=== PATIENT | male | born 1990 | race African-American/Black ===

== ENCOUNTER 2016-12-02 06:28 | Emergency (ER) | payer SELFPAY ==
[~2016-12-02] VITALS: Ht 182.9 cm; Wt 81.6 kg
[~2016-12-02 06:28] MED LIST: ALBU0.632 IH; AMOX500C2 PO; AZIT250T PO; CYCL10TA9 PO; DOXY100C42 PO; HYDR-1231 PO; HYDR-3812 PO; HYDR-700 PO; LORA10CA PO; MINO100C2 PO; NAPR-243 PO; NAPR500T PO; ONDA8TAB9 PO; PENI500T PO; PRD20T PO; PROM5SYR PO; RT-ALBUINH IH; TRAM-42 PO; TRAM50TA2 PO
[2016-12-02] MEDS ORDERED: NS IV 1000 ML 1,000 ML IV ONE (06:44)
[2016-12-02] MEDS ORDERED: predniSONE 20 MG TAB PO ONE (06:45)
[2016-12-02 06:57] LABS: BASOPHILS % (AUTO) 0 % (0-10); EOSINOPHILS # (AUTO) 0.3 10^3/uL (0.0-0.3); EOSINOPHILS % (AUTO) 3 % (0-10); LYMPHOCYTES % (AUTO) 46 % (12-44); MEAN CORPUSCULAR HEMOGLOBIN 28 PG (25-34); MEAN CORPUSCULAR HGB CONC 32 G/DL (32-36); MEAN CORPUSCULAR VOLUME 86 FL (80-99); MEAN PLATELET VOLUME 10.1 FL (7.4-10.4); MONOCYTES # (AUTO) 0.8 X 10^3 (0.0-1.0); MONOCYTES % (AUTO) 9 % (0-12); NEUTROPHILS # (AUTO) 3.6 X 10^3 (1.8-7.8); NEUTROPHILS % (AUTO) 42 % (42-75); PLATELET COUNT 245 10^3/uL (130-400); RED BLOOD COUNT 5.33 10^6/uL (4.35-5.85); WHITE BLOOD COUNT 8.6 10^3/uL (4.3-11.0)
--- NOTE | 2016-12-02 07:06 | ED General ---
General Chief Complaint: General Problems/Pain Stated Complaint: NOT FEELING WELL Nursing Triage Note: C/O WEAKNESS/WEIGHT LOSS Nursing Sepsis Screen: No Definite Risk Source of Information: Patient Exam Limitations: No Limitations History of Present Illness Time Seen by Provider: 06:38 Initial Comments Here with report of continued weakness or weight loss as well as all over and was not feeling well. States that he is eating and drinking okay and no problems with bowel movements or urination. Does report continued weight loss. 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 He has been evaluated for this for over 2 years now. He is currently on prednisone 20 mg daily. Reports taking that as directed. Denies fevers recently. Complaints of persistent muscle aches and weight loss. Timing/Duration: 1-2 Days, Getting Worse Severity: Moderate Associated Systoms: No Chest Pain, No Cough, No Fever/Chills, No Nausea/ Vomiting, No Shortness of Air, Weakness Allergies and Home Medications Allergies Coded Allergies: No Known Drug Allergies (Unverified , 06/14/14) Home Medications Naproxen 500 Mg Tablet #30 500 MG PO BID PRN PRN PAIN Prescribed by: NARESH MATHIS on 11/18/16 1320 Ondansetron 8 Mg Tab.rapdis #10 8 MG PO Q4H PRN PRN NAUSEA/VOMITING Prescribed by: NARESH MATHIS on 10/31/16 1523 Penicillin V Potassium 500 Mg Tablet #28 500 MG PO Q6H Prescribed by: NARESH MATHIS on 11/18/16 1320 Prednisone 20 Mg Tab 20 MG PO DAILY (Reported) Tramadol HCl 50 Mg Tablet #14 50 MG PO Q6H PRN PRN PAIN Prescribed by: NARESH MATHIS on 11/18/16 1320 Constitutional: see HPINo chills, No fever EENTM: no symptoms reported Respiratory: no symptoms reportedNo cough, No short of breath Cardiovascular: no symptoms reportedNo chest pain, No palpitations Gastrointestinal: no symptoms reported see HPINo nausea, No vomiting Genitourinary: no symptoms reported Musculoskeletal: see HPI muscle weakness other (all over muscle pain) Skin: no symptoms reported Psychiatric/Neurological: See HPI All Other Systems Reviewed Negative Unless Noted: Yes Past Ayhadtx-Tkpmik-Riewjf Hx Patient Social History Alcohol Use: Denies Use Recreational Drug Use: No Smoking Status: Current Everyday Smoker Type Used: Cigarettes Former Smoker/When Quit: Feb 04, 2014 Recent Foreign Travel: No Contact w/Someone Who Travel: No Recent Infectious Disease Expo: No Recent Hopitalizations: No Physical Abuse Screen: No Sexual Abuse: No Immunizations Up To Date Tetanus Booster (TDap): Less than 5yrs Date of Pneumonia Vaccine: Apr 25, 2014 Date of Influenza Vaccine: Jul 25, 2013 Seasonal Allergies Seasonal Allergies: Yes Surgeries HX Surgeries: No Respiratory Hx Respiratory Disorders: Yes Respiratory Disorders: Asthma Cardiovascular Hx Cardiac Disorders: No Neurological Hx Neurological Disorders: No Reproductive System Hx Reproductive Disorders: No Sexually Transmitted Disease: No HIV/AIDS: No Genitourinary Hx Genitourinary Disorders: No Gastrointestinal Hx Gastrointestinal Disorders: No Musculoskeletal Hx Musculoskeletal Disorders: Yes (RARE MUSCLE DISEASE-REPORTS NOT SURE WHAT IT IS, TAKES ORAL STEROIDS DAILY) Endocrine Hx Endocrine Disorders: No HEENT HX ENT Disorders: No Cancer Hx Cancer: No Psychosocial Hx Psychiatric Problems: No Integumentary HX Skin/Integumentary Disorder: No Blood Transfusions Hx Blood Disorders: No Reviewed Nursing Assessment Reviewed/Agree w Nursing PMH: Yes Family Medical History Significant Family History: No Pertinent Family Hx Family Medial History: Patient reports no known family medical history. Physical Exam Vital Signs Vital Sign - Last 12Hours 12/02/16 06:43 Temp 97.8 Pulse 87 Resp 20 B/P 147/101 Pulse Ox 98 O2 Delivery Room Air Capillary Refill : Less Than 3 Seconds General Appearance: No Apparent Distress WD/WN HEENT: PERRL/EOMI Pharynx Normal Neck: Non Tender Supple Respiratory: Lungs Clear Normal Breath Sounds Cardiovascular: Regular Rate, Rhythm No Murmur Gastrointestinal: Non Tender Soft Back: Normal Inspection No CVA Tenderness No Vertebral Tenderness Extremity: Non Tender No Calf Tenderness Neurologic/Psychiatric: Alert Oriented x3 Skin: Normal Color Warm/Dry Progress/Results/Core Measures Results/Orders Lab Results Laboratory Tests Test 12/02/16 06:50 12/02/16 07:30 Range/Units Alanine Aminotransferase (ALT/SGPT) 22 0-55 U/L Albumin 4.1 3.2-4.5 G/DL Alkaline Phosphatase 75 40-136 U/L Anion Gap 11 5-14 MMOL/L Aspartate Amino Transf (AST/SGOT) 14 5-34 U/L BUN/Creatinine Ratio 10 Basophils # (Auto) 0.0 0.0-0.1 10^3/uL Basophils (%) (Auto) 0 0-10 % Blood Urea Nitrogen 11 7-18 MG/DL Calcium Level 9.5 8.5-10.1 MG/DL Carbon Dioxide Level 29 21-32 MMOL/L Chloride Level 101 98-107 MMOL/L Creatinine 1.07 0.60-1.30 MG/DL Eosinophils # (Auto) 0.3 0.0-0.3 10^3/uL Eosinophils (%) (Auto) 3 0-10 % Estimat Glomerular Filtration Rate > 60 Glucose Level 101 70-105 MG/DL Hematocrit 46 40-54 % Hemoglobin 14.9 13.3-17.7 G/DL Lymphocytes # (Auto) 4.0 1.0-4.0 X 10^3 Lymphocytes (%) (Auto) 46 H 12-44 % Mean Corpuscular Hemoglobin 28 25-34 PG Mean Corpuscular Hemoglobin Concent 32 32-36 G/DL Mean Corpuscular Volume 86 80-99 FL Mean Platelet Volume 10.1 7.4-10.4 FL Monocytes # (Auto) 0.8 0.0-1.0 X 10^3 Monocytes (%) (Auto) 9 0-12 % Neutrophils # (Auto) 3.6 1.8-7.8 X 10^3 Neutrophils (%) (Auto) 42 42-75 % Platelet Count 245 130-400 10^3/uL Potassium Level 3.5 L 3.6-5.0 MMOL/L Red Blood Count 5.33 4.35-5.85 10^6/uL Red Cell Distribution Width 13.0 10.0-14.5 % Sodium Level 141 135-145 MMOL/L Total Bilirubin 1.1 H 0.1-1.0 MG/DL Total Creatine Kinase 117 30-200 U/L Total Protein 6.7 6.4-8.2 G/DL White Blood Count 8.6 4.3-11.0 10^3/uL Urine Bacteria NEGATIVE /HPF Urine Bilirubin NEGATIVE NEGATIVE Urine Casts NONE /LPF Urine Clarity CLEAR Urine Color YELLOW Urine Crystals NONE /LPF Urine Culture Indicated NO Urine Glucose (UA) NEGATIVE NEGATIVE Urine Ketones NEGATIVE NEGATIVE Urine Leukocyte Esterase 1+ H NEGATIVE Urine Mucus SMALL H /LPF Urine Nitrite NEGATIVE NEGATIVE Urine Protein NEGATIVE NEGATIVE Urine RBC 0-2 /HPF Urine RBC (Auto) 2+ H NEGATIVE Urine Specific [place] 1.015 L 1.016-1.022 Urine Squamous Epithelial Cells RARE /HPF Urine Urobilinogen 4 H NORMAL MG/DL Urine WBC 0-2 /HPF Urine pH 6.5 5-9 Micro Results Microbiology 12/02/16 Influenza Types A,B Antigen (RA) - Final, Complete My Orders Orders-MAURY ROJO MD Cbc With Automated Diff (12/02/16 06:44) Comprehensive Metabolic Panel (12/02/16 06:44) Ua Culture If Indicated (12/02/16 06:44) Influenza A And B Antigens (12/02/16 06:44) Saline Lock/Iv-Start (12/02/16 06:44) Ns Iv 1000 Ml (Sodium Chloride 0.9%) (12/02/16 06:44) Prednisone Tablet (Deltasone Tablet) (12/02/16 06:45) Creatine Kinase (12/02/16 06:48) Medications Given in ED Current Medications Medications Dose Ordered Sig/Wilfred Route Start Time Stop Time Status Last Admin Dose Admin Prednisone 40 mg ONCE ONCE PO 12/02/16 06:45 12/02/16 06:46 DC 12/02/16 06:50 40 MG Sodium Chloride 1,000 ml @ 0 mls/hr Q0M ONCE IV 12/02/16 06:44 12/02/16 06:46 DC 12/02/16 06:50 0 MLS/HR Vital Signs/I&O Vital Sign - Last 12Hours 12/02/16 06:43 Temp 97.8 Pulse 87 Resp 20 B/P 147/101 Pulse Ox 98 O2 Delivery Room Air Blood Pressure Mean: 116 Progress Note : Progress Note Seen and evaluated. 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 Monitor patient. 0750: No significant findings. Patient instructed to follow- up with primary care provider today. Patient states he will do that. Discharged home with return precautions. Patient verbalize understanding instructions and agreement with plan. Departure Impression Impression: Primary Impression: Myalgia Disposition: 01 HOME, SELF-CARE Condition: Improved Departure-Patient Inst. Decision time for Depature: 07:51 Referrals: [facility] [place], [place] (PCP/Family) Primary Care Physician Patient Instructions: Fatigue Add. Discharge Instructions: All discharge instructions reviewed with patient and/or family. Voiced understanding. Drink plenty of fluids. Follow-up with your Dr. today for recheck and further evaluation. Return for worse pain, fever, vomiting, weakness, breathing problems or other concerns as needed. MAURY ROJO MD Dec 02, 2016 07:05
[2016-12-02 07:22] LABS: ALANINE AMINOTRANSFERASE 22 U/L (0-55); ALBUMIN 4.1 G/DL (3.2-4.5); ANION GAP 11 MMOL/L (5-14); ASPARTATE AMINO TRANSFERASE 14 U/L (5-34); BILIRUBIN,TOTAL 1.1 MG/DL (0.1-1.0); BLOOD UREA NITROGEN 11 MG/DL (7-18); BUN/CREATININE RATIO 10; CALCIUM 9.5 MG/DL (8.5-10.1); CARBON DIOXIDE 29 MMOL/L (21-32); CHLORIDE 101 MMOL/L (98-107); CREATINE KINASE 117 U/L (30-200); CREATININE SERUM 1.07 MG/DL (0.60-1.30); GFR ESTIMATED > 60; GLUCOSE 101 MG/DL (70-105); POTASSIUM 3.5 MMOL/L (3.6-5.0); SODIUM 141 MMOL/L (135-145); TOTAL PROTEIN 6.7 G/DL (6.4-8.2)
[2016-12-02 07:40] LABS: BILIRUBIN,URINE NEGATIVE (NEGATIVE); KETONES,URINE NEGATIVE (NEGATIVE); LEUKOCYTE ESTERASE ,URINE 1+ (NEGATIVE); NITRITE,URINE NEGATIVE (NEGATIVE); PH,URINE 6.5 (5-9); PROTEIN,URINE NEGATIVE (NEGATIVE); UROBILINOGEN,URINE 4 MG/DL (NORMAL)
[2016-12-02 07:58] LABS: SQUAMOUS EPITHELIAL CELL,UR RARE /HPF; WBC,URINE 0-2 /HPF
[2016-12-02 08:10] VITALS: BP 138/96
== END 2016-12-02 08:10 | disposition home or self-care (01) ==
LOC: EDUNIT# 06:28 → ER 06:34
DX: M79.1 Myalgia (principal); Z79.52 Long term (current) use of systemic steroids
CPT/HCPCS: 36415; 80053; 81000; 82550; 85025; 87804

== ENCOUNTER 2017-02-17 16:09 | Emergency (ER) | payer SELFPAY ==
[~2017-02-17] VITALS: Ht 180.3 cm; Wt 86.2 kg
--- NOTE | 2017-02-17 16:59 | ED EENT ---
History of Present Illness General Chief Complaint: Dental Problems/Pain Stated Complaint: DENTAL PAIN Nursing Triage Note: PT REPORTS HAD TOOTH PULLED AT [facility] ET C/O PAIN. REPORTS NO PAIN MEDS WERE PRESCRIBED FOR HIM Source: patient Exam Limitations: no limitations History of Present Illness Time seen by provider: 16:59 Initial Comments 26 her old male patient presents to the emergency department with complaints of dental pain after having a tooth extracted today. Patient states he was not given anything for pain at the dental clinic. Has taken motrin w/o improvement. Timing/Duration: abrupt, this afternoon Location: dental Prearrival Treatment: over the counter meds Presenting Symptoms/Injuries: left lower dental pain Modifying Factors: Worse With Other (worse with palpation) Allergies and Home Medications Allergies Coded Allergies: No Known Drug Allergies (Unverified , 06/14/14) Home Medications Hydrocodone/Acetaminophen 1 Each Tablet, 1 EACH PO Q4H PRN for PAIN, #14 Ref 0 Prescribed by: TED STREET on 02/17/17 1713 Naproxen 500 Mg Tablet, 500 MG PO BID PRN for PAIN, #30 Prescribed by: NARESH MATHIS on 11/18/16 1320 Ondansetron 8 Mg Tab.rapdis, 8 MG PO Q4H PRN for NAUSEA/VOMITING, #10 Prescribed by: NARESH MATHIS on 10/31/16 1523 Penicillin V Potassium 500 Mg Tablet, 500 MG PO Q6H, #28 Prescribed by: NARESH MATHIS on 11/18/16 1320 Prednisone 20 Mg Tab, 20 MG PO DAILY, (Reported) Tramadol HCl 50 Mg Tablet, 50 MG PO Q6H PRN for PAIN, #14 Prescribed by: NARESH MATHIS on 11/18/16 1320 Review of Systems Constitutional: No chills, No dizziness, No fever, No malaise Eyes: No Symptoms Reported Ears: No Symptoms Reported Nose: no symptoms reported Mouth: see HPI, pain, denies swelling Throat: denies pain, denies swelling, denies neck stiffness, denies hoarse, denies aphonia, denies muffled, denies painful swallowing, denies difficulty with fluids Respiratory: no symptoms reported Cardiovascular: no symptoms reported Gastrointestinal: No abdominal pain, No nausea, No vomiting Skin: no symptoms reported Neurological: No Symptoms Reported All Other Systems Reviewed Negative Unless Noted: Yes (Negative excepted noted.) Past Emhycuo-Hqyowp-Ptphnv Hx Patient Social History Alcohol Use: Denies Use Recreational Drug Use: No Smoking Status: Current Everyday Smoker Type Used: Cigarettes Former Smoker/When Quit: Feb 04, 2014 Recent Foreign Travel: No Contact w/Someone Who Travel: No Recent Infectious Disease Expo: No Recent Hopitalizations: No Immunizations Up To Date Tetanus Booster (TDap): Less than 5yrs Date of Pneumonia Vaccine: Apr 25, 2014 Date of Influenza Vaccine: Jul 25, 2013 Seasonal Allergies Seasonal Allergies: Yes Surgeries HX Surgeries: No (DENTAL SURG) Respiratory Hx Respiratory Disorders: Yes Respiratory Disorders: Asthma Cardiovascular Hx Cardiac Disorders: No Neurological Hx Neurological Disorders: No Reproductive System Hx Reproductive Disorders: No Sexually Transmitted Disease: No HIV/AIDS: No Genitourinary Hx Genitourinary Disorders: No Gastrointestinal Hx Gastrointestinal Disorders: No Musculoskeletal Hx Musculoskeletal Disorders: Yes (RARE MUSCLE DISEASE-REPORTS NOT SURE WHAT IT IS, TAKES ORAL STEROIDS DAILY) Endocrine Hx Endocrine Disorders: No HEENT HX ENT Disorders: No Cancer Hx Cancer: No Psychosocial Hx Psychiatric Problems: No Integumentary HX Skin/Integumentary Disorder: No Blood Transfusions Hx Blood Disorders: No Reviewed Nursing Assessment Reviewed/Agree w Nursing PMH: Yes Family Medical History Significant Family History: No Pertinent Family Hx Family Medial History: Patient reports no known family medical history. Physical Exam Vital Signs Vital Sign - Last 12Hours 02/17/17 16:49 Temp 97.2 Pulse 70 Resp 18 B/P (MAP) 123/78 Pulse Ox 97 O2 Delivery Room Air General Appearance: WD/WN, no apparent distress Eyes: bilateral eye EOMI, bilateral eye PERRL, bilateral eye normal inspection Nose: normal inspection Mouth/Throat: pharynx normal, dental tenderness (left lower tenderness with post extraction changes. No active bleeding or drainage noted.), No excessive drooling, No mandibular swelling, No maxillary swelling Neck: non-tender, full range of motion, supple, normal inspection Cardiovascular: regular rate, rhythm, no murmur Respiratory: lungs clear, normal breath sounds, no respiratory distress Neurologic/Psychiatric: alert, normal mood/affect, oriented x 3 Skin: normal color, warm/dry Progress/Results/Core Measures Results/Orders My Orders Orders - TED STREET Hydrocodone/Apap 5/325 Tablet (Lortab 5 (02/17/17 17:11) Vital Signs/I&O Vital Sign - Last 12Hours 02/17/17 02/17/17 16:49 17:20 Temp 97.2 97.2 Pulse 70 70 Resp 18 18 B/P (MAP) 123/78 Pulse Ox 97 97 O2 Delivery Room Air Blood Pressure Mean: 93 Departure Communication Progress Notes Patient seen and evaluated. Plan for discharge to home. Impression Impression: Primary Impression: Pain, dental Additional Impression: Status post tooth extraction Qualified Codes: K08.409 - Partial loss of teeth, unspecified cause, unspecified class Disposition: HOME, SELF-CARE Condition: Improved Departure-Patient Inst. Decision time for Depature: 17:13 Referrals: [facility] (PCP/Family) Primary Care Physician Patient Instructions: Dental Pain (DC) Add. Discharge Instructions: All discharge instructions reviewed with patient and/or family. Voiced understanding. Medications as instructed. Ibuprofen 800 mg by mouth every 8 hours as needed for pain. Ice pack or a heating pack as needed for pain. Soft diet. Push fluids. Follow-up with your dentist as an outpatient for recheck if needed. Follow-up with your family practitioner for recheck if needed. Return to the emergency department for worsened symptoms or any other concerns. Scripts Hydrocodone/Acetaminophen (Hydrocodon -Acetaminophen 5-325) 1 Each Tablet 1 EACH PO Q4H Y for PAIN, #14 TAB 0 Refills Prov: TED STREET 02/17/[address] Feb 17, 2017 16:59
[2017-02-17] MEDS ORDERED: HYDROcodone/APAP 5 MG/325 MG (LORTAB) TAB PO STA (17:11)
[2017-02-17] MEDS ORDERED: HYDR-3812 PO (17:13)
[2017-02-17 17:20] VITALS: BP 123/78
--- OUTSIDE RECORDS SUMMARY | 2017-03-04 18:55 | XMS REPORT ---
Author Author JUNE TAMAYO Organization [employer] Address Unknown Phone Unavailable Care Team Providers Care Cost Engineer Name Role Phone JUNE TAMAYO CP Unavailable Allergies No Known Allergies Problems Problem Type Condition Code Onset Dates Condition Status Problem Adjustment disorder with depressed mood 309.0 Active Problem Asthma, unspecified, unspecified status 493.90 Active Problem Other malaise and fatigue 780.79 Active Problem Polyuria 788.42 Active Problem Polydipsia 783.5 Active Problem Spasm of muscle 728.85 Active Problem Other chronic pain 338.29 Active Problem Depressive disorder, 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
--- OUTSIDE RECORDS SUMMARY | 2017-03-04 18:56 | XMS REPORT ---
Author Author JUNE TAMAYO Organization [employer] Address Unknown Phone Unavailable Care Team Providers Care Typer Name Role Phone JUNE TAMAYO CP Unavailable [...]
--- OUTSIDE RECORDS SUMMARY | 2017-03-04 18:56 | XMS REPORT ---
Author Author JUNE TAMAYO Organization [employer] Address Unknown Phone Unavailable Care Team Providers Care Acquisitions Editor Name Role Phone JUNE TAMAYO CP Unavailable Allergies No Known Allergies Problems Problem Type Condition ICD-9 Code Onset Dates Condition Status Problem Adjustment [...]
--- OUTSIDE RECORDS SUMMARY | 2017-03-04 18:57 | XMS REPORT ---
Author Author JUNE TAMAYO Organization [employer] Address Unknown Phone Unavailable Care Team Providers Care Mergers And Acquisitions Banker Name Role Phone JUNE TAMAYO CP Unavailable [...]
--- OUTSIDE RECORDS SUMMARY | 2017-03-04 18:57 | XMS REPORT ---
Author Author JUNE TAMAYO Organization [employer] Address Unknown Phone Unavailable Care Team Providers Care Assistant Warehouse Manager Name Role Phone JUNE TAMAYO CP Unavailable [...] vaccination and inoculation, Influenza V04.81 Active Medications Medication Code System Code Instructions Start Date End Date Status Dosage HydrOXYzine HCl [facility] [address]-24 25 MG Orally every 8 hrs as needed Jul 26, 2015 1 tablet as needed Results No Known Results Summary Purpose [employer] Submission
--- OUTSIDE RECORDS SUMMARY | 2017-03-04 18:57 | XMS REPORT ---
Author Author JUNE TAMAYO Organization [employer] Address Unknown Phone Unavailable Care Team Providers Care Cage Manager Name Role Phone JUNE TAMAYO CP [...] Instructions Start Date End Date Status Dosage PredniSONE [facility] [address]-65 20 MG Orally Once a day May 22, 2015 1 tablet with food or milk Results No Known Results Summary Purpose [employer] Submission
--- OUTSIDE RECORDS SUMMARY | 2017-03-04 18:57 | XMS REPORT | Continuity of Care Document ---
Author Author [facility] Organization [facility] Address Unknown Phone Unavailable Allergies Active Description Code Type Severity Reaction Onset Reported/Identified Relationship to Patient Clinical Status Yes No Known Drug Allergies [id number] Drug Allergy Unknown N/ A 06/14/2014 Medications Problems Date Dx Coded Attending Type Code Diagnosis Diagnosed By 06/14/2014 NARESH MATHIS APRN Ot 782.3 EDEMA 06/14/2014 NARESH MATHIS APRN Ot E932.0 ADV EFF CORTICOSTEROIDS 06/16/2014 RANCHO AMAYA, TAMI Russell Ot 786.02 ORTHOPNEA 06/16/2014 RANCHO AMAYA, TAMI Russell Ot E932.0 ADV EFF CORTICOSTEROIDS 06/17/2014 JUNE TAMAYO APRN 493.90 ASTHMA UNSPECIFIED 06/17/2014 JUNE TAMAYO APRN 493.90 ASTHMA UNSPECIFIED 06/17/2014 ANA MARIA JARAMILLO PHD 493.90 ASTHMA UNSPECIFIED 06/17/2014 JUNE TAMAYO APRN 493.90 ASTHMA UNSPECIFIED 06/17/2014 CLINT MADDEN, ANA MARIA Dumont 493.90 ASTHMA UNSPECIFIED 06/17/2014 CLINT MADDEN, ANA MARIA Dumont 493.90 ASTHMA UNSPECIFIED 06/17/2014 SHANNA DE LA VEGA DO 493.90 ASTHMA UNSPECIFIED 06/25/2014 PARTH AMAYA, MEGA Light Ot 729.1 MYALGIA AND MYOSITIS NOS 06/27/2014 JUNE TAMAYO APRN 780.79 FATIGUE 06/27/2014 JUNE TAMAYO APRN 783.5 POLYDIPSIA 06/27/2014 JUNE TAMAYO APRN 788.42 POLYURIA 06/27/2014 CLINT MADDEN, ANA MARIA Dumont 780.79 FATIGUE 06/27/2014 ANA MARIA JARAMILLO PHD 783.5 POLYDIPSIA 06/27/2014 ANA MARIA JARAMILLO PHD 788.42 POLYURIA 06/27/2014 JUNE TAMAYO APRN 780.79 FATIGUE 06/27/2014 JUNE TAMAYO APRN 783.5 POLYDIPSIA 06/27/2014 JUNE TAMAYO APRN 788.42 POLYURIA 06/27/2014 ANA MARIA JARAMILLO PHD 780.79 FATIGUE 06/27/2014 ANA MARIA JARAMILLO PHD 783.5 POLYDIPSIA 06/27/2014 ANA MARIA JARAMILLO PHD 788.42 POLYURIA 06/27/2014 ANA MARIA JARAMILLO PHD 780.79 FATIGUE 06/27/2014 ANA MARIA JARAMILLO PHD 783.5 POLYDIPSIA 06/27/2014 ANA MARIA JARAMILLO PHD 788.42 POLYURIA 06/27/2014 SHANNA DE LA VEGA DO 780.79 FATIGUE 06/27/2014 SHANNA DE LA VEGA DO 783.5 POLYDIPSIA 06/27/2014 SHANNA DE LA VEGA DO 788.42 POLYURIA 08/07/2014 NARESH MATHIS DIESEL TRACTOR OPERATOR Ot 288.60 LEUKOCYTOSIS, UNSPECIFIED 08/07/2014 NARESH MATHIS DIESEL TRACTOR OPERATOR Ot 719.46 JOINT PAIN-L/LEG 08/11/2014 ANA MARIA JARAMILLO PHD 309.0 AD ADJ D/O W DEPRESSED 08/11/2014 JUNE TAMAYO APRN 309.0 AD ADJ D/O W DEPRESSED 08/11/2014 ANA MARIA JARAMILLO PHD 309.0 AD ADJ D/O W DEPRESSED 08/11/2014 ANA MARIA JARAMILLO PHD 309.0 AD ADJ D/O W DEPRESSED 08/11/2014 SHANNA DE LA VEGA DO 309.0 AD ADJ D/O W DEPRESSED 08/29/2014 JUNE TAMAYO APRN 338.29 CHRONIC PAIN 08/29/2014 JUNE TAMAYO APRN 728.85 MUSCLE SPASM 08/29/2014 ANA MARIA JARAMILLO PHD 338.29 CHRONIC PAIN 08/29/2014 ANA MARIA JARAMILLO PHD 728.85 MUSCLE SPASM 08/29/2014 ANA MARIA JARAMILOL PHD 338.29 CHRONIC PAIN 08/29/2014 ANA MARIA JARAMILLO PHD 728.85 MUSCLE SPASM 08/29/2014 SHANNA DE LA VEGA DO 338.29 CHRONIC PAIN 08/29/2014 SHANNA DE LA VEGA DO 728.85 MUSCLE SPASM 09/28/2014 ANA MARIA JARAMILLO PHD 311 MO DEPRESS NOS 09/28/2014 ANA MARIA JARAMILLO PHD 311 MO DEPRESS NOS 09/28/2014 SHANNA DE LA VEGA DO 311 MO DEPRESS NOS 11/29/2014 SHANNA DE LA VEGA DO V04.81 FLU SHOT 10/09/2015 TED VELA Ot J02.9 ACUTE PHARYNGITIS, UNSPECIFIED 10/09/2015 TED VELA Ot J18.9 PNEUMONIA, UNSPECIFIED ORGANISM 10/09/2015 TED VELA Ot R94.6 ABNORMAL RESULTS OF THYROID FUNCTION GABRIEL 04/16/2016 JOSH EDMONDSON MD Ot E86.0 DEHYDRATION 04/16/2016 JOSH EDMONDSON MD Ot M25.50 PAIN IN UNSPECIFIED JOINT 04/16/2016 JOSH EDMONDSON MD Ot M62.82 RHABDOMYOLYSIS 04/16/2016 JOSH EDMONDSON MD Ot N17.9 ACUTE KIDNEY FAILURE, UNSPECIFIED 04/16/2016 JOSH EDMONDSON MD Ot Z87.891 PERSONAL HISTORY OF NICOTINE DEPENDENCE 06/17/2016 TED VELA Ot K02.9 DENTAL CARIES, UNSPECIFIED 06/17/2016 TED VELA Ot K04.7 PERIAPICAL ABSCESS WITHOUT SINUS 06/17/2016 TED VELA Ot K08.8 OTHER SPECIFIED DISORDERS OF TEETH AND S 06/18/2016 TED VELA Ot K02.9 DENTAL CARIES, UNSPECIFIED 06/18/2016 TED VELA Ot K04.7 PERIAPICAL ABSCESS WITHOUT SINUS 06/18/2016 TED VELA Ot K08.8 OTHER SPECIFIED DISORDERS OF TEETH AND S 06/23/2016 TED VELA Ot K02.9 DENTAL CARIES, UNSPECIFIED 06/23/2016 TED VELA Ot K04.7 PERIAPICAL ABSCESS WITHOUT SINUS 06/23/2016 TED VELA Ot K08.8 OTHER SPECIFIED DISORDERS OF TEETH AND S 06/26/2016 MAURY ROJO MD Ot M79.1 MYALGIA 06/26/2016 MAURY ROJO MD Ot R10.31 RIGHT LOWER QUADRANT PAIN 06/26/2016 MAURY ROJO MD Ot Z87.442 PERSONAL HISTORY OF URINARY CALCULI 06/27/2016 MAURY ROJO MD Ot M79.1 MYALGIA 06/27/2016 MAURY ROJO MD Ot R10.31 RIGHT LOWER QUADRANT PAIN 06/27/2016 MAURY ROJO MD, Ot Z87.442 PERSONAL HISTORY OF URINARY CALCULI 07/16/2016 TED VELA Ot K02.9 DENTAL CARIES, UNSPECIFIED 07/16/2016 TED VELA Ot K04.7 PERIAPICAL ABSCESS WITHOUT SINUS 07/16/2016 TED VELA Ot K08.8 OTHER SPECIFIED DISORDERS OF TEETH AND S 07/19/2016 MAURY ROJO MD Ot M79.1 MYALGIA 07/19/2016 MAURY ROJO MD Ot R10.31 RIGHT LOWER QUADRANT PAIN 07/19/2016 MAURY ROJO MD Ot Z87.442 PERSONAL HISTORY OF URINARY CALCULI 10/24/2016 NARESH MATHIS APRN Ot J06.9 ACUTE UPPER RESPIRATORY INFECTION, UNSPE 10/24/2016 NARESH MATHIS APRN Ot M62.82 RHABDOMYOLYSIS 10/24/2016 NARESH MATHIS APRN Ot R09.81 NASAL CONGESTION 10/24/2016 NARESH MATHIS APRN Ot Z79.52 YARD ENGINEER (CURRENT) USE OF SYSTEMIC STER 10/25/2016 NARESH MATHIS APRN Ot J06.9 ACUTE UPPER RESPIRATORY INFECTION, UNSPE 10/25/2016 NARESH MATHIS APRN Ot M62.82 RHABDOMYOLYSIS 10/25/2016 NARESH MATHIS APRN Ot R09.81 NASAL CONGESTION 10/25/2016 NARESH MATHIS APRN Ot Z79.52 YARD ENGINEER (CURRENT) USE OF SYSTEMIC STER 10/30/2016 NARESH MATHIS APRN Ot J06.9 ACUTE UPPER RESPIRATORY INFECTION, UNSPE 10/30/2016 NARESH MATHIS APRN Ot M62.82 RHABDOMYOLYSIS 10/30/2016 NARESH MATHIS APRN Ot R09.81 NASAL CONGESTION 10/30/2016 NARESH MATHIS APRN Ot Z79.52 YARD ENGINEER (CURRENT) USE OF SYSTEMIC STER 11/18/2016 NARESH MATHIS APRN Ot K02.9 DENTAL CARIES, UNSPECIFIED 11/18/2016 NARESH MATHIS APRN Ot K08.9 DISORDER OF TEETH AND SUPPORTING STRUCTU 11/20/2016 NARESH MATHIS APRN Ot K02.9 DENTAL CARIES, UNSPECIFIED 11/20/2016 NARESH MATHIS APRN Ot K08.9 DISORDER OF TEETH AND SUPPORTING STRUCTU 12/02/2016 MAURY ROJO MD Ot M79.1 MYALGIA 12/02/2016 MAURY ROJO MD Ot R53.1 WEAKNESS 12/02/2016 MAURY ROJO MD Ot Z79.52 CUSTODIAL (CURRENT) USE OF SYSTEMIC STER 12/03/2016 MAURY ROJO MD Ot M79.1 MYALGIA 12/03/2016 MAURY ROJO MD Ot R53.1 WEAKNESS 12/03/2016 MAURY ROJO MD Ot Z79.52 CUSTODIAL (CURRENT) USE OF SYSTEMIC STER 02/18/2017 TED VELA Ot F17.210 NICOTINE DEPENDENCE, CIGARETTES, UNCOMPL 02/18/2017 TED VELA Ot G89.18 OTHER ACUTE POSTPROCEDURAL PAIN 02/18/2017 TED VELA Ot K08.409 PARTIAL LOSS OF TEETH, UNSPECIFIED CAUSE 02/18/2017 TED VELA Ot K08.9 DISORDER OF TEETH AND SUPPORTING STRUCTU 02/22/2017 TED VELA Ot F17.210 NICOTINE DEPENDENCE, CIGARETTES, UNCOMPL 02/22/2017 TED VELA Ot G89.18 OTHER ACUTE POSTPROCEDURAL PAIN 02/22/2017 TED VELA Ot K08.409 PARTIAL LOSS OF TEETH, UNSPECIFIED CAUSE 02/22/2017 TED VELA Ot K08.9 DISORDER OF TEETH AND SUPPORTING STRUCTU Procedures Code Description [place] [address] ROUTINE VENIPUNCTURE 06/27/2014 51326 TSH 06/27/2014 20056 SED/ESR RATE (IN HOUSE) 06/27/2014 09719 CRP 06/27/2014 59787 OXIMETRY 2013 11552 CBC 06/27/2014 9543018 GFR CALC (RESULT ONLY) 06/27/2014 36557 CMP 06/27/2014 72011 LIPID PANEL 06/27 06093 PSYCH DIAGNOSTIC EVALUATION 08/11/2014 38549 ROUTINE VENIPUNCTURE 08/29/2014 01853 CORTISOL 2013 91335 ASO 08/29/2014 29749 RA FACTOR 2013 ANAANA LINDA ANALYZER (SCREEN) 08/29/2014 95960 MAGNESIUM 2013 86998 PSYTX PT&/FAMILY 30 MINUTES 09/28/2014 Results Test Result Range Complete blood count (CBC) with automated white blood cell (WBC) differential - 06/26/16 17:48 Blood leukocytes automated count (number/volume) 10.8 10*3/ uL 4.3-11.0 Blood erythrocytes automated count (number/volume) 5.05 10*6 /uL 4.35-5.85 Venous blood hemoglobin measurement (mass/volume) 14.4 g/dL 13.3-17.7 Blood hematocrit (volume fraction) 44 % 40-54 Automated erythrocyte mean corpuscular volume 87 [foz_us] 80-99 Automated erythrocyte mean corpuscular hemoglobin (mass per erythrocyte) 29 pg 25-34 Automated erythrocyte mean corpuscular hemoglobin concentration measurement ( mass/volume) 33 g/dL 32-36 Automated erythrocyte distribution width ratio 12.9 % 10.0-14.5 Automated blood platelet count (count/volume) 286 10*3/uL 130-400 Automated blood platelet mean volume measurement 10.2 [foz_ us] 7.4-10.4 Automated blood neutrophils/100 leukocytes 83 % 42-75 Automated blood lymphocytes/100 leukocytes 13 % 12-44 Blood monocytes/100 leukocytes 3 % 0-12 Automated blood eosinophils/100 leukocytes 0 % 0-10 Automated blood basophils/100 leukocytes 0 % 0-10 Blood neutrophils automated count (number/volume) 8.9 10*3 1.8-7.8 Blood lymphocytes automated count (number/volume) 1.4 10*3 1.0-4.0 Blood monocytes automated count (number/volume) 0.4 10*3 0.0-1.0 Automated eosinophil count 0.0 10*3/uL 0.0-0.3 Automated blood basophil count (count/volume) 0.0 10*3/uL 0.0-0.1 Comprehensive metabolic panel - 06/26/16 17:48 Serum or plasma sodium measurement (moles/volume) 141 mmol/ L 135-145 Serum or plasma potassium measurement (moles/volume) 4.0 mmol/L 3.6-5.0 Serum or plasma chloride measurement (moles/volume) 105 mmol /L 98-107 Carbon dioxide 27 mmol/L 21-32 Serum or plasma anion gap determination (moles/volume) 9 mmol/L 5-14 Serum or plasma urea nitrogen measurement (mass/volume) 11 mg/dL 7-18 Serum or plasma creatinine measurement (mass/volume) 1.11 mg /dL 0.60-1.30 Serum or plasma urea nitrogen/creatinine mass ratio 10 NRG Serum or plasma creatinine measurement with calculation of estimated glomerular filtration rate > NRG Serum or plasma glucose measurement (mass/volume) 121 mg/dL 70-105 Serum or plasma calcium measurement (mass/volume) 9.9 mg/dL 8.5-10.1 Serum or plasma total bilirubin measurement (mass/volume) 0.4 mg/dL 0.1-1.0 Serum or plasma alkaline phosphatase measurement (enzymatic activity/volume) 72 U/L 40-136 Serum or plasma aspartate aminotransferase measurement (enzymatic activity/ volume) 21 U/L 5-34 Serum or plasma alanine aminotransferase measurement (enzymatic activity/volume ) 32 U/L 0-55 Serum or plasma protein measurement (mass/volume) 7.3 g/dL 6.4-8.2 Serum or plasma albumin measurement (mass/volume) 4.3 g/dL 3.2-4.5 Serum or plasma creatine kinase measurement (enzymatic activity/volume) - 06/26 17:48 Serum or plasma creatine kinase measurement (enzymatic activity/volume) 138 U/L 30-200 Myoglobin, serum - 06/26/16 17:48 Myoglobin, serum 29.5 ng/mL 10.0-92.0 Complete urinalysis with reflex to culture - 06/26/16 18:03 Urine color determination YELLOW NRG Urine clarity determination CLEAR NRG Urine pH measurement by test strip 6 5- 9 Specific gravity of urine by test strip 1.020 1.016-1.022 Urine protein assay by test strip, semi-quantitative 1+ NEGATIVE Urine glucose detection by automated test strip NEGATIVE NEGATIVE Erythrocytes detection in urine sediment by light microscopy 4+ NEGATIVE Urine ketones detection by automated test strip NEGATIVE NEGATIVE Urine nitrite detection by test strip NEGATIVE NEGATIVE Urine total bilirubin detection by test strip NEGATIVE NEGATIVE Urine urobilinogen measurement by automated test strip (mass/volume) 1 mg/dL NORMAL Urine leukocyte esterase detection by dipstick 1+ NEGATIVE Automated urine sediment erythrocyte count by microscopy (number/high power field) [HPF] NRG Automated urine sediment leukocyte count by microscopy (number/high power field ) [HPF] NRG Bacteria detection in urine sediment by light microscopy NONE NRG Crystals detection in urine sediment by light microscopy NONE NRG Casts detection in urine sediment by light microscopy NONE NRG Mucus detection in urine sediment by light microscopy NEGATIVE NRG Complete urinalysis with reflex to culture NO NRG Complete blood count (CBC) with automated white blood cell (WBC) differential - 10/31/16 14:26 Blood leukocytes automated count (number/volume) 8.0 10*3/ uL 4.3-11.0 Blood erythrocytes automated count (number/volume) 5.25 10*6 /uL 4.35-5.85 Venous blood hemoglobin measurement (mass/volume) 14.6 g/dL 13.3-17.7 Blood hematocrit (volume fraction) 45 % 40-54 Automated erythrocyte mean corpuscular volume 85 [foz_us] 80-99 Automated erythrocyte mean corpuscular hemoglobin (mass per erythrocyte) 28 pg 25-34 Automated erythrocyte mean corpuscular hemoglobin concentration measurement ( mass/volume) 33 g/dL 32-36 Automated erythrocyte distribution width ratio 13.0 % 10.0-14.5 Automated blood platelet count (count/volume) 306 10*3/uL 130-400 Automated blood platelet mean volume measurement 10.1 [foz_ us] 7.4-10.4 Automated blood neutrophils/100 leukocytes 77 % 42-75 Automated blood lymphocytes/100 leukocytes 15 % 12-44 Blood monocytes/100 leukocytes 7 % 0-12 Automated blood eosinophils/100 leukocytes 1 % 0-10 Automated blood basophils/100 leukocytes 0 % 0-10 Blood neutrophils automated count (number/volume) 6.1 10*3 1.8-7.8 Blood lymphocytes automated count (number/volume) 1.2 10*3 1.0-4.0 Blood monocytes automated count (number/volume) 0.5 10*3 0.0-1.0 Automated eosinophil count 0.1 10*3/uL 0.0-0.3 Automated blood basophil count (count/volume) 0.0 10*3/uL 0.0-0.1 Comprehensive metabolic panel - 10/31/16 14:26 Serum or plasma sodium measurement (moles/volume) 146 mmol/ L 135-145 Serum or plasma potassium measurement (moles/volume) 3.8 mmol/L 3.6-5.0 Serum or plasma chloride measurement (moles/volume) 105 mmol /L 98-107 Carbon dioxide 28 mmol/L 21-32 Serum or plasma anion gap determination (moles/volume) 13 mmol/L 5-14 Serum or plasma urea nitrogen measurement (mass/volume) 7 mg /dL 7-18 Serum or plasma creatinine measurement (mass/volume) 0.90 mg /dL 0.60-1.30 Serum or plasma urea nitrogen/creatinine mass ratio 8 NRG Serum or plasma creatinine measurement with calculation of estimated glomerular filtration rate > NRG Serum or plasma glucose measurement (mass/volume) 103 mg/dL 70-105 Serum or plasma calcium measurement (mass/volume) 9.7 mg/dL 8.5-10.1 Serum or plasma total bilirubin measurement (mass/volume) 0.8 mg/dL 0.1-1.0 Serum or plasma alkaline phosphatase measurement (enzymatic activity/volume) 78 U/L 40-136 Serum or plasma aspartate aminotransferase measurement (enzymatic activity/ volume) 39 U/L 5-34 Serum or plasma alanine aminotransferase measurement (enzymatic activity/volume ) 56 U/L 0-55 Serum or plasma protein measurement (mass/volume) 7.2 g/dL 6.4-8.2 Serum or plasma albumin measurement (mass/volume) 4.3 g/dL 3.2-4.5 Serum heterophile antibody titer - 10/31/16 14:26 Serum heterophile antibody titer NEGATIVE NEGATIVE Influenza virus A and B antigen detection - 12/02/16 06:47 FLU RESULT NEGATIVE FOR INFLUENZA A AND B ANTIGENS BY [facility] Complete blood count (CBC) with automated white blood cell (WBC) differential - 12/02/16 06:50 Blood leukocytes automated count (number/volume) 8.6 10*3/ uL 4.3-11.0 Blood erythrocytes automated count (number/volume) 5.33 10*6 /uL 4.35-5.85 Venous blood hemoglobin measurement (mass/volume) 14.9 g/dL 13.3-17.7 Blood hematocrit (volume fraction) 46 % 40-54 Automated erythrocyte mean corpuscular volume 86 [foz_us] 80-99 Automated erythrocyte mean corpuscular hemoglobin (mass per erythrocyte) 28 pg 25-34 Automated erythrocyte mean corpuscular hemoglobin concentration measurement ( mass/volume) 32 g/dL 32-36 Automated erythrocyte distribution width ratio 13.0 % 10.0-14.5 Automated blood platelet count (count/volume) 245 10*3/uL 130-400 Automated blood platelet mean volume measurement 10.1 [foz_ us] 7.4-10.4 Automated blood neutrophils/100 leukocytes 42 % 42-75 Automated blood lymphocytes/100 leukocytes 46 % 12-44 Blood monocytes/100 leukocytes 9 % 0-12 Automated blood eosinophils/100 leukocytes 3 % 0-10 Automated blood basophils/100 leukocytes 0 % 0-10 Blood neutrophils automated count (number/volume) 3.6 10*3 1.8-7.8 Blood lymphocytes automated count (number/volume) 4.0 10*3 1.0-4.0 Blood monocytes automated count (number/volume) 0.8 10*3 0.0-1.0 Automated eosinophil count 0.3 10*3/uL 0.0-0.3 Automated blood basophil count (count/volume) 0.0 10*3/uL 0.0-0.1 Comprehensive metabolic panel - 12/02/16 06:50 Serum or plasma sodium measurement (moles/volume) 141 mmol/ L 135-145 Serum or plasma potassium measurement (moles/volume) 3.5 mmol/L 3.6-5.0 Serum or plasma chloride measurement (moles/volume) 101 mmol /L 98-107 Carbon dioxide 29 mmol/L 21-32 Serum or plasma anion gap determination (moles/volume) 11 mmol/L 5-14 Serum or plasma urea nitrogen measurement (mass/volume) 11 mg/dL 7-18 Serum or plasma creatinine measurement (mass/volume) 1.07 mg /dL 0.60-1.30 Serum or plasma urea nitrogen/creatinine mass ratio 10 NRG Serum or plasma creatinine measurement with calculation of estimated glomerular filtration rate > NRG Serum or plasma glucose measurement (mass/volume) 101 mg/dL 70-105 Serum or plasma calcium measurement (mass/volume) 9.5 mg/dL 8.5-10.1 Serum or plasma total bilirubin measurement (mass/volume) 1.1 mg/dL 0.1-1.0 Serum or plasma alkaline phosphatase measurement (enzymatic activity/volume) 75 U/L 40-136 Serum or plasma aspartate aminotransferase measurement (enzymatic activity/ volume) 14 U/L 5-34 Serum or plasma alanine aminotransferase measurement (enzymatic activity/volume ) 22 U/L 0-55 Serum or plasma protein measurement (mass/volume) 6.7 g/dL 6.4-8.2 Serum or plasma albumin measurement (mass/volume) 4.1 g/dL 3.2-4.5 Serum or plasma creatine kinase measurement (enzymatic activity/volume) - 12/02 06:50 Serum or plasma creatine kinase measurement (enzymatic activity/volume) 117 U/L 30-200 Complete urinalysis with reflex to culture - 12/02/16 07:30 Urine color determination YELLOW NRG Urine clarity determination CLEAR NRG Urine pH measurement by test strip 6.5 5 -9 Specific gravity of urine by test strip 1.015 1.016-1.022 Urine protein assay by test strip, semi-quantitative NEGATIVE NEGATIVE Urine glucose detection by automated test strip NEGATIVE NEGATIVE Erythrocytes detection in urine sediment by light microscopy 2+ NEGATIVE Urine ketones detection by automated test strip NEGATIVE NEGATIVE Urine nitrite detection by test strip NEGATIVE NEGATIVE Urine total bilirubin detection by test strip NEGATIVE NEGATIVE Urine urobilinogen measurement by automated test strip (mass/volume) 4 mg/dL NORMAL Urine leukocyte esterase detection by dipstick 1+ NEGATIVE Automated urine sediment erythrocyte count by microscopy (number/high power field) [HPF] NRG Automated urine sediment leukocyte count by microscopy (number/high power field ) [HPF] NRG Bacteria detection in urine sediment by light microscopy NEGATIVE NRG Squamous epithelial cells detection in urine sediment by light microscopy RARE NRG Crystals detection in urine sediment by light microscopy NONE NRG Casts detection in urine sediment by light microscopy NONE NRG Mucus detection in urine sediment by light microscopy SMALL NRG Complete urinalysis with reflex to culture NO NRG Encounters ACCT No. Visit Date/Time Discharge Status Pt. Type Provider Facility Loc./Unit Complaint [id number] 05/26/2014 11:50:41 05/26/2014 23:59:00 DIS Outpatient DEANN WILLOUGHBY [facility] FAVIO [id number] 05/03/2014 18:21:00 05/03/2014 19:29:00 DIS Emergency [facility] FED
--- OUTSIDE RECORDS SUMMARY | 2017-03-04 18:58 | XMS REPORT ---
Author Author JUNE TAMAYO Organization [employer] Address Unknown Phone Unavailable Care Team Providers Care Hat Trimmer Name Role Phone JUNE TAMAYO CP Unavailable Allergies, Adverse Reactions, Alerts Substance Reaction Event Type N.K.D.A. Info Not Available Non Drug Allergy Problems Problem Type Condition Code Onset Dates Condition Status Assessment Muscle cramp R25.2 Active Problem Adjustment disorder with depressed mood 309.0 [...] Date End Date Status Dosage HydrOXYzine HCl [facility] [address]-51 25 MG Orally every 8 hrs as needed Jul 26, 2015 1 tablet as needed ProAir HFA [facility] [address]-20 90 mcg/actuation 4 times a day June 17, 2014 2 puffs by Inhalation route 4 times per day PredniSONE [facility] [address]-59 20 MG Orally Once a day May 22, 2015 1 tablet with food or milk Cyclobenzaprine HCl [facility] [address]-76 10 MG Orally 2 times a day Nov 13, 2015 Dec 13, 2015 1 tablet Procedures Procedure Coding System Code Date Office Visit, Est Pt., Level 3 CPT-4 26183 Nov 13, 2015 Vital Signs Date/Time: Nov 13, 2015 Temperature 97.9 F Weight 213.9 lbs Height 72 in BMI 29.01 Index Blood Pressure Diastolic 84 mmHg Blood Pressure Systolic 118 mmHg Cardiac Monitoring Heart Rate 64 bpm Results No Known Results Summary Purpose [employer] Submission
== END 2017-02-17 17:20 | disposition home or self-care (01) ==
LOC: EDUNIT# 16:09 → ER 16:10
DX: K08.409 Partial loss of teeth, unspecified cause, unspecified class (principal); G89.18 Other acute postprocedural pain; F17.210 Nicotine dependence, cigarettes, uncomplicated
CPT/HCPCS: 99282

== ENCOUNTER 2017-10-08 08:10 | Emergency (ER) | payer SELFPAY ==
[~2017-10-08] VITALS: Ht 180.3 cm; Wt 81.6 kg
[~2017-10-08 08:10] MED LIST changes: +INHALER; +SLEEPING PILL
--- OUTSIDE RECORDS SUMMARY | 2017-10-08 08:16 | XMS REPORT ---
Author Author JUNE TAMAYO Organization [facility] Address [address] [place] [address] Care Team Providers Care Tool Engineer Name Role Phone BELKISJUNE Unavailable PROBLEMS Type Condition ICD9-CM Code [id number] Code Onset Dates Condition Status SNOMED Code Problem Spasm of muscle 728.85 Active 75713316 Problem Other chronic pain 338.29 Active 37262212 Problem Asthma, unspecified, unspecified status 493.90 Active 84701171 Problem Need for prophylactic vaccination and inoculation, Influenza V04.81 Active 420441975 Problem Polyuria 788.42 Active 26431682 Problem Polydipsia 783.5 Active 34748140 Problem Other malaise and fatigue 780.79 Active 229910441 Problem Adjustment disorder with depressed mood F43.21 Active 11606344 Problem Other chronic pain G89.29 Active 41132844 Problem Adjustment disorder with depressed mood 309.0 Active 45733295 Problem Depressive disorder, not elsewhere classified 311 Active 45437590 Problem 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 Active 686624158 Problem Weakness R53.1 Active 91399036 ALLERGIES No Information SOCIAL HISTORY Never Assessed PLAN OF CARE VITAL SIGNS MEDICATIONS Medication Instructions Dosage Frequency Start Date End Date Duration Status PredniSONE 20 MG Orally Once a day 1 tablet with food or milk 24h Apr, 30 days Active RESULTS No Results PROCEDURES No Known procedures IMMUNIZATIONS No Known Immunizations MEDICAL (GENERAL) HISTORY Type Description Date Medical History asthma Medical History chronic pain Medical History polymyalgia/polyarthralgia Hospitalization History auto immune 2013 Hospitalization History Rhabdomylysis 04/15/16
[2017-10-08] MEDS ORDERED: [UNRECOGNIZED DRUG - REMARK] (08:35)
--- NOTE | 2017-10-08 09:23 | Diagnostic Imaging Report ---
INDICATION: Left rib pain AP and oblique views of the left ribs reveal no fracture or malalignment. There is no evidence of abnormal lytic or sclerotic focus. No pneumothorax or underlying pulmonary contusion is seen. IMPRESSION: No radiographic evidence of displaced left rib fracture. Dictated by: Dictated on workstation # [id number]
[2017-10-08 09:57] VITALS: BP 0/0
--- NOTE | 2017-10-08 10:02 | ED General ---
General Chief Complaint: General Problems/Pain Stated Complaint: BURNING LEFT SIDE,AUTO IMMUNE DISEASE Nursing Triage Note: AMB TO ED C/O PAIN IN L RIB AREA. REPORTS HE HAS A AUTOIMMUNE DISEASE UNSURE WHAT IT CALLEAD THINK IT AFFECTS HIS MUSCLES HAS HAD PAIN AND BURNING IN AREA FOR 3 DAYS SAW BK SNELL AT [facility] YESTERDAY WAS GIVEN A RX UNKONW OF WHAT IS IS Nursing Sepsis Screen: No Definite Risk Source of Information: Patient, Other (clinic staff at [facility]) Exam Limitations: No Limitations Allergies and Home Medications Allergies Coded Allergies: No Known Drug Allergies (Unverified , 06/14/14) Home Medications [Unknow Med Fo Pain] , (Reported) Past Fuartez-Rzqift-Zozlka Hx Patient Social History Alcohol Use: Denies Use Recreational Drug Use: Yes Smoking Status: Current Everyday Smoker Type Used: Cigarettes Former Smoker, Quit: Dec 25, 2015 Recent Foreign Travel: No Contact w/Someone Who Travel: No Recent Infectious Disease Expo: No Recent Hopitalizations: No Immunizations Up To Date Tetanus Booster (TDap): Less than 5yrs Date of Pneumonia Vaccine: Apr 25, 2014 Date of Influenza Vaccine: Jul 25, 2013 Seasonal Allergies Seasonal Allergies: Yes Surgeries History of Surgeries: No (DENTAL SURG) Respiratory History of Respiratory Disorde: Yes Respiratory Disorders: Asthma Cardiovascular History of Cardiac Disorders: No Neurological History of Neurological Disord: Yes (reported muscular disorder but unknown name) Reproductive System Hx Reproductive Disorders: No Sexually Transmitted Disease: No HIV/AIDS: No Gastrointestinal History of Gastrointestinal Di: No Musculoskeletal History of Musculoskeletal Dis: Yes (RARE MUSCLE DISEASE-REPORTS NOT SURE WHAT IT IS, TAKES ORAL STEROIDS DAILY) Endocrine History of Endocrine Disorders: No Cancer History of Cancer: No Psychosocial History of Psychiatric Problem: No Integumentary History of Skin or Integumenta: No Blood Transfusions History of Blood Disorders: No Family Medical History Significant Family History: No Pertinent Family Hx Family Medial History: Patient reports no known family medical history. Physical Exam Vital Signs Vital Sign - Last 12Hours 10/08/17 08:21 Temp 98.8 Pulse 85 Resp 18 B/P (MAP) 129/82 Pulse Ox 98 O2 Delivery Room Air Capillary Refill : Less Than 3 Seconds Progress/Results/Core Measures Results/Orders My Orders Orders - TAMI VICKERS MD Chest Pa/Lat (2 View) (10/08/17 08:58) Ribs, Left 2-3 Views (10/08/17 08:58) Vital Signs/I&O Vital Sign - Last 12Hours 10/08/17 08:21 Temp 98.8 Pulse 85 Resp 18 B/P (MAP) 129/82 Pulse Ox 98 O2 Delivery Room Air Blood Pressure Mean: 98 Progress Note : Time: 09:59 Progress Note Patient was seen and evaluated. With patient's permission I contacted [facility] to obtain a better history. [facility] had no recorded history of any type of neurologic or autoimmune disorder. He was seen in the clinic and started on Neurontin 100 mg 3 times a day for seizure disorder yesterday. No recent labs or imaging had been performed. Patient was found to have tenderness over the left lower anterior and lateral chest wall. Chest x-ray and rib x-rays were performed. No acute abnormalities were seen. Patient walked out of the emergency room before results could be communicated. He did not checkout or talk to staff when he left. Diagnostic Imaging Diagonstic Imaging: Xray Plain Films/CT/US/NM/MRI: chest Comments Chest and rib x-rays viewed by me and report reviewed. See report below: NAME: [facility] REC#: [id number] PT STATUS: REG ER : 1990 PHYSICIAN: TAMI VICKERS MD ADMIT DATE: 10/08/17/ER Draft Date of Exam:10/08/17 RIBS, LEFT 2-3 VIEWS INDICATION: Left rib pain AP and oblique views of the left ribs reveal no fracture or malalignment. There is no evidence of abnormal lytic or sclerotic focus. No pneumothorax or underlying pulmonary contusion is seen. IMPRESSION: No radiographic evidence of displaced left rib fracture. Dictated on workstation # [id number] Dict: 10/08/17920 Trans: 10/08/17922 [facility] [id number] Interpreted by: LAURA BUCHANAN MD Departure Impression Impression: Primary Impression: Chest wall pain Disposition: ADMITTED INPATIENT Condition: Against Medical Advice Departure-Patient Inst. Referrals: [facility] (PCP/Family) Primary Care Physician TAMI VICKERS MD Oct 08, 2017 10:02
== END 2017-10-08 09:57 | disposition left against medical advice (07) ==
LOC: EDUNIT# 08:10 → ER 08:12
DX: R07.89 Other chest pain (principal); J45.909 Unspecified asthma, uncomplicated; F17.210 Nicotine dependence, cigarettes, uncomplicated
CPT/HCPCS: 71020; 71100; 99281

== ENCOUNTER 2018-10-18 08:40 | Emergency (ER) | payer SELFPAY ==
[~2018-10-18] VITALS: Ht 180.3 cm; Wt 68.0 kg
[~2018-10-18 08:40] MED LIST changes: +ACHD5005 PO; -HYDR-3812 PO; +NAPR-1071 PO; -NAPR500T PO; +[UNRECOGNIZED DRUG - REMARK]
--- OUTSIDE RECORDS SUMMARY | 2018-10-18 08:44 | XMS REPORT | Clinical Summary ---
Author Author [facility] Address Unknown Phone Unavailable Care Team Providers Care Supervisor Paste Mixing Name Role Phone Mello Yao MD Unavailable [facility] PP Mello Yao MD Unavailable Allergies No Known Allergies Current Medications Prescription Sig. Disp. Refills Start End Date Status Date hydrocodone-acetaminophen Take 1 tablet by mouth 30 tablet 0 05/11/20 Active (NORCO) 5-325 MG every 6 (six) hours as 14 needed for Pain. ferrous sulfate Take 1 tablet (325 mg 90 tablet 3 05/14/20 Active (ROCHELLE-IN-JAISON) 325 (65 FE) total) by mouth 3 (three) 14 MG tabletIndications: times daily with meals. Iron Deficiency Anemia Indications: Anemia From Inadequate Iron in the Body senna-docusate Take 1 tablet by mouth 30 tablet 6 05/14/20 Active (PERICOLACE) 8.6-50 MG nightly. 14 predniSONE (DELTASONE) 5 Take by mouth daily. Active MG tablet Tim taper currently at 35 mg Active Problems Problem Noted Date Myopathy 05/30/2014 Myalgia 05/30/2014 Iron deficiency anemia due to dietary causes 05/14/2014 Weakness of both legs 05/13/2014 Acute viral syndrome 05/13/2014 Leg weakness, bilateral 05/13/2014 Ascending paralysis (HCC) 05/13/2014 Immunizations Name Dates Previously Given Next Due Tdap 02/19/2014 Family History * Patient is adopted Medical History Relation Name Comments Asthma Father Other Father gout Other Maternal polio Grandfather Stroke Maternal Uncle Diabetes Paternal Grandmother Hypertension Paternal Grandmother Stroke Paternal Grandmother Diabetes Paternal Uncle Hypertension Paternal Uncle Stroke Paternal Uncle Relation Name Status Comments Father Alive Maternal Grandfather Maternal Uncle Mother Alive Paternal Grandmother Paternal Uncle Social History Tobacco Use Types Packs/Day Years Used Date Former Smoker 0.25 4 Quit: 03/24/2014 Smokeless Tobacco: Never Used Alcohol Use Drinks/Week oz/Week Comments No 0.0 socially Sex Assigned at Date Recorded Not on file Last Filed Vital Signs Vital Sign Reading Time Taken Blood Pressure 132/80 05/30/2014 1:44 PM CDT Pulse 96 05/20/2014 10:32 AM CDT Temperature 36.3 C (97.3 F) 05/20/2014 10:32 AM CDT Respiratory Rate 20 05/14/2014 9:11 AM CDT Oxygen Saturation 100% 05/14/2014 9:11 AM CDT Inhaled Oxygen - - Concentration Weight 68.5 kg (151 lb) 05/30/2014 1:44 PM CDT Height 180.3 cm (5' 11") 05/30/2014 1:44 PM CDT Body Mass Index 21.06 05/30/2014 1:44 PM CDT Plan of Treatment Health Maintenance Due Date Last Done Comments Varicella Vaccines (1 of 2003 2 - 2-dose adolescent series) Influenza Vaccine (#1) 2018 DTaP,Tdap,and Td Vaccines 02/20/2024 02/19/2014 (2 - Td) Results Not on filefrom Last 3 Months
[2018-10-18] MEDS ORDERED: RT-ALBUTEROL/IPRATROPIUM 3 ML (DUONEB) VIAL INH ONE (08:45)
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
--- OUTSIDE RECORDS SUMMARY | 2018-10-18 08:45 | XMS REPORT ---
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 Active 297286485 Problem Weakness R53.1 Active [id number] ALLERGIES No Information ENCOUNTERS Encounter Location Date Diagnosis [place] [id number] [place] [address]16- 5248 17 Jul, 2018 [place] [id number] [place] [address] 59817- 2603 Jul, [facility] [id number] [place] [address] 07769- 1490 11 Jul, 2018 [facility] [address] [address]- [address]45 Jul, [place] [id number] [place] [address] 69850- 4979 Jun, [facility] [address] [address]- 9160 Apr, Back pain, lumbosacral M54.5 and Weight loss R63.4 [facility] [address] 6[address]15- 3116 Jan, [facility] [id number] [place] [address] 71227- 8509 Sep, Adjustment disorder with depressed mood F43.21 [place] [address] [address] 2546 Sep, Seizures R56.9 [facility] [id number] [place] [address] 40930 2546 Sep, [facility] [id number] [place] [id number] 2546 Jul, Adjustment disorder with depressed mood F43.21 and Other chronic pain G89.29 [facility] [address] [address] 2546 Jun, Non-traumatic rhabdomyolysis M62.82 [facility] [id number] [place] [address] 56999 2546 Apr, [facility] [address] [address] 2546 Apr, Weakness R53.1 [facility] [address] [address] 2546 March, Weakness R53.1 [facility] [id number] [place] [address] 34693 2546 March, [facility] [id number] [place] [address] 92012 2546 March, Weakness R53.1 [facility] [id number] [place] [address] 80382 2546 Feb, [facility] [id number] [place] [address] 43710 2546 Feb, Weakness R53.1 [facility] [id number] [place] [address] 18169 2546 Feb, Weakness R53.1 [facility] [id number] [place] [id number] Jan, Dental caries K02.9 [facility] [id number] [place] [address] [id number] Jan, Dental examination Z01.20 [facility] [address] [facility] [id number] [place] [address]- 2076 Dec, [facility] [id number] [place] [address] 5151 Dec, [facility] [id number] [place] [address] 6108 Nov, [facility] [id number] [place] [address], [place] [address]- 5849 Nov, [facility] [address] [facility] [id number] [place] [address], [place] [address]- 2328 Nov, [facility] [id number] [place] [address], [place] [address]- 5641 Nov, [facility] [id number] [place] [address]- 1068 Nov, Weakness R53.1 and 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 [facility] [id number] [place] [address]- 1251 Nov, [facility] [id number] [place] [address], [place] [address]- 6958 Oct, [facility] [id number] [address] 1366 Jul, [facility] [id number] [address] 8701 May, [facility] [address] [address] 2540 Apr, [facility] [id number] [place] [address] 37958- 3930 March, Seizures R56.9 and Neuropathy G62.9 [facility] [address] [address] 2828 March, [facility] [id number] [place] [address] 20252- 2141 March, [facility] [id number] [place] [address] 80340- 4087 March, Polyarthralgia M25.50 [facility] [id number] [place] [address] 68919- 4326 Jan, Muscle cramp R25.2 [facility] [id number] [place] [address] 66225- 3328 Jan, [facility] [id number] [place] [address] 18279- 9429 Dec, [facility] [id number] [place] [address] 08911- 8351 Oct, Muscle cramp R25.2 [facility] [id number] [place] [address] 34982- 5527 Oct, [facility] [id number] [place] [address] 70022- 7487 Jul, [facility] [id number] [place] [address] 55096- 4902 Jun, [facility] [id number] [place] [address] 67650- 9266 Jun, [facility] [id number] [place] [address] 85605- 2248 May, Muscle cramp 729.82 [facility] [id number] [place] [address] 51734180- 0230 May, Anxiety state, unspecified 300.00 [facility] [id number] [place] [address] 289140- 6788 Apr, [facility] [id number] [place] [address] 25724- 4988 Apr, Anxiety state 300.00 ; Cognitive decline 294.9 and [place] diagnosis deferred 799.9 [facility] [id number] [place] [address] 54875- 3939 March, [facility] [id number] [place] [address] 80110- 8511 March, [facility] [id number] [place] [address] 33259- 7955 March, Neuropathy 355.9 and Cognitive disorder 294.9 [facility] [id number] [place] [address] 99843- 8183 March, Neuropathy 355.9 and Cognitive disorder 294.9 [facility] [id number] [place] [address] 97292- 1533 March, Spasm of muscle 728.85 ; Memory loss 780.93 and Tremor of both hands 781.0 [facility] [id number] [place] [address] 55980- 0683 March, [facility] [id number] [place] [address] 29097- 9729 Feb, [facility] [id number] [place] [address] 44482- 4988 Feb, [facility] [id number] [place] [address] 05913- 1694 Dec, [facility] [id number] [place] [address] 07127- 6678 Dec, [facility] [id number] [place] [address] 02315- 4367 Dec, [facility] [id number] [place] [address] 864719- 1765 Dec, [facility] [id number] [place] [address] [id number]- 2766 Nov, [facility] [id number] [place] [address] 79896- 7017 Nov, [facility] [id number] [place] [address] 52258- 7976 Nov, [facility] [place] [facility] [address] [id number] [place] [address]- 9695 Nov, [facility] [place] [facility] [address] [id number] [place] [address]- 0740 Nov, [facility] [place] [facility] [address] [id number] [place] [address]- 2188 Nov, [facility] [place] [facility] [address] [id number] [place] 8144 Oct, [facility] [place] [facility] [address] [id number] [place] [address]- 7347 Oct, [facility] [place] [facility] [address] [id number] [place] [address]- 2217 Sep, [facility] [place] [facility] [address] [id number] [place] [address]- 9109 Sep, [facility] [place] [facility] [address] [id number] [place] [address]- 6549 Sep, [facility] [place] [facility] [address] [id number] [place] [address]- 5470 Sep, [facility] [place] [facility] [address] [id number] [place] [address]- 3871 Aug, [facility] [place] [facility] [address] [id number], [place] [address]- 8649 Aug, [facility] [place] [facility] [address] [id number], [place] [address]- 1744 Aug, [facility] [place] [facility] [address] [id number] [place] [address]- 1825 Aug, [facility] [place] [facility] [address] [id number], [place] [address]- 3859 Aug, [facility] [place] [facility] [address] [id number], [place] [address]- 8175 Aug, [facility] [place] [facility] [address] [id number] [place] [address]- 4587 Aug, [facility] [place] [facility] [address] [id number] [place] [address]- 7511 Aug, [facility] [place] [facility] [address] [id number] [place] [address]- 3893 Aug, [facility] [place] [facility] [address] [id number] [place] [address]- 2502 Aug, [facility] [place] [facility] [address] [id number] [place] [address]- 3643 Aug, [facility] [place] [facility] [address] [id number] [place] [address]- 6293 Aug, [facility] [place] [facility] [address] [id number] [place] [address]- 8409 Aug, [facility] [place] [facility] [address] [id number] [place] [address]- 8687 Jul, [facility] [place] [facility] [address] [id number] [place] [address]- 7471 Jul, [facility] [place] [facility] [address] [id number] [place] [address]- 1455 Jul, [facility] [place] [facility] [address] [id number] [place] [address]- 1214 Jul, [facility] [place] [facility] [address] [id number] [place] [address]- 3126 Jul, [facility] [place] [facility] [address] [id number] [place] [address]- 3048 Jun, [facility] [place] [facility] [address] [id number] [place] [address]- 9434 Jun, [facility] [place] [facility] [address] [id number] [place] [address]- 8285 Jun, [facility] [place] [facility] [address] [id number] [place] [address]- 1202 Jun, [facility] [address] [facility] [id number], [place] [address]- 0469 Jun, [facility] [id number] [address]- 0134 Jun, [facility] [id number] [address]- 9256 May, [facility] [address] 3837 May, [facility] [id number] [address]- 4566 May, [facility] [address] [id number] [address]- 1136 May, [facility] [id number] [address]- 7200 May, IMMUNIZATIONS No Known Immunizations SOCIAL HISTORY Never Assessed REASON FOR VISIT FYI PLAN OF CARE VITAL SIGNS MEDICATIONS Unknown Medications RESULTS No Results PROCEDURES No Known procedures INSTRUCTIONS MEDICATIONS ADMINISTERED No Known Medications MEDICAL (GENERAL) HISTORY Type Description Date Medical History asthma Medical History chronic pain Medical History polymyalgia/polyarthralgia Hospitalization History auto immune 2012 Hospitalization History Rhabdomylysis 04/15/16
--- OUTSIDE RECORDS SUMMARY | 2018-10-18 08:46 | XMS REPORT ---
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 Active 251514926 Problem Weakness R53.1 Active 30794878 ALLERGIES No Information ENCOUNTERS Encounter Location Date Diagnosis [place] [id number] [place] [address] 98073- 7166 Apr, Back pain, lumbosacral M54.5 and Weight loss R63.4 [place] [id number] [place] [address] 19139- 5496 Jan, [place] [id number] [place] [address] 54112- 1099 Sep, Adjustment disorder with depressed mood F43.21 [place] [id number] [place] [address] 89686- 8247 Sep, Seizures R56.9 [place] [id number] [place] [address] 69492- 5794 Sep, [place] [id number] [place] [address] 93428- 0496 Jul, Adjustment disorder with depressed mood F43.21 and Other chronic pain G89.29 [place] [id number] [place] [address] 75527- 3757 14 Jun, 2017 Non-traumatic rhabdomyolysis M62.82 [place] [id number] [place] [address] 84385- 1596 Apr, [facility] [id number] [place] [address] 23945- 9816 Apr, Weakness R53.1 [facility] [address] [facility] [id number] [place] [address] 93071 2546 March, Weakness R53.1 [facility] [id number] [place] [address] 05629- 8676 March, [facility] [id number] [place] [address] 89909 2546 March, Weakness R53.1 [facility] [id number] [place] [address] 54372- 5496 Feb, [facility] [id number] [place] [address] 22216- 9616 Feb, Weakness R53.1 [facility] [id number] [place] [address] 72699- 6746 Feb, Weakness R53.1 [facility] [id number] [place] [address] [id number] Jan, Dental caries K02.9 [facility] [id number] [place] [address] [id number] Jan, Dental examination Z01.20 [facility] [id number] [place] [address] 43126- 8336 Dec, [facility] [id number] [place] [address] 64793- 0646 Dec, [facility] [id number] [place] [address] 06241- 4786 Nov, [facility] [id number] [place] [address] 39473- 8576 Nov, [facility] [id number] [place] [address] 41503- 4946 Nov, [facility] [address] [address]- 7599 Nov, [facility] [id number] [place] [address] 70349- 1661 Nov, Weakness R53.1 and 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 [facility] [id number] [place] [address] 57458- 0307 Nov, [facility] [id number] [place] [address] 40886- 7800 Oct, [facility] [id number] [place] [address] 36621- 0364 Jul, [facility] [id number] [place] [address] 75418- 6275 May, [facility] [id number] [place] [address] 43777- 6386 Apr, [facility] [id number] [place] [address] 76282- 5934 March, Seizures R56.9 and Neuropathy G62.9 [facility] [id number] [place] [address] 84362- 9595 March, [facility] [address] [address]- 5165 March, [facility] [id number] [place] [address] 40155- 0698 March, Polyarthralgia M25.50 [facility] [id number] [address]- 3172 Jan, Muscle cramp R25.2 [facility] [id number] [address]- 5202 Jan, [facility] [address] [address]- 2676 Dec, [facility] [address] [address]- 7317 Oct, Muscle cramp R25.2 [facility] [id number] [place] [address] 28712- 3006 Oct, [facility] [id number] [place] [address] 21558- 4681 Jul, [facility] [id number] [place] [address] 475533- 1838 Jun, [facility] [id number] [place] [address] 384366- 7459 Jun, [facility] [id number] [place] [address] 329179- 5561 May, Muscle cramp 729.82 [facility] [id number] [place] [address] 21749- 7761 May, Anxiety state, unspecified 300.00 [facility] [id number] [place] [address] 24885- 5504 Apr, [facility] [id number] [place] [address] 539481- 6556 Apr, Anxiety state 300.00 ; Cognitive decline 294.9 and [place] II diagnosis deferred 799.9 [facility] [address], [place] [address]- 1846 March, [facility] [id number] [place] [address] 801572- 0529 March, [facility] [id number] [place] [address] 36995- 0234 March, Neuropathy 355.9 and Cognitive disorder 294.9 [facility] [id number] [place] [address] 363407- 6316 March, Neuropathy 355.9 and Cognitive disorder 294.9 [facility] [id number] [place] [address] 72789- 2119 March, Spasm of muscle 728.85 ; Memory loss 780.93 and Tremor of both hands 781.0 [facility] [id number] [place] [address] 90542- 3655 March, [facility] [id number] [place] [address] 57773- 7042 Feb, [facility] [id number] [place] [address] 45327- 7147 Feb, [facility] [id number] [place] [address] 47887- 7789 Dec, [facility] [id number] [place] [address] 85777- 2916 Dec, [facility] [id number] [place] [address] 911419- 0283 Dec, [facility] [id number] [place] [address] 70785- 7967 Dec, [facility] [id number] [place] [address] 86897- 9738 Nov, [facility] [id number] [place] [address] 28236- 6240 Nov, [facility] [address] [address]- 9310 Nov, [facility] [id number] [place] [address] 70107- 2701 Nov, [facility] [address] 7301 Nov, [facility] [id number] [place] [address] 14504- 7078 Nov, [facility] [address], [place] [address]- 9224 Oct, [facility] [id number] [place] [address] 14883- 3986 Oct, [facility] [place] [facility] [address] [id number] [place] 9485 Sep, [facility] [place] [facility] [address] [id number] [place] [address]- 0860 Sep, [facility] [place] [facility] [address] [id number] [place] [address]- 7014 Sep, [facility] [place] [facility] [address] [id number] [place] [address]- 6474 Sep, [facility] [place] [facility] [address] [id number] [place] [address]- 4662 Aug, [facility] [place] [facility] [address] [id number] [place] [address]- 5103 Aug, [facility] [place] [facility] [address] [id number] [place] [address]- 2947 Aug, [facility] [place] [facility] [address] [id number], [place] [address]- 5032 Aug, [facility] [place] [facility] [address] [id number], [place] [address]- 6029 Aug, [facility] [place] [facility] [address] [id number], [place] [address]- 0665 Aug, [facility] [place] [facility] [address] [id number], [place] [address]- 0554 Aug, [facility] [place] [facility] [address] [id number], [place] [address]- 3018 Aug, [facility] [place] [facility] [address] [id number], [place] [address]- 4369 Aug, [facility] [place] [facility] [address] [id number], [place] [address]- 3506 Aug, [facility] [place] [facility] [address] [id number], [place] [address]- 8329 Aug, [facility] [place] [facility] [address] [id number] [place] [address]- 7343 Aug, [facility] [place] [facility] [address] [id number] [place] [address]- 4033 Aug, [facility] [place] [facility] [address] [id number] [place] [address]- 5731 Jul, [facility] [place] [facility] [address] [id number] [place] [address]- 0281 Jul, [facility] [place] [facility] [address] [id number] [place] [address]- 7222 Jul, [facility] [place] [facility] [address] [id number] [place] [address]- 0155 Jul, [facility] [place] [facility] [address] [id number] [place] [address]- 5193 Jul, [facility] [place] [facility] [address] [id number] [place] [address]- 4195 Jun, [facility] [place] [facility] [address] [id number] [place] [address]- 9032 Jun, [facility] [place] [facility] [address] [id number] [place] [address]- 1441 Jun, [facility] [place] [facility] [address] [id number] [place] [address]- 0928 Jun, [facility] [place] [facility] [address] [id number] [place] [address]- 1441 Jun, [facility] [place] [facility] [address] [id number] [place] [address]- 0189 Jun, [facility] [place] [facility] [address] [id number] [place] [address]- 0793 May, [facility] [place] [facility] [address] [id number] [place] [address]- 0843 May, [facility] [place] [facility] [address] [id number] [place] [address]- 9246 May, [facility] [address] [facility] [id number] [place] [address]327 May, [facility] [address] [facility] [id number] [place] 7602 May, IMMUNIZATIONS No Known Immunizations SOCIAL HISTORY Never Assessed REASON FOR VISIT Medication refill request PLAN OF CARE VITAL SIGNS MEDICATIONS Medication Instructions Dosage Frequency Start Date End Date Duration Status PredniSONE 10 mg Orally Once a day 1 1/2 tablets 24h Apr, 30 days Active RESULTS No Results PROCEDURES No Known procedures INSTRUCTIONS MEDICATIONS ADMINISTERED No Known Medications MEDICAL (GENERAL) HISTORY Type Description Date Medical History asthma Medical History chronic pain Medical History polymyalgia/polyarthralgia Hospitalization History auto immune 2012 Hospitalization History Rhabdomylysis 04/15/16
--- OUTSIDE RECORDS SUMMARY | 2018-10-18 08:46 | XMS REPORT ---
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 Active 121856441 Problem Weakness R53.1 Active 89503474 ALLERGIES No Known Allergies ENCOUNTERS Encounter Location Date Diagnosis [facility] [id number] [place] [address] 35805- 9780 Jun, [facility] [id number] [place] [address] 35444- 6392 Jun, [facility] [address] [address] Apr, Back pain, lumbosacral M54.5 and Weight loss R63.4 [facility] [id number] [place] [address] 49363- 1614 Jan, [facility] [id number] [place] [address] 30223- 0455 Sep, Adjustment disorder with depressed mood F43.21 [facility] [id number] [place] [address] 00097- 7250 Sep, Seizures R56.9 [facility] [address] [address]- 4559 Sep, [facility] [id number] [place] [address] 05211- 6157 Jul, Adjustment disorder with depressed mood F43.21 and Other chronic pain G89.29 [facility] [place] [id number] [place] [address] [id number] 2546 Jun, Non-traumatic rhabdomyolysis M62.82 [facility] [place] [id number] [place] [address] 67022 2546 Apr, [facility] [place] [id number] [place] [address] 98887 2546 Apr, Weakness R53.1 [facility] [place] [id number] [place] [address] 37568- 2546 March, Weakness R53.1 [facility] [place] [id number] [place] [address] 35838 2546 March, [facility] [place] [id number] [place] [address] 74922 2546 March, Weakness R53.1 [facility] [place] [id number] [place] [address] [id number] 2546 Feb, [facility] [place] [id number] [place] [address] 36593 2546 Feb, Weakness R53.1 [facility] [place] [id number] [place] [address] 57149 2546 Feb, [address] [facility] [id number] [place] [address] [id number] Jan, Dental caries K02.9 [facility] [id number] [place] [address] [id number] Jan, Dental examination Z01.20 [facility] [place] [id number] [place] [address] 32354- 4346 Dec, [facility] [place] [id number] [place] [address] 59938 2546 Dec, [facility] [place] [id number] [place] [address] 88232- 5926 Nov, [facility] [place] [address] [address]- 9305 Nov, [facility] [place] [id number] [place] [address], [place] [address]- 8361 Nov, [facility] [place] [id number] [place] [address] 40559- 6348 Nov, [facility] [place] [id number] [place] [address] 18694- 2118 Nov, Weakness R53.1 and 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 [facility] [place] [id number] [place] [address], [place] [address]- 2544 Nov, [facility] [place] [id number] [place] [address], [place] [address]- 7499 Oct, [facility] [place] [id number] [place] [address] 56603- 9444 Jul, [facility] [place] [id number] [place] [address] 67985- 2768 May, [facility] [place] [id number] [place] [address] 50699- 8426 Apr, [facility] [place] [id number] [place] [address] 65599- 2321 March, Seizures R56.9 and Neuropathy G62.9 [facility] [place] [id number] [place] [address] 63222- 9882 March, [facility] [place] [address] [address]- 0028 March, [facility] [place] [id number] [place] [address] 82196- 1205 March, Polyarthralgia M25.50 [facility] [place] [id number] [place] [address]- 3819 Jan, Muscle cramp R25.2 [facility] [place] [address] [address]- 0891 Jan, [facility] [place] [id number] [place] [address] 77012- 5403 Dec, [facility] [place] [address] [address]- 3262 Oct, Muscle cramp R25.2 [facility] [place] [id number] [place] [address] 93697- 7737 Oct, [facility] [place] [id number] [place] [address] 30544- 8159 Jul, [facility] [place] [id number] [place] [address] 35221- 8856 Jun, [facility] [place] [id number] [place] [address] 11848- 7087 Jun, [facility] [place] [id number] [place] [address] 11345- 5482 May, Muscle cramp 729.82 [facility] [place] [id number] [place] [address] 46273- 8778 May, Anxiety state, unspecified 300.00 [facility] [place] [address] [address]- 7704 Apr, [facility] [place] [id number] [place] [address] 78475- 2527 Apr, Anxiety state 300.00 ; Cognitive decline 294.9 and [place] II diagnosis deferred 799.9 [facility] [place] [address] [address]- 5824 March, [facility] [place] [id number] [place] [address] 07616- 7523 March, [facility] [place] [address] [address]- 0307 March, Neuropathy 355.9 and Cognitive disorder 294.9 [facility] [place] [id number] [place] [address] 62206- 0741 March, Neuropathy 355.9 and Cognitive disorder 294.9 [facility] [place] [id number] [place] [address] 76903- 7549 March, Spasm of muscle 728.85 ; Memory loss 780.93 and Tremor of both hands 781.0 [facility] [place] [id number] [place] [address] 54459- 3106 March, [facility] [place] [id number] [place] [address] 75823- 3180 Feb, [facility] [place] [id number] [place] [address] 37996- 6983 Feb, [facility] [place] [id number] [place] [address] 24379- 8133 Dec, [facility] [place] [id number] [place] [address] 54891- 1075 Dec, [facility] [place] [id number] [place] [address] 67954- 5015 Dec, [facility] [place] [id number] [place] [address] 79421- 4132 Dec, [facility] [place] [id number] [place] [address] 01412- 2838 Nov, [facility] [place] [id number] [place] [address] 15533- 5852 Nov, [facility] [place] [address] [place] [address] 46816- 4192 Nov, [facility] [place] [id number] [place] [address] 95093- 1748 Nov, [facility] [place] [id number] [place] [address] 42123- 9971 Nov, [facility] [place] [id number] [place] [address] 99226- 4675 Nov, [facility] [place] [facility] [address] [id number] [place] 6009 Oct, [facility] [place] [facility] [address] [id number] [place] [address]- 5982 Oct, [facility] [place] [facility] [address] [id number] [place] 7612 Sep, [facility] [place] [facility] [address] [id number] [place] [address]- 6559 Sep, [facility] [place] [facility] [address] [id number] [place] 2943 Sep, [facility] [place] [facility] [address] [id number] [place] [address]- 4306 Sep, [facility] [place] [facility] [address] [id number] [place] [address]- 6226 Aug, [facility] [place] [facility] [address] [id number] [place] [address]- 7189 Aug, [facility] [place] [facility] [address] [id number] [place] [address]- 6985 Aug, [facility] [place] [facility] [address] [id number] [place] [address]- 1779 Aug, [facility] [place] [facility] [address] [id number] [address]- 4598 Aug, [facility] [place] [facility] [address] [id number] [place] [address]- 6117 Aug, [facility] [place] [facility] [address] [id number] [place] 0760 Aug, [facility] [place] [facility] [address] [id number] [place] [address]- 8081 Aug, [facility] [place] [facility] [address] [id number] [place] [address]- 8236 Aug, [facility] [place] [facility] [address] [id number] [place] [address]- 8071 Aug, [facility] [place] [facility] [address] [id number] [place] [address]- 4684 Aug, [facility] [place] [facility] [address] [id number] [place] [address]- 3261 Aug, [facility] [place] [facility] [address] [id number] [place] [address]- 7280 Aug, [facility] [place] [facility] [address] [id number] [place] [address]- 5989 Jul, [facility] [place] [facility] [address] [id number] [place] [address]- 0028 Jul, [facility] [place] [facility] [address] [id number] [place] [address]- 6513 Jul, [facility] [place] [facility] [address] [id number] [place] [address]- 5746 Jul, [facility] [place] [facility] [address] [id number] [place] [address]- 0137 Jul, [facility] [place] [facility] [address] [id number] [place] [address]- 9883 Jun, [facility] [place] [facility] [address] [id number] [place] [address]- 1093 Jun, [facility] [place] [facility] [address] [id number] [place] [address]- 4722 Jun, [facility] [place] [facility] [address] [id number] [place] [address]- 9954 Jun, [facility] [place] [facility] [address] [id number] [place] [address]- 3167 Jun, [facility] [place] [facility] [address] [id number] [place] [address]- 0903 Jun, [facility] [place] [facility] [address] [id number] [place] [address]- 8939 May, [facility] [place] [address] [facility] [id number] 0933 May, [facility] [place] [address] [facility] [id number] [place] 9996 May, [facility] [place] [address] [facility] [id number] [place] [address]- 1969 May, [facility] [place] [address] [facility] [id number] [place] [id number]- 1631 May, IMMUNIZATIONS No Known Immunizations SOCIAL HISTORY Never Assessed REASON FOR VISIT body aches WB-MA, Lower back pain PLAN OF CARE VITAL SIGNS Height 72 in 2018-04-29 Weight 140 lbs 2018-04-29 Temperature 99 degrees Fahrenheit 2018-04-29 Heart Rate 68 bpm 2018-04-29 Respiratory Rate 20 2018-04-29 BMI 18.99 kg/m2 2018-04-29 Blood pressure systolic 118 mmHg 2018-04-29 Blood pressure diastolic 78 mmHg 2018-04-29 MEDICATIONS Medication Instructions Dosage Frequency Start Date End Date Duration Status Doxepin HCl 25 MG Orally Once a day 1 capsule at bedtime 24h Nov, 30 day(s) Not-Taking Tramadol HCl 50 mg Orally 2 times a day 1 tablet as needed 12h March, Not-Taking PredniSONE 10 mg Orally Once a day 1 tablet 24h Apr, Oct, 30 days Active Viagra 100 mg Orally Once a day 1 tablet as needed 24h Nov, 30 days Active ProAir HFA 90 mcg/actuation 2 puffs by Inhalation route 4 times per day 6h May, Active HydrOXYzine HCl 25 MG Orally every 8 hrs as needed 1 tablet as needed Jul, 30 day(s) Active Geraldine 5-325 MG Orally 4 times a day 1 tablet as needed 6h Apr, Active Neurontin 100 mg Orally Three times a day 1 capsule 8h 13 Sep, 2017 30 day(s) Not-Taking RESULTS No Results PROCEDURES No Known procedures INSTRUCTIONS MEDICATIONS ADMINISTERED No Known Medications MEDICAL (GENERAL) HISTORY Type Description Date Medical History asthma Medical History chronic pain Medical History polymyalgia/polyarthralgia Hospitalization History auto immune 2012 Hospitalization History Rhabdomylysis 04/15/16
--- OUTSIDE RECORDS SUMMARY | 2018-10-18 08:46 | XMS REPORT ---
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 Active 555795955 Problem Weakness R53.1 Active 61005446 ALLERGIES No Information ENCOUNTERS Encounter Location Date Diagnosis [facility] [id number] [place] [address] [id number]- 5503 17 Jul, 2018 [facility] [id number] [place] [address] 08906- 7569 Jul, [facility] [id number] [place] [address] 09171- 9385 Jul, [facility] [address] 8[address]12- 7176 Jul, [place] [id number] [place] [address] 41932- 7496 Jun, [facility] [address] 17574- 3961 Apr, Back pain, lumbosacral M54.5 and Weight loss R63.4 [facility] [address] 02557- 7152 Jan, [facility] [id number] [place] [address] 97728- 7025 Sep, Adjustment disorder with depressed mood F43.21 [facility] [address] 39843 2546 Sep, Seizures R56.9 [facility] [id number] [place] [address] 85639 2546 Sep, [facility] [id number] [place] [id number] 2546 Jul, Adjustment disorder with depressed mood F43.21 and Other chronic pain G89.29 [facility] [address] 16577 2546 Jun, Non-traumatic rhabdomyolysis M62.82 [facility] [id number] [place] [address] 78301 2546 Apr, [facility] [address] 65148 2546 Apr, Weakness R53.1 [facility] [address] 11363 2546 March, Weakness R53.1 [facility] [id number] [place] [address] 81821 2546 March, [facility] [id number] [place] [address] 27262 2546 March, Weakness R53.1 [facility] [id number] [place] [address] 05162 2546 Feb, [facility] [id number] [place] [address] 59062 2546 Feb, Weakness R53.1 [facility] [id number] [place] [address] 75792 2546 Feb, Weakness R53.1 [facility] [id number] [place] [address] [id number] Jan, Dental caries K02.9 [facility] [id number] [place] [address] [id number] Jan, Dental examination Z01.20 [facility] [address] [facility] [id number] [place] [address]- 5426 Dec, [facility] [id number] [place] [address]- 7271 Dec, [facility] [id number] [place] [address]- 6264 Nov, [facility] [id number] [place] [address], [place] [address]- 9027 Nov, [facility] [address] [facility] [id number] [place] [address], [place] [address]- 6851 Nov, [facility] [id number] [place] [address], [place] [address]- 9941 Nov, [facility] [id number] [place] [address]- 8490 Nov, Weakness R53.1 and 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 [facility] [id number] [place] [address]- 7802 Nov, [facility] [id number] [place] [address], [place] [address]- 1864 Oct, [facility] [address], [place] [address] 6114 Jul, [facility] [address], [place] [address]- 5262 May, [facility] [address], [place] [address] 2547 Apr, [facility] [id number] [place] [address] 46396- 5846 March, Seizures R56.9 and Neuropathy G62.9 [facility] [address] [address]- 4838 March, [facility] [id number] [place] [address] 70701- 9286 March, [facility] [id number] [place] [address] 11761- 2526 March, Polyarthralgia M25.50 [facility] [id number] [place] [address] 77512- 3536 Jan, Muscle cramp R25.2 [facility] [id number] [place] [address] 15078- 2247 Jan, [facility] [id number] [place] [address] 90205- 7074 Dec, [facility] [id number] [place] [address] 34086- 1842 Oct, Muscle cramp R25.2 [facility] [id number] [place] [address] 54527- 1091 Oct, [facility] [id number] [place] [address] 57057- 3377 Jul, [facility] [id number] [place] [address] 43587- 0882 Jun, [facility] [id number] [place] [address] 57065- 8055 Jun, [facility] [id number] [place] [address] 74807- 1669 May, Muscle cramp 729.82 [facility] [id number] [place] [address] [id number] 5109 May, Anxiety state, unspecified 300.00 [facility] [id number] [place] [address] [id number]- 2863 Apr, [facility] [id number] [place] [address] 60197- 1288 Apr, Anxiety state 300.00 ; Cognitive decline 294.9 and [place] diagnosis deferred 799.9 [facility] [id number] [place] [address] 31486- 1791 March, [facility] [id number] [place] [address] 75919- 1791 March, [facility] [id number] [place] [address] 11070- 3805 March, Neuropathy 355.9 and Cognitive disorder 294.9 [facility] [id number] [place] [address] 50404- 2868 March, Neuropathy 355.9 and Cognitive disorder 294.9 [facility] [id number] [place] [address] 87475- 2856 March, Spasm of muscle 728.85 ; Memory loss 780.93 and Tremor of both hands 781.0 [facility] [id number] [place] [address] 52908- 0711 March, [facility] [id number] [place] [address] 08967- 3298 Feb, [facility] [id number] [place] [address] 75130- 3222 Feb, [facility] [id number] [place] [address] 26393- 3918 Dec, [facility] [id number] [place] [address] 62006- 6440 Dec, [facility] [id number] [place] [address] 51251- 9225 Dec, [facility] [id number] [place] [address] [id number]- 5232 Dec, [facility] [id number] [place] [address] [id number] 0932 Nov, [facility] [id number] [place] [address] 92668- 3341 Nov, [facility] [id number] [place] [address] 50311- 2946 Nov, [facility] [place] [facility] [address] [id number] [place] [address]- 2149 Nov, [facility] [place] [facility] [address] [id number] [place] [address]- 8187 Nov, [facility] [place] [facility] [address] [id number] [place] [address]- 2766 Nov, [facility] [place] [facility] [address] [id number] [place] 3611 Oct, [facility] [place] [facility] [address] [id number] [place] [address]- 8007 Oct, [facility] [place] [facility] [address] [id number] [place] [address]- 8804 Sep, [facility] [place] [facility] [address] [id number] [place] [address]- 7962 Sep, [facility] [place] [facility] [address] [id number] [place] [address]- 9233 Sep, [facility] [place] [facility] [address] [id number] [place] [address]- 9154 Sep, [facility] [place] [facility] [address] [id number] [place] [address]- 1389 Aug, [facility] [place] [facility] [address] [id number], [place] [address]- 6963 Aug, [facility] [place] [facility] [address] [id number], [place] [address]- 2201 Aug, [facility] [place] [facility] [address] [id number] [place] [address]- 2084 Aug, [facility] [place] [facility] [address] [id number], [place] [address]- 6336 Aug, [facility] [place] [facility] [address] [id number], [place] [address]- 7074 Aug, [facility] [place] [facility] [address] [id number] [place] [address]- 8059 Aug, [facility] [place] [facility] [address] [id number] [place] [address]- 5742 Aug, [facility] [place] [facility] [address] [id number] [place] [address]- 5322 Aug, [facility] [place] [facility] [address] [id number] [place] [address]- 5269 Aug, [facility] [place] [facility] [address] [id number] [place] [address]- 6277 Aug, [facility] [place] [facility] [address] [id number] [place] [address]- 4374 Aug, [facility] [place] [facility] [address] [id number] [place] [address]- 3767 Aug, [facility] [place] [facility] [address] [id number] [place] [address]- 6828 Jul, [facility] [place] [facility] [address] [id number] [place] [address]- 0989 Jul, [facility] [place] [facility] [address] [id number] [place] [address]- 9403 Jul, [facility] [place] [facility] [address] [id number] [place] [address]- 5649 Jul, [facility] [place] [facility] [address] [id number] [place] [address]- 5510 Jul, [facility] [place] [facility] [address] [id number] [place] [address]- 6798 Jun, [facility] [place] [facility] [address] [id number] [place] [address]- 7760 Jun, [facility] [place] [facility] [address] [id number] [place] [address]- 8561 Jun, [facility] [place] [facility] [address] [id number] [place] [address]- 8581 Jun, [facility] [address] [facility] [id number] 8078 Jun, [facility] [id number], [place] [address]- 2944 Jun, [facility] [id number], [place] [address]- 0820 May, [facility] [address] 7622 May, [facility] [id number], [place] [address]- 1675 May, [facility] [id number], [place] [address]- 8060 May, [facility] [id number], [place] [address]- 6621 May, IMMUNIZATIONS No Known Immunizations SOCIAL HISTORY Never Assessed REASON FOR VISIT PLAN OF CARE VITAL SIGNS MEDICATIONS Unknown Medications RESULTS No Results PROCEDURES No Known procedures INSTRUCTIONS MEDICATIONS ADMINISTERED No Known Medications MEDICAL (GENERAL) HISTORY Type Description Date Medical History asthma Medical History chronic pain Medical History polymyalgia/polyarthralgia Hospitalization History auto immune 2012 Hospitalization History Rhabdomylysis 04/15/16
--- OUTSIDE RECORDS SUMMARY | 2018-10-18 08:47 | XMS REPORT ---
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 Active 887285157 Problem Weakness R53.1 Active [id number] ALLERGIES No Information ENCOUNTERS Encounter Location Date Diagnosis [facility] [id number] [place] [address] 02774- 1675 Oct, [facility] [id number] [place] [address] 15863- 9182 Sep, [facility] [id number] [place] [address] 05265- 0047 Sep, Back pain, lumbosacral M54.5 [facility] [id number] [place] [address] 36509- 4096 17 Jul, 2018 [facility] [id number] [place] [address] 58556- 9581 Jul, [facility] [id number] [place] [address] 90965- 8110 Jul, [facility] [id number] [place] [address] 78580- 7802 Jul, [facility] [id number] [place] [address] 15383- 7830 Jun, [facility] [id number] [place] [address] 81483- 2029 Apr, Back pain, lumbosacral M54.5 and Weight loss R63.4 [facility] [id number] [place] [address] 82889- 4098 Jan, [facility] [id number] [place] [address] 17998- 2457 Sep, Adjustment disorder with depressed mood F43.21 [facility] [address] 01914- 2456 Sep, Seizures R56.9 [facility] [address] 75072- 6885 Sep, [facility] [address] 06159- 3223 Jul, Adjustment disorder with depressed mood F43.21 and Other chronic pain G89.29 [facility] [address] 95631- 5080 Jun, Non-traumatic rhabdomyolysis M62.82 [facility] [id number] [place] [address] 58916- 9982 Apr, [facility] [address] 46429- 2513 Apr, Weakness R53.1 [facility] [id number] [place] [address] 06880- 6123 March, Weakness R53.1 [facility] [id number] [place] [address] 08858- 9968 March, [facility] [id number] [place] [address] 52416- 2546 March, Weakness R53.1 [facility] [address] 16146- 3595 Feb, [facility] [id number] [place] [address] 61201- 6176 Feb, Weakness R53.1 [facility] [id number] [address] 3936 Feb, Weakness R53.1 [facility] [id number] [place] [address] [id number] Jan, Dental caries K02.9 [facility] [address] [place] [address] [id number] Jan, Dental examination Z01.20 [facility] [id number] [place] [address] 74415- 5696 Dec, [facility] [id number] [place] [address] 051736- 6987 Dec, [facility] [id number] [place] [address] 872736- 3439 Nov, [facility] [id number] [place] [address] 69819- 4654 Nov, [facility] [id number] [place] [address] 84315- 9682 Nov, [facility] [id number] [place] [address] 46384- 8698 Nov, [facility] [id number] [place] [address] 04956- 7645 Nov, Weakness R53.1 and 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 [facility] [address] [place] [address] 82487- 3312 Nov, [facility] [id number] [place] [address] 84297- 4283 Oct, [facility] [id number] [place] [address] 310544- 9256 Jul, [facility] [id number] [place] [address] 206265- 3445 May, [facility] [id number] [place] [address] 67053- 1239 Apr, [facility] [id number] [place] [address] 12527- 3831 March, Seizures R56.9 and Neuropathy G62.9 [facility] [id number] [place] [address] 08969- 3693 March, [facility] [id number] [place] [address] 19816- 3687 March, [facility] [id number] [place] [address] 36479- 8566 March, Polyarthralgia M25.50 [facility] [address] 34346- 0986 Jan, Muscle cramp R25.2 [facility] [id number] [place] [address] 44254- 6224 Jan, [facility] [id number] [place] [address] 76732- 7204 Dec, [facility] [id number] [place] [address] 53103- 8153 Oct, Muscle cramp R25.2 [facility] [id number] [place] [address] 03617- 0549 Oct, [facility] [id number] [place] [address] 73690- 3358 Jul, [facility] [id number] [place] [address] 47752- 0874 Jun, [facility] [id number] [place] [address] 62845- 8389 Jun, [facility] [id number] [place] [address] 73521- 7213 May, Muscle cramp 729.82 [facility] [id number] [place] [address] 61789- 4376 May, Anxiety state, unspecified 300.00 [facility] [address] [address]- 3057 Apr, [facility] [id number] [place] [address] 36405- 9384 Apr, Anxiety state 300.00 ; Cognitive decline 294.9 and 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 [facility] [id number] [place] [address] 71476- 1109 March, [facility] [id number] [place] [address] 50109- 4484 March, [facility] [id number] [place] [address] 76045- 4202 March, Neuropathy 355.9 and Cognitive disorder 294.9 [facility] [id number] [place] [address] 69300- 9055 March, Neuropathy 355.9 and Cognitive disorder 294.9 [facility] [address] [address]- 3043 March, Spasm of muscle 728.85 ; Memory loss 780.93 and Tremor of both hands 781.0 [facility] [address] [address]- 8076 March, [facility] [address] [address]- 4479 Feb, [facility] [address] [place] [address]- 4298 Feb, [facility] [address] [place] [address]- 3213 Dec, [facility] [address] [place] [address]- 9202 Dec, [facility] [address] [place] [address]- 2356 Dec, [facility] [id number] [address]- 8430 Dec, [facility] [address] [id number] [place] [address]- 4433 Nov, [facility] [place] [facility] [address] [id number] [place] 6239 Nov, [facility] [place] [facility] [address] [id number] [place] [address]- 6999 Nov, [facility] [place] [facility] [address] [id number] [place] [address]- 9595 Nov, [facility] [place] [facility] [address] [id number] [place] [address]- 2979 Nov, [facility] [place] [facility] [address] [facility] [id number] [place] [address]- 7072 Nov, [facility] [address] [facility] [id number] [place] [address]- 2018 Oct, [facility] [place] [facility] [address] [id number] [place] [address]- 2504 Oct, [facility] [place] [facility] [address] [id number] [place] [address]- 0512 Sep[facility] [place] [facility] [address] [facility] [id number] [place] [address]- 7906 Sep, [facility] [place] [facility] [address] [id number] [place] [address]- 1772 Sep, [facility] [place] [facility] [address] [facility] [id number] [place] [address]- 4240 Sep, [facility] [place] [facility] [address] [id number] [place] [address]- 7130 Aug, [facility] [place] [facility] [address] [id number] [place] [address]- 0208 Aug, [facility] [place] [facility] [address] [id number] [place] [address]- 0001 Aug, [facility] [place] [facility] [address] [id number] [place] [address]- 4336 Aug, 2013 [facility] [place] [facility] [address] [id number] [place] [address]- 2741 Aug, 2013 [facility] [place] [facility] [address] [id number] [place] 7942 Aug, 2013 [facility] [place] [facility] [address] [id number] [place] [address]- 8435 Aug, 2013 [facility] [place] [facility] [address] [id number] [place] [address]- 4137 Aug, 2013 [facility] [place] [facility] [address] [id number] [place] [address]- 9447 Aug, 2013 [facility] [place] [facility] [address] [id number] [place] [address]- 7459 Aug, 2013 [facility] [place] [facility] [address] [id number] [place] [address]- 3729 Aug, 2013 [facility] [place] [facility] [address] [id number] [place] [address]- 2522 Aug, [facility] [place] [facility] [address] [id number] [place] [address]- 2246 Aug, [facility] [place] [facility] [address] [id number], [place] [address]- 7934 30 Jul, 2013 [facility] [place] [facility] [address] [id number], [place] [address]- 1167 18 Jul, 2013 [facility] [place] [facility] [address] [id number], [place] [address]- 5656 18 Sep, 2013 [facility] [place] [facility] [address] [id number], [place] [address]- 8530 03 Sep, 2013 [facility] [place] [facility] [address] [id number] 6480 03 Sep, 2013 [facility] [place] [facility] [address] [id number], [place] [address]- 4870 Jun, [facility] [address] [facility] [id number], [place] [address]- 8459 Jun, [facility] [address] [facility] [id number], [place] [address]- 1921 Jun, [facility] [address], [place] [address]- 2831 Jun, [facility] [address] [facility] [id number], [place] [address]- 6214 Jun, [facility] [address] [facility] [id number], [place] [address]- 3412 Jun, [facility] [address], [place] [address]- 4182 May, [facility] [address], [place] [address]- 9534 May, [facility] [address], [place] [address]- 3625 May, [facility] [id number] [address]- 4555 May, [facility] [id number] [address]- 6986 May, IMMUNIZATIONS No Known Immunizations SOCIAL HISTORY Never Assessed REASON FOR VISIT Medication refill request PLAN OF CARE VITAL SIGNS MEDICATIONS Medication Instructions Dosage Frequency Start Date End Date Duration Status PredniSONE 10 mg Orally Once a day 1 tablet 24h Apr, 30 days Active RESULTS No Results PROCEDURES No Known procedures INSTRUCTIONS MEDICATIONS ADMINISTERED No Known Medications MEDICAL (GENERAL) HISTORY Type Description Date Medical History asthma Medical History chronic pain Medical History polymyalgia/polyarthralgia Hospitalization History auto immune 2013 Hospitalization History Rhabdomylysis 04/15/16
--- OUTSIDE RECORDS SUMMARY | 2018-10-18 08:47 | XMS REPORT ---
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 Active 335725645 Problem Weakness R53.1 Active 58396784 ALLERGIES No Information ENCOUNTERS Encounter Location Date Diagnosis [place] [id number] [place] [address] 45421- 3177 17 Jul, 2018 [place] [id number] [place] [address] 76194- 0458 Jul, [facility] [id number] [place] [address] 71981- 8997 11 Jul, 2018 [facility] [address] 01024- 0863 Jul, [place] [id number] [place] [address] 73987- 2707 Jun, [facility] [address] 93984- 6892 Apr, Back pain, lumbosacral M54.5 and Weight loss R63.4 [facility] [address] 53200- 6347 Jan, [facility] [id number] [place] [address] 96288- 4018 Sep, Adjustment disorder with depressed mood F43.21 [place] [address] 38097 2546 Sep, Seizures R56.9 [facility] [id number] [place] [address] 70795 2546 Sep, [facility] [id number] [place] [address] 2546 Jul, Adjustment disorder with depressed mood F43.21 and Other chronic pain G89.29 [facility] [address] 82145 2546 Jun, Non-traumatic rhabdomyolysis M62.82 [facility] [id number] [place] [address] 39507 2546 Apr, [facility] [address] 50558 2546 Apr, Weakness R53.1 [facility] [address] 33028 2546 March, Weakness R53.1 [facility] [id number] [place] [address] 78318 2546 March, [facility] [id number] [place] [address] 31494 2546 March, Weakness R53.1 [facility] [id number] [place] [address] 08933 2546 Feb, [facility] [id number] [place] [address] 91107 2546 Feb, Weakness R53.1 [facility] [id number] [place] [address] 88021 2546 Feb, Weakness R53.1 [facility] [id number] [place] [address] [id number] Jan, Dental caries K02.9 [facility] [id number] [place] [address] [id number] Jan, Dental examination Z01.20 [facility] [address] [facility] [id number] [place] [address]- 7331 Dec, [facility] [address] [address]- 8830 Dec, [facility] [id number] [address]- 1514 Nov, [facility] [id number] [place] [address], [place] [address]- 2995 Nov, [facility] [address] [facility] [id number] [place] [address], [place] [address]- 5102 Nov, [facility] [id number] [place] [address], [place] [address]- 6240 Nov, [facility] 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 [address]- 1576 Nov, [facility] [id number] [place] [address], [place] [address]- 9574 Oct, [facility] [address] [address]- 5221 Jul, [facility] [address] [address]- 1077 May, [facility] [address], [place] [address] 2541 Apr, [facility] [address] [place] [address] 76572- 7642 March, Seizures R56.9 and Neuropathy G62.9 [facility] [address] [address]- 7168 March, [facility] [id number] [place] [address] 02636- 6019 March, [facility] [address] [place] [address] 53600- 9110 March, Polyarthralgia M25.50 [facility] [id number] [place] [address] 58478- 6636 Jan, Muscle cramp R25.2 [facility] [id number] [place] [address] 18248- 5932 Jan, [facility] [id number] [place] [address] 04137- 0261 Dec, [facility] [id number] [place] [address] 24903- 8178 Oct, Muscle cramp R25.2 [facility] [id number] [place] [address] 50801- 6010 Oct, [facility] [id number] [place] [address] 28382- 8679 Jul, [facility] [id number] [place] [address] 69598- 7528 Jun, [facility] [id number] [place] [address] 00775- 8874 Jun, [facility] [id number] [place] [address] 10351- 3273 May, Muscle cramp 729.82 [facility] [id number] [place] [address] 18818061- 0260 May, Anxiety state, unspecified 300.00 [facility] [id number] [place] [address] 628566- 5558 Apr, [facility] [id number] [place] [address] 06208- 2449 Apr, Anxiety state 300.00 ; Cognitive decline 294.9 and [place] II diagnosis deferred 799.9 [facility] [id number] [place] [address] 23083- 7963 March, [facility] [id number] [place] [address] 35405- 1197 March, [facility] [id number] [place] [address] 56275- 6663 March, Neuropathy 355.9 and Cognitive disorder 294.9 [facility] [id number] [place] [address] 13626- 6667 March, Neuropathy 355.9 and Cognitive disorder 294.9 [facility] [id number] [place] [address] 36701- 6301 March, Spasm of muscle 728.85 ; Memory loss 780.93 and Tremor of both hands 781.0 [facility] [id number] [place] [address] 81262- 9638 March, [facility] [id number] [place] [address] 96765- 4572 Feb, [facility] [id number] [place] [address] 90088- 3647 Feb, [facility] [id number] [place] [address] 55521- 7604 Dec, [facility] [id number] [place] [address] 09549- 6855 Dec, [facility] [id number] [place] [address] 14140- 6887 Dec, [facility] [id number] [place] [address] 847241- 2527 Dec, [facility] [id number] [place] [address] [id number]- 3439 Nov, [facility] [id number] [place] [address] 84920- 4210 Nov, [facility] [id number] [place] [address] 60303- 6616 Nov, [facility] [place] [facility] [address] [id number] [place] [address]- 5837 Nov, [facility] [place] [facility] [address] [id number] [place] [address]- 9778 Nov, [facility] [place] [facility] [address] [id number] [place] [address]- 4400 Nov, [facility] [place] [facility] [address] [id number] [place]- 3994 Oct, [facility] [place] [facility] [address] [id number] [place] [address]- 4418 Oct, [facility] [place] [facility] [address] [id number] [place] [address]- 9689 Sep, [facility] [place] [facility] [address] [id number] [place] [address]- 1082 Sep, [facility] [place] [facility] [address] [id number] [place] [address]- 7039 Sep, [facility] [place] [facility] [address] [id number] [place] [address]- 0236 Sep, [facility] [place] [facility] [address] [id number] [place] [address]- 0516 Aug, [facility] [place] [facility] [address] [id number], [place] [address]- 2053 Aug, [facility] [place] [facility] [address] [id number], [place] [address]- 0331 Aug, [facility] [place] [facility] [address] [id number] [place] [address]- 7704 Aug, [facility] [place] [facility] [address] [id number], [place] [address]- 3249 Aug, [facility] [place] [facility] [address] [id number], [place] [address]- 8194 Aug, [facility] [place] [facility] [address] [id number] [place] [address]- 7765 Aug, [facility] [place] [facility] [address] [id number] [place] [address]- 5336 Aug, [facility] [place] [facility] [address] [id number] [place] [address]- 1407 Aug, [facility] [place] [facility] [address] [id number] [place] [address]- 1451 Aug, [facility] [place] [facility] [address] [id number] [place] [address]- 4601 Aug, [facility] [place] [facility] [address] [id number] [place] [address]- 2495 Aug, [facility] [place] [facility] [address] [id number] [place] [address]- 8335 Aug, [facility] [place] [facility] [address] [id number] [place] [address]- 5968 Jul, [facility] [place] [facility] [address] [id number] [place] [address]- 6247 Jul, [facility] [place] [facility] [address] [id number] [place] [address]- 0410 Jul, [facility] [place] [facility] [address] [id number] [place] [address]- 4332 Jul, [facility] [place] [facility] [address] [id number] [place] [address]- 5933 Jul, [facility] [place] [facility] [address] [id number] [place] [address]- 5477 Jun, [facility] [place] [facility] [address] [id number] [place] [address]- 4233 Jun, [facility] [place] [facility] [address] [id number] [place] [address]- 9704 Jun, [facility] [place] [facility] [address] [id number] [place] [address]- 3057 Jun, [facility] [address] [facility] [id number] 3646 Jun, [facility] [id number] [address]- 2460 Jun, [facility] [id number] [address]- 5556 May, [facility] [address] 7989 May, [facility] [id number] [address]- 6997 May, [facility] [id number] [address]- 9581 May, [facility] [id number] [address]- 3393 May, IMMUNIZATIONS No Known Immunizations SOCIAL HISTORY Never Assessed REASON FOR VISIT release for work PLAN OF CARE VITAL SIGNS MEDICATIONS Unknown Medications RESULTS No Results PROCEDURES No Known procedures INSTRUCTIONS MEDICATIONS ADMINISTERED No Known Medications MEDICAL (GENERAL) HISTORY Type Description Date Medical History asthma Medical History chronic pain Medical History polymyalgia/polyarthralgia Hospitalization History auto immune 2013 Hospitalization History Rhabdomylysis 04/15/16
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
[2018-10-18] MEDS ORDERED: INHALER (08:50)
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
--- OUTSIDE RECORDS SUMMARY | 2018-10-18 08:51 | XMS REPORT ---
Author Author JUNE TAMAYO Organization [facility] Address [address] [place] [address] Care Team Providers Care Scrap Sorter Name Role Phone JUNE TAMAYO Unavailable PROBLEMS Type Condition ICD9-CM Code [id number] Code Onset Dates Condition Status SNOMED Code Problem Polydipsia 783.5 Active 95655342 Problem Spasm of muscle 728.85 Active 83184235 Problem Other malaise and fatigue 780.79 Active 281716754 Problem Need for prophylactic vaccination and inoculation, Influenza V04.81 Active 314504016 Problem Polyuria 788.42 Active 87949745 Problem Adjustment disorder with depressed mood F43.21 Active 05138996 Problem Other chronic pain G89.29 Active 49622677 Problem Other chronic pain 338.29 Active 69880595 Problem Asthma, unspecified, unspecified status 493.90 Active 26166398 Problem 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 [id number] [place] [address] 53046- 8466 11 Sep, 2017 [place] [address] [address]- 8454 22 Jul, 2017 Adjustment disorder with depressed mood F43.21 and Other chronic pain G89.29 [facility] [id number] [place] [address] 76430- 1305 14 Jun, 2017 Non-traumatic rhabdomyolysis M62.82 [place] [address] [id number] [address] Apr, [facility] [address] [facility] [id number] [place] [address] 75218- 0176 Apr, Weakness R53.1 [facility] [address] [facility] [id number] [place] [address] 25079- 9866 March, Weakness R53.1 [facility] [address] [facility] [id number] [place] [address] 77886- 4236 March, [facility] [address] [facility] [id number] [place] [address] 66081- 2721 March, Weakness R53.1 [facility] [id number] [place] [address] 76852- 0170 Feb, [facility] [id number] [place] [address] 57679- 2692 Feb, Weakness R53.1 [facility] [id number] [place] [address] 32269- 3003 Feb, Weakness R53.1 [facility] [id number] [place] [address] [id number] Jan, Dental caries K02.9 [facility] [id number] [place] [address] [id number] Jan, Dental examination Z01.20 [facility] [id number] [place] [address] 92026- 5449 Dec, [facility] [id number] [place] [address] 54788- 0443 Dec, [facility] [id number] [place] [address] 272637- 8277 Nov, [facility] [id number] [place] [address] 68120- 8355 Nov, [facility] [id number] [place] [address] 84321- 9792 Nov, [facility] [id number] [place] [address] 61356- 0594 Nov, 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 [id number] [place] [address] 13394- 2127 Nov, [facility] [id number] [place] [address] 86883- 0023 Oct, [facility] [id number] [place] [address] 70025- 1688 Jul, [facility] [id number] [place] [address] 41830- 9977 May, [facility] [id number] [place] [address] 31492- 6972 Apr, [facility] [id number] [place] [address] 00801- 4984 March, Seizures R56.9 and Neuropathy G62.9 [facility] [id number] [place] [address] 82535- 3792 March, [facility] [id number] [place] [address] 69370- 5370 March, [facility] [id number] [place] [address] 17078- 9708 March, Polyarthralgia M25.50 [facility] [id number] [place] [address] 69925- 4799 Jan, Muscle cramp R25.2 [facility] [address] [address] 2112 Jan, [facility] [id number] [place] [address] 96195- 3696 Dec, [facility] [address] 4520 Oct, Muscle cramp R25.2 [facility] [id number] [place] [address] 52087- 9256 Oct, [facility] [id number] [place] [address] 07441- 3772 Jul, [facility] [id number] [place] [address] 94284- 2788 Jun, [facility] [id number] [place] [address] 143642- 5311 Jun, [facility] [id number] [place] [address] 289409- 2133 May, Muscle cramp 729.82 [facility] [id number] [place] [address] 355742- 7348 May, Anxiety state, unspecified 300.00 [facility] [id number] [place] [address] 926960- 4470 Apr, [facility] [id number] [place] [address] 058079- 8601 Apr, Anxiety state 300.00 ; Cognitive decline 294.9 and [place] II diagnosis deferred 799.9 [facility] [id number] [place] [address] 50314- 3091 March, [facility] [id number] [place] [address] [id number]- 3644 March, [facility] [id number] [place] [address] 61696- 5695 March, Neuropathy 355.9 and Cognitive disorder 294.9 [facility] [id number] [place] [address] 916825- 9304 March, Neuropathy 355.9 and Cognitive disorder 294.9 [facility] [address] [id number] [address]- 5263 March, Spasm of muscle 728.85 ; Memory loss 780.93 and Tremor of both hands 781.0 [facility] [address], [place] [address]- 4046 March, [facility] [id number] [address]- 6560 Feb, [facility] [id number] [place] [address] 16957- 3014 Feb, [facility] [id number] [place] [address] 78381- 8754 Dec, [facility] [id number] [place] [address] 552515- 5317 Dec, [facility] [id number] [place] [address] 04584- 3477 Dec, [facility] [id number] [address]- 6943 Dec, [facility] [address] [address]- 5236 Nov, [facility] [id number], [place] [address]- 2088 Nov, [facility] [address], [place] [address]- 1176 Nov, [facility] [id number], [place] [address]- 1045 Nov, [facility] [id number], [place] [address]- 3163 Nov, [facility] [id number] 1961 Nov, [facility] [id number], [place] [address]- 8586 Oct, [facility] [place] [facility] [id number] [place] [address]- 3849 Oct, [facility] [place] [facility] [address] [id number] [place] [address]- 2181 Sep, [facility] [place] [facility] [address] [id number] [place] [address]- 6720 Sep, [facility] [place] [facility] [address] [id number] [place] [address]- 3011 Sep, [facility] [place] [facility] [address] [id number] [place] [address]- 7299 Sep, [facility] [place] [facility] [address] [id number] [place] 2718 Aug, [facility] [place] [facility] [address] [id number] [place] [address]- 9810 Aug, [facility] [place] [facility] [address] [id number] [place] [address]- 9807 Aug, [facility] [place] [facility] [address] [id number] [place] [address]- 6254 Aug, [facility] [place] [facility] [address] [id number] [place] [address]- 4297 Aug, [facility] [place] [facility] [address] [id number] [place] [address]- 0036 Aug, [facility] [place] [facility] [address] [id number] [place] [address]- 6800 Aug, [facility] [place] [facility] [address] [id number] [place] [address]- 3950 Aug, [facility] [place] [facility] [address] [id number] [place] [address]- 8979 Aug, [facility] [place] [facility] [address] [id number] [place] [address]- 6352 Aug, [facility] [place] [facility] [address] [id number] [place] [address]- 9911 Aug, [facility] [place] [facility] [address] [id number] [place] [address]- 8442 Aug, [facility] [place] [facility] [address] [id number] [place] [address]- 8758 Aug, [facility] [place] [facility] [address] [id number] [place] [address]- 4870 Jul, [facility] [place] [facility] [address] [id number] [place] [address]- 9759 Jul, [facility] [place] [facility] [address] [id number] [place] [address]- 9611 Jul, [facility] [place] [facility] [address] [id number] [place] [address]- 2894 Jul, [facility] [place] [facility] [address] [id number] [place] [address]- 6892 Jul, [facility] [place] [facility] [address] [id number] [place] [address]- 7421 Jun, [facility] [place] [facility] [address] [id number] [place] [address]- 5405 Jun, [facility] [place] [facility] [address] [id number] [place] [address]- 9224 Jun, [facility] [place] [facility] [address] [id number] [place] [address]- 4422 Jun, [facility] [place] [facility] [address] [id number] [place] [address]- 6244 Jun, [facility] [place] [facility] [address] [id number] [place] [address]- 9181 Jun, [facility] [place] [facility] [address] [id number] [place] [address]- 7480 May, [facility] [place] [facility] [address] [id number] [place] 3049 May, [facility] [place] [facility] [address] [id number] [place] [address]- 5798 May, [facility] [address] [facility] [id number] [place] [address]- 6238 May, [facility] [address] [facility] [id number] [place] [address]- 5118 May, IMMUNIZATIONS No Known Immunizations SOCIAL HISTORY [...]
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
--- OUTSIDE RECORDS SUMMARY | 2018-10-18 08:52 | XMS REPORT ---
Author Author JUNE TAMAYO Organization [facility] Address [address] [place] [address] Care Team Providers Care Software Applications Specialist Name Role Phone JUNE TAMAYO Unavailable PROBLEMS Type Condition ICD9-CM Code VFQ35-RI Code Onset Dates Condition Status SNOMED Code Problem Polydipsia 783.5 Active 63867168 Problem Spasm of muscle 728.85 Active 16282185 Problem Other malaise and fatigue 780.79 Active 566336464 Problem Need for prophylactic vaccination and inoculation, Influenza V04.81 Active 625722095 Problem Polyuria 788.42 Active 27011795 Problem Adjustment disorder with depressed mood F43.21 Active 59126874 Problem Other chronic pain G89.29 Active 19336191 Problem Other chronic pain 338.29 Active 15235538 Problem Asthma, unspecified, unspecified status 493.90 Active 36074251 Problem 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 Active 951126009 Problem Weakness R53.1 Active 75295117 ALLERGIES No Information ENCOUNTERS Encounter Location Date Diagnosis [place] [id number] [place] [address] 02138- 1494 27 Sep, 2017 Adjustment disorder with depressed mood F43.21 [place] [id number] [place] [address] 48271- 9810 13 Sep, 2017 Seizures R56.9 [facility] [id number] [place] [address] 14999- 6497 11 Sep, 2017 [place] [address] 41517- 6691 22 Jul, 2017 Adjustment disorder with depressed mood F43.21 and Other chronic pain G89.29 [facility] [id number] [place] [address] 36120- 6513 14 Jun, 2017 Non-traumatic rhabdomyolysis M62.82 [place] [address] [id number] [address] Apr, [facility] [address] [facility] [id number] [place] [address] 11644- 7176 Apr, Weakness R53.1 [facility] [address] [facility] [id number] [place] [address] 53743- 6796 March, Weakness R53.1 [facility] [address] [facility] [id number] [place] [address] 30468- 8436 March, [facility] [address] [facility] [id number] [place] [address] 93635- 0123 March, Weakness R53.1 [facility] [id number] [place] [address] 92474- 4619 Feb, [facility] [id number] [place] [address] 38265- 6053 Feb, Weakness R53.1 [facility] [id number] [place] [address] 71267- 5929 Feb, Weakness R53.1 [facility] [id number] [place] [address] [id number] Jan, Dental caries K02.9 [facility] [id number] [place] [address] [id number] Jan, Dental examination Z01.20 [facility] [id number] [place] [address] 10944- 7753 Dec, [facility] [id number] [place] [address] 42407- 9004 Dec, [facility] [id number] [place] [address] 412360- 0936 Nov, [facility] [id number] [place] [address] 34093- 3411 Nov, [facility] [id number] [place] [address] 82967- 6202 Nov, [facility] [id number] [place] [address] 29900- 0114 Nov, [facility] [id number] [place] [address] 978018- 0891 Nov, Weakness R53.1 and 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 [facility] [id number] [place] [address] 01079- 5327 Nov, [facility] [id number] [place] [address] 75950- 5388 Oct, [facility] [id number] [place] [address] 04211- 0448 Jul, [facility] [id number] [place] [address] 67098- 0249 May, [facility] [id number] [place] [address] 94206- 5513 Apr, [facility] [id number] [place] [address] 82742- 7160 March, Seizures R56.9 and Neuropathy G62.9 [facility] [id number] [place] [address] 39068- 5302 March, [facility] [id number] [place] [address] 58016- 2471 March, [facility] [id number] [place] [address] 66845- 3697 March, Polyarthralgia M25.50 [facility] [id number] [place] [address] 74043- 4324 Jan, Muscle cramp R25.2 [facility] [address] [address]- 1284 Jan, [facility] [id number] [place] [address] 11703- 8063 Dec, [facility] [address] 8900 Oct, Muscle cramp R25.2 [facility] [address] [place] [address] 51892- 3136 Oct, [facility] [id number] [place] [address] 47400- 4864 Jul, [facility] [id number] [place] [address] 39072- 5845 Jun, [facility] [id number] [place] [address] 382140- 5193 Jun, [facility] [id number] [place] [address] 161810- 4201 May, Muscle cramp 729.82 [facility] [id number] [place] [address] 786202- 5850 May, Anxiety state, unspecified 300.00 [facility] [id number] [place] [address] 618388- 8617 Apr, [facility] [id number] [place] [address] 288953- 2725 Apr, Anxiety state 300.00 ; Cognitive decline 294.9 and [place] II diagnosis deferred 799.9 [facility] [id number] [place] [address] 06994- 5170 March, [facility] [id number] [place] [address] [id number]- 5617 March, [facility] [id number] [place] [address] 63572- 7997 March, Neuropathy 355.9 and Cognitive disorder 294.9 [facility] [address] [place] [address] 109387- 2826 March, Neuropathy 355.9 and Cognitive disorder 294.9 [facility] [id number] [address]- 5345 March, Spasm of muscle 728.85 ; Memory loss 780.93 and Tremor of both hands 781.0 [facility] [address] [address]- 6646 March, [facility] [id number] [address]- 7176 Feb, [facility] [id number] [place] [address] 32179- 3490 Feb, [facility] [id number] [place] [address] 81422- 0427 Dec, [facility] [id number] [place] [address] 250557- 4870 Dec, [facility] [id number] [place] [address] 41080- 2287 Dec, [facility] [id number] [address]- 5022 Dec, [facility] [address], [place] [address]- 3295 Nov, [facility] [address], [place] [address]- 6506 Nov, [facility] [address], [place] [address]- 0326 Nov, [facility] [address], [place] [address]- 1496 Nov, [facility] [address] [place] [address]- 6125 Nov, [facility] [address] 3727 Nov, [facility] [address], [place] [address]- 8834 Oct, [facility] [place] [facility] [id number] [address]- 5091 Oct, [facility] [place] [facility] [address] [id number] [place] [address]- 4324 Sep, [facility] [place] [facility] [address] [id number] [place] [address]- 1516 Sep, [facility] [place] [facility] [address] [id number] [place] [address]- 9634 Sep, [facility] [place] [facility] [address] [id number] [place] [address]- 0032 Sep, [facility] [place] [facility] [address] [id number] [place] 1266 Aug, [facility] [place] [facility] [address] [id number] [place] [address]- 8109 Aug, [facility] [place] [facility] [address] [id number] [place] [address]- 3017 Aug, [facility] [place] [facility] [address] [id number] [place] [address]- 6277 Aug, [facility] [place] [facility] [address] [id number] [place] [address]- 6982 Aug, [facility] [place] [facility] [address] [id number] [place] [address]- 9652 Aug, [facility] [place] [facility] [address] [id number] [place] [address]- 4864 Aug, [facility] [place] [facility] [address] [id number] [place] [address]- 5506 Aug, [facility] [place] [facility] [address] [id number] [place] [address]- 0289 Aug, [facility] [place] [facility] [address] [id number] [place] [address]- 6168 Aug, [facility] [place] [facility] [address] [id number] [place] [address]- 7855 Aug, [facility] [place] [facility] [address] [id number] [place] [address]- 1558 Aug, [facility] [place] [facility] [address] [id number] [place] [address]- 0671 Aug, [facility] [place] [facility] [address] [id number] [place] [address]- 2010 Jul, [facility] [place] [facility] [address] [id number] [place] [address]- 4874 Jul, [facility] [place] [facility] [address] [id number] [place] [address]- 2443 Jul, [facility] [place] [facility] [address] [id number] [place] [address]- 8916 Jul, [facility] [place] [facility] [address] [id number] [place] [address]- 1570 Jul, [facility] [place] [facility] [address] [id number] [place] [address]- 9862 Jun, [facility] [place] [facility] [address] [id number] [place] [address]- 2345 Jun, [facility] [place] [facility] [address] [id number] [place] [address]- 6716 Jun, [facility] [place] [facility] [address] [id number] [place] [address]- 4984 Jun, [facility] [place] [facility] [address] [id number] [place] [address]- 2792 Jun, [facility] [place] [facility] [address] [id number] [place] [address]- 7646 Jun, [facility] [place] [facility] [address] [id number] [place] [address]- 4068 May, [facility] [place] [facility] [address] [id number] [place] 9252 May, [facility] [place] [facility] [address] [id number] [place] [address]- 8990 May, [facility] [address] [facility] [id number] [place] [address]- 4346 May, [facility] [address] [facility] [id number] [place] [address]- 4683 May, IMMUNIZATIONS No Known Immunizations SOCIAL HISTORY Never Assessed REASON FOR VISIT Concerns PLAN OF CARE VITAL SIGNS MEDICATIONS Medication [...]
--- OUTSIDE RECORDS SUMMARY | 2018-10-18 08:53 | XMS REPORT | Continuity of Care Document ---
Author Author [facility] Address Unknown Phone Unavailable Allergies Active Description Code Type Severity Reaction Onset Reported/Identified Relationship to Patient Clinical Status Yes NO NAME AVAILABLE 14744 DRUG N/ A N/A Yes No Known Drug Allergies [id number] Drug Allergy Unknown N/A 06/14/2014 Medications There is no data. Problems Date Dx Coded Attending Type Code [...] MARIA JARAMILLO PHD 493.90 ASTHMA UNSPECIFIED 06/17/2014 ANA MARIA JARAMILLO PHD 493.90 ASTHMA UNSPECIFIED 06/17/2014 SHANNA DE LA [...] VEGA DO 788.42 POLYURIA 08/07/2014 NARESH MATHIS PLUMBING INSTALLER Ot 288.60 LEUKOCYTOSIS, UNSPECIFIED 08/07/2014 NARESH MATHIS PLUMBING INSTALLER Ot 719.46 JOINT PAIN-L/LEG 08/11/2014 ANA MARIA [...] PHD 728.85 MUSCLE SPASM 08/29/2014 ANA MARIA JARAMILLO PHD 338.29 CHRONIC PAIN 08/29/2014 ANA MARIA JARAMILLO PHD 728.85 MUSCLE SPASM 08/29/2014 SHANNA DE LA VEGA DO 338.29 CHRONIC PAIN 08/29/2014 SHANNA DE LA VEGA DO 728.85 MUSCLE SPASM 09/28/2014 ANA MARIA JARAMILLO PHD 311 MO DEPRESS NOS 09/28/2014 ANA MARIA JARAMILLO PHD 311 MO DEPRESS NOS 09/28/2014 SHANNA DE LA VEGA DO K 311 MO DEPRESS NOS 11/29/2014 SHANNA DE [...] HISTORY OF URINARY CALCULI 06/27/2016 MAURY ROJO MD, Ot M79.1 MYALGIA 06/27/2016 MAURY ROJO MD Ot R10.31 RIGHT LOWER QUADRANT PAIN 06/27/2016 MAURY ROJO MD Ot Z87.442 PERSONAL HISTORY OF URINARY CALCULI 07/16/2016 TED VELA Ot K02.9 DENTAL CARIES, UNSPECIFIED 07/16/2016 TED VELA Ot K04.7 PERIAPICAL ABSCESS WITHOUT SINUS 07/16/2016 TED VELA Ot K08.8 OTHER SPECIFIED DISORDERS OF TEETH AND S 07/19/2016 MAURY ROJO MD Ot M79.1 MYALGIA 07/19/2016 MAURY ROJO MD, Ot R10.31 RIGHT LOWER QUADRANT PAIN 07/19/2016 MAURY ROJO MD, Ot Z87.442 PERSONAL HISTORY OF URINARY CALCULI 10/24/2016 NARESH MATHIS APRN Ot J06.9 ACUTE UPPER RESPIRATORY INFECTION, UNSPE 10/24/2016 NARESH MATHIS APRN Ot M62.82 RHABDOMYOLYSIS 10/24/2016 NARESH MATHIS APRN Ot R09.81 NASAL CONGESTION 10/24/2016 NARESH MATHIS APRN Ot 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 10/25/2016 NARESH MATHIS APRN Ot J06.9 ACUTE UPPER RESPIRATORY INFECTION, UNSPE 10/25/2016 NARESH MATHIS APRN Ot M62.82 RHABDOMYOLYSIS 10/25/2016 NARESH MATHIS APRN Ot R09.81 NASAL CONGESTION 10/25/2016 NARESH MATHIS APRN Ot Z79.52 GROUP HOME (CURRENT) USE OF SYSTEMIC STER 10/30/2016 NARESH MATHIS APRN Ot J06.9 ACUTE UPPER RESPIRATORY INFECTION, UNSPE 10/30/2016 NARESH MATHIS APRN Ot M62.82 RHABDOMYOLYSIS 10/30/2016 NARESH MATHIS APRN Ot R09.81 NASAL CONGESTION 10/30/2016 NARESH MATHIS APRN Ot Z79.52 GROUP HOME (CURRENT) USE OF SYSTEMIC STER 10/31/2016 NARESH MATHIS APRN Ot J02.9 ACUTE PHARYNGITIS, UNSPECIFIED 10/31/2016 NARESH MATHIS APRN Ot R11.2 NAUSEA WITH VOMITING, UNSPECIFIED 10/31/2016 MATHIS, PETER J PLUMBING INSTALLER Ot R74.8 ABNORMAL LEVELS OF OTHER SERUM ENZYMES 10/31/2016 NARESH MATHIS PLUMBING INSTALLER Ot 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 11/18/2016 NARESH MATHIS PLUMBING INSTALLER Ot K02.9 DENTAL CARIES, UNSPECIFIED 11/18/2016 NARESH MATHIS PLUMBING INSTALLER Ot K08.9 DISORDER OF TEETH AND SUPPORTING STRUCTU 11/20/2016 NARESH MATHIS PLUMBING INSTALLER Ot K02.9 DENTAL CARIES, UNSPECIFIED 11/20/2016 NARESH MATHIS PLUMBING INSTALLER Ot K08.9 DISORDER OF TEETH AND SUPPORTING STRUCTU 12/02/2016 MAURY ROJO MD Ot M79.1 MYALGIA 12/02/2016 MAURY RJOO MD Ot R53.1 WEAKNESS 12/02/2016 MAURY ROJO MD Ot Z79.52 GROUP HOME (CURRENT) USE OF SYSTEMIC STER 12/03/2016 MAURY ROJO MD Ot M79.1 MYALGIA 12/03/2016 MAURY ROJO MD Ot R53.1 WEAKNESS 12/03/2016 MAURY ROJO MD Ot Z79.52 GROUP HOME (CURRENT) USE OF SYSTEMIC STER 02/17/2017 TED VELA Ot F17.210 NICOTINE DEPENDENCE, CIGARETTES, UNCOMPL 02/17/2017 TED VELA Ot G89.18 OTHER ACUTE POSTPROCEDURAL PAIN 02/17/2017 TED VELA Ot K08.409 PARTIAL LOSS OF TEETH, UNSPECIFIED CAUSE 02/17/2017 TED VELA Ot K08.9 DISORDER OF TEETH AND SUPPORTING STRUCTU 02/18/2017 TED VELA Ot F17.210 NICOTINE DEPENDENCE, [...] K08.9 DISORDER OF TEETH AND SUPPORTING STRUCTU 10/02/2017 MAURY ROJO MD, Ot J45.909 UNSPECIFIED ASTHMA, UNCOMPLICATED 10/02/2017 MAURY ROJO MD Ot M79.1 MYALGIA 10/02/2017 MAURY ROJO MD Ot R53.1 WEAKNESS 10/02/2017 MAURY ROJO MD Ot Z87.891 PERSONAL HISTORY OF NICOTINE DEPENDENCE 10/04/2017 MAURY ROJO MD Ot E87.6 HYPOKALEMIA 10/04/2017 MAURY ROJO MD, Ot J45.909 UNSPECIFIED ASTHMA, UNCOMPLICATED 10/04/2017 MAURY ROJO MD Ot M35.9 SYSTEMIC INVOLVEMENT OF CONNECTIVE TISSU 10/04/2017 MAURY ROJO MD Ot M79.1 MYALGIA 10/04/2017 MAURY ROJO MD Ot Z87.891 PERSONAL HISTORY OF NICOTINE DEPENDENCE 10/06/2017 MAURY ROJO MD Ot J45.909 UNSPECIFIED ASTHMA, UNCOMPLICATED 10/06/2017 MAURY ROJO MD Ot M79.1 MYALGIA 10/06/2017 MAURY ROJO MD Ot R53.1 WEAKNESS 10/06/2017 MAURY ROJO MD Ot Z87.891 PERSONAL HISTORY OF NICOTINE DEPENDENCE 10/08/2017 TAMI VICKERS MD Ot F17.210 NICOTINE DEPENDENCE, CIGARETTES, UNCOMPL 10/08/2017 TAMI VICKERS MD Ot J45.909 UNSPECIFIED ASTHMA, UNCOMPLICATED 10/08/2017 TAMI VICKERS MD Ot R07.81 PLEURODYNIA 10/08/2017 TAMI VICKERS MD Ot R07.89 OTHER CHEST PAIN Procedures Code [place] [address] ROUTINE VENIPUNCTURE 06/27/2014 11906 TSH 06/27/2014 38505 SED/ESR RATE (IN HOUSE) 06/27/2014 07466 CRP 06/27/2014 12613 OXIMETRY 06/27/2014 50821 CBC 06/27/2014 6382702 GFR CALC (RESULT ONLY) 06/27/2014 34675 CMP 06/27/2014 28549 LIPID PANEL 06/27/2014 65463 PSYCH DIAGNOSTIC EVALUATION 08/11/2014 95920 ROUTINE VENIPUNCTURE 08/29/2014 39119 CORTISOL 08/29/2014 90437 ASO 08/29/2014 07630 RA FACTOR 08/29/2014 ANAANA LINDA ANALYZER (SCREEN) 08/29/2014 74087 MAGNESIUM 08/30/2014 92814 PSYTX PT&/FAMILY 30 MINUTES 09/28/2014 Results Test Result Range Complete blood count (CBC) with automated white blood cell (WBC) differential - 06/26/16 17:48 Blood leukocytes automated count (number/volume) 10.8 10*3/uL 4.3-11.0 Blood erythrocytes automated count (number/volume) 5.05 10*6/uL 4.35-5.85 Venous blood hemoglobin measurement (mass/volume) 14.4 [...] Automated blood platelet mean volume measurement 10.2 [foz_us] 7.4-10.4 Automated blood neutrophils/100 leukocytes 83 % [...] Serum or plasma sodium measurement (moles/volume) 141 mmol/L 135-145 Serum or plasma potassium measurement (moles/volume) 4.0 mmol/L 3.6-5.0 Serum or plasma chloride measurement (moles/volume) 105 mmol/L 98-107 Carbon dioxide 27 mmol/L 21-32 Serum or plasma anion gap determination (moles/volume) 9 mmol/L 5-14 Serum or plasma urea nitrogen measurement (mass/volume) 11 mg/dL 7-18 Serum or plasma creatinine measurement (mass/volume) 1.11 mg/dL 0.60-1.30 Serum or plasma urea nitrogen/creatinine mass [...] Urine pH measurement by test strip 6 5-9 Specific gravity of urine by test strip 1.020 1.016- 1.022 Urine protein assay by test strip, semi-quantitative [...] 14:26 Blood leukocytes automated count (number/volume) 8.0 10*3/uL 4.3-11.0 Blood erythrocytes automated count (number/volume) 5.25 10*6/uL 4.35-5.85 Venous blood hemoglobin measurement (mass/volume) 14.6 [...] Automated blood platelet mean volume measurement 10.1 [foz_us] 7.4-10.4 Automated blood neutrophils/100 leukocytes 77 % [...] Serum or plasma sodium measurement (moles/volume) 146 mmol/L 135-145 Serum or plasma potassium measurement (moles/volume) 3.8 mmol/L 3.6-5.0 Serum or plasma chloride measurement (moles/volume) 105 mmol/L 98-107 Carbon dioxide 28 mmol/L 21-32 Serum or plasma anion gap determination (moles/volume) 13 mmol/L 5-14 Serum or plasma urea nitrogen measurement (mass/volume) 7 mg/dL 7-18 Serum or plasma creatinine measurement (mass/volume) 0.90 mg/dL 0.60-1.30 Serum or plasma urea nitrogen/creatinine mass [...] FOR INFLUENZA A AND B ANTIGENS BY [facility] Complete blood count (CBC) with automated white blood cell (WBC) differential - 12/02/16 06:50 Blood leukocytes automated count (number/volume) 8.6 10*3/uL 4.3-11.0 Blood erythrocytes automated count (number/volume) 5.33 10*6/uL 4.35-5.85 Venous blood hemoglobin measurement (mass/volume) 14.9 [...] Automated blood platelet mean volume measurement 10.1 [foz_us] 7.4-10.4 Automated blood neutrophils/100 leukocytes 42 % [...] Serum or plasma sodium measurement (moles/volume) 141 mmol/L 135-145 Serum or plasma potassium measurement (moles/volume) 3.5 mmol/L 3.6-5.0 Serum or plasma chloride measurement (moles/volume) 101 mmol/L 98-107 Carbon dioxide 29 mmol/L 21-32 Serum or plasma anion gap determination (moles/volume) 11 mmol/L 5-14 Serum or plasma urea nitrogen measurement (mass/volume) 11 mg/dL 7-18 Serum or plasma creatinine measurement (mass/volume) 1.07 mg/dL 0.60-1.30 Serum or plasma urea nitrogen/creatinine mass [...] Urine pH measurement by test strip 6.5 5-9 Specific gravity of urine by test strip 1.015 1.016- 1.022 Urine protein assay by test strip, semi-quantitative [...] urinalysis with reflex to culture NO NRG CBC With Differential/Platelet - 12/10/16 09:37 WBC 11.1 x10E3/uL 3.4-10.8 RBC 5.51 x10E6/uL 4.14-5.80 Hemoglobin 15.1 g/dL 12.6-17.7 Hematocrit 48.2 % 37.5-51.0 MCV 88 fL 79-97 MCH 27.4 pg 26.6-33.0 MCHC 31.3 g/dL 31.5-35.7 RDW 13.2 % 12.3-15.4 Platelets 293 x10E3/uL 150-379 Neutrophils 51 % Lymphs 38 % Monocytes 9 % Eos 2 % Basos 0 % Neutrophils (Absolute) 5.7 x10E3/uL 1.4-7.0 Lymphs (Absolute) 4.2 x10E3/uL 0.7-3.1 Monocytes(Absolute) 1.0 x10E3/uL 0.1-0.9 Eos (Absolute) 0.2 x10E3/uL 0.0-0.4 Baso (Absolute) 0.0 x10E3/uL 0.0-0.2 Immature Granulocytes 0 % Immature Grans (Abs) 0.0 x10E3/uL 0.0-0.1 Comp. Metabolic Panel (14) - 12/10/16 09:37 Glucose, Serum 89 mg/dL 65-99 BUN 10 mg/dL 6-20 Creatinine, Serum 1.03 mg/dL 0.76-1.27 eGFR If NonAfricn Am 100 mL/min/1.73 >59 eGFR If Africn Am 115 mL/min/1.73 >59 BUN/Creatinine Ratio 10 8-19 Sodium, Serum 142 mmol/L 134-144 Potassium, Serum 3.9 mmol/L 3.5-5.2 Chloride, Serum 97 mmol/L 96-106 Carbon Dioxide, Total 27 mmol/L 18-29 Calcium, Serum 9.7 mg/dL 8.7-10.2 Protein, Total, Serum 6.9 g/dL 6.0-8.5 Albumin, Serum 4.3 g/dL 3.5-5.5 Globulin, Total 2.6 g/dL 1.5-4.5 A/G Ratio 1.7 1.1-2.5 Bilirubin, Total 0.8 mg/dL 0.0-1.2 Alkaline Phosphatase, S 77 IU/L 39-117 AST (SGOT) 17 IU/L 0-40 ALT (SGPT) 22 IU/L 0-44 TSH - 12/10/16 09:37 TSH 1.300 uIU/mL 0.450-4.500 Comp. Metabolic Panel (14) - 03/24/17 12:05 Glucose, Serum 89 mg/dL 65-99 BUN 12 mg/dL 6-20 Creatinine, Serum 1.05 mg/dL 0.76-1.27 eGFR If NonAfricn Am 97 mL/min/1.73 >59 eGFR If Africn Am 113 mL/min/1.73 >59 BUN/Creatinine Ratio 11 9-20 Sodium, Serum 145 mmol/L 134-144 Potassium, Serum 4.2 mmol/L 3.5-5.2 Chloride, Serum 101 mmol/L 96-106 Carbon Dioxide, Total 26 mmol/L 18-29 Calcium, Serum 9.6 mg/dL 8.7-10.2 Protein, Total, Serum 6.9 g/dL 6.0-8.5 Albumin, Serum 4.2 g/dL 3.5-5.5 Globulin, Total 2.7 g/dL 1.5-4.5 A/G Ratio 1.6 1.2-2.2 Bilirubin, Total 0.5 mg/dL 0.0-1.2 Alkaline Phosphatase, S 85 IU/L 39-117 AST (SGOT) 14 IU/L 0-40 ALT (SGPT) 26 IU/L 0-44 Sedimentation Rate-Westergren - 03/24/17 12:05 [facility] 0-15 Complete blood count (CBC) with automated white blood cell (WBC) differential - 10/02/17 05:50 Blood leukocytes automated count (number/volume) 10.4 10*3/uL 4.3-11.0 Blood erythrocytes automated count (number/volume) 4.92 10*6/uL 4.35-5.85 Venous blood hemoglobin measurement (mass/volume) 14.1 g/dL 13.3-17.7 Blood hematocrit (volume fraction) 43 % 40-54 Automated erythrocyte mean corpuscular volume 87 [foz_us] 80-99 Automated erythrocyte mean corpuscular hemoglobin (mass per erythrocyte) 29 pg 25-34 Automated erythrocyte mean corpuscular hemoglobin concentration measurement ( mass/volume) 33 g/dL 32-36 Automated erythrocyte distribution width ratio 12.8 % 10.0-14.5 Automated blood platelet count (count/volume) 248 10*3/uL 130-400 Automated blood platelet mean volume measurement 10.4 [foz_us] 7.4-10.4 Automated blood neutrophils/100 leukocytes 56 % 42-75 Automated blood lymphocytes/100 leukocytes 28 % 12-44 Blood monocytes/100 leukocytes 12 % 0-12 Automated blood eosinophils/100 leukocytes 4 % 0-10 Automated blood basophils/100 leukocytes 0 % 0-10 Blood neutrophils automated count (number/volume) 5.8 10*3 1.8-7.8 Blood lymphocytes automated count (number/volume) 2.9 10*3 1.0-4.0 Blood monocytes automated count (number/volume) 1.2 10*3 0.0-1.0 Automated eosinophil count 0.5 10*3/uL 0.0-0.3 Automated blood basophil count (count/volume) 0.0 10*3/uL 0.0-0.1 Comprehensive metabolic panel - 10/02/17 05:50 Serum or plasma sodium measurement (moles/volume) 142 mmol/L 135-145 Serum or plasma potassium measurement (moles/volume) 3.3 mmol/L 3.6-5.0 Serum or plasma chloride measurement (moles/volume) 102 mmol/L 98-107 Carbon dioxide 31 mmol/L 21-32 Serum or plasma anion gap determination (moles/volume) 9 mmol/L 5-14 Serum or plasma urea nitrogen measurement (mass/volume) 8 mg/dL 7-18 Serum or plasma creatinine measurement (mass/volume) 1.02 mg/dL 0.60-1.30 Serum or plasma urea nitrogen/creatinine mass ratio 8 NRG Serum or plasma creatinine measurement with calculation of estimated glomerular filtration rate > NRG Serum or plasma glucose measurement (mass/volume) 95 mg/dL 70-105 Serum or plasma calcium measurement (mass/volume) 9.2 mg/dL 8.5-10.1 Serum or plasma total bilirubin measurement (mass/volume) 1.0 mg/dL 0.1-1.0 Serum or plasma alkaline phosphatase measurement (enzymatic activity/volume) 66 U/L 40-136 Serum or plasma aspartate aminotransferase measurement (enzymatic activity/ volume) 15 U/L 5-34 Serum or plasma alanine aminotransferase measurement (enzymatic activity/volume ) 21 U/L 0-55 Serum or plasma protein measurement (mass/volume) 6.8 g/dL 6.4-8.2 Serum or plasma albumin measurement (mass/volume) 4.0 g/dL 3.2-4.5 Magnesium - 10/02/17 05:50 Magnesium 2.2 mg/dL 1.8-2.4 Serum or plasma creatine kinase measurement (enzymatic activity/volume) - 10/02 05:50 Serum or plasma creatine kinase measurement (enzymatic activity/volume) 277 U/L 30-200 Complete blood count (CBC) with automated white blood cell (WBC) differential - 10/04/17 08:20 Blood leukocytes automated count (number/volume) 9.4 10*3/uL 4.3-11.0 Blood erythrocytes automated count (number/volume) 4.80 10*6/uL 4.35-5.85 Venous blood hemoglobin measurement (mass/volume) 13.6 g/dL 13.3-17.7 Blood hematocrit (volume fraction) 42 % 40-54 Automated erythrocyte mean corpuscular volume 88 [foz_us] 80-99 Automated erythrocyte mean corpuscular hemoglobin (mass per erythrocyte) 28 pg 25-34 Automated erythrocyte mean corpuscular hemoglobin concentration measurement ( mass/volume) 32 g/dL 32-36 Automated erythrocyte distribution width ratio 13.0 % 10.0-14.5 Automated blood platelet count (count/volume) 235 10*3/uL 130-400 Automated blood platelet mean volume measurement 10.0 [foz_us] 7.4-10.4 Automated blood neutrophils/100 leukocytes 59 % 42-75 Automated blood lymphocytes/100 leukocytes 27 % 12-44 Blood monocytes/100 leukocytes 13 % 0-12 Automated blood eosinophils/100 leukocytes 2 % 0-10 Automated blood basophils/100 leukocytes 0 % 0-10 Blood neutrophils automated count (number/volume) 5.5 10*3 1.8-7.8 Blood lymphocytes automated count (number/volume) 2.5 10*3 1.0-4.0 Blood monocytes automated count (number/volume) 1.2 10*3 0.0-1.0 Automated eosinophil count 0.2 10*3/uL 0.0-0.3 Automated blood basophil count (count/volume) 0.0 10*3/uL 0.0-0.1 Fibrin D-dimer FEU measurement in platelet poor plasma (mass/volume) - 08:20 Fibrin D-dimer FEU measurement in platelet poor plasma (mass/volume) 0.30 ug/mL 0.00-0.49 Comprehensive metabolic panel - 10/04/17 08:20 Serum or plasma sodium measurement (moles/volume) 143 mmol/L 135-145 Serum or plasma potassium measurement (moles/volume) 3.0 mmol/L 3.6-5.0 Serum or plasma chloride measurement (moles/volume) 103 mmol/L 98-107 Carbon dioxide 30 mmol/L 21-32 Serum or plasma anion gap determination (moles/volume) 10 mmol/L 5-14 Serum or plasma urea nitrogen measurement (mass/volume) 7 mg/dL 7-18 Serum or plasma creatinine measurement (mass/volume) 1.01 mg/dL 0.60-1.30 Serum or plasma urea nitrogen/creatinine mass ratio 7 NRG Serum or plasma creatinine measurement with calculation of estimated glomerular filtration rate > NRG Serum or plasma glucose measurement (mass/volume) 98 mg/dL 70-105 Serum or plasma calcium measurement (mass/volume) 8.9 mg/dL 8.5-10.1 Serum or plasma total bilirubin measurement (mass/volume) 0.9 mg/dL 0.1-1.0 Serum or plasma alkaline phosphatase measurement (enzymatic activity/volume) 59 U/L 40-136 Serum or plasma aspartate aminotransferase measurement (enzymatic activity/ volume) 18 U/L 5-34 Serum or plasma alanine aminotransferase measurement (enzymatic activity/volume ) 26 U/L 0-55 Serum or plasma protein measurement (mass/volume) 6.4 g/dL 6.4-8.2 Serum or plasma albumin measurement (mass/volume) 3.7 g/dL 3.2-4.5 Serum or plasma C reactive protein measurement (mass/volume) - 10/04/17 08:20 Serum or plasma C reactive protein measurement (mass/volume) 0.24 mg /dL 0.00-0.50 Erythrocyte sedimentation rate by westergren method - 10/04/17 08:20 Erythrocyte sedimentation rate by westergren method 7 mm 0-15 Encounters ACCT No. Visit Date/Time Discharge Status Pt. Type Provider Facility Loc./Unit Complaint [id number] 11/29/2014 16:57:00 11/29/2014 23:59:59 [facility] Outpatient SHANNA DE LA VEGA DO [id number] 10/23/2014 00:00:00 10/23/2014 23:59:59 [facility] Outpatient ANA MARIA JARAMILLO PHD [id number] 09/28/2014 13:49:00 09/28/2014 23:59:59 CLS Outpatient ANA MARIA JARAMILLO PHD [id number] 08/29/2014 09:56:00 08/29/2014 23:59:59 CLS Outpatient JUNE TAMAYO APRN [id number] 08/11/2014 09:06:00 08/11/2014 23:59:59 CLS Outpatient ANA MARIA JARAMILLO PHD [id number] 06/27/2014 09:09:00 06/27/2014 23:59:59 CLS Outpatient JUNE TAMAYO APRN [id number] 06/17/2014 16:17:00 06/17/2014 23:59:59 CLS Outpatient JUNE TAMAYO APRN [id number] 03/25/2017 09:08:00 Document Registration [id number] 12/11/2016 18:05:00 Document Registration [id number] 05/26/2014 11:50:41 05/26/2014 23:59:00 DIS Outpatient DEANN WILLOUGHBY [facility] FLBO [id number] 05/03/2014 18:21:00 05/03/2014 19:29:00 DIS Emergency [facility] FED [id number] 05/31/2014 06:43:31 ACT Document Registration [id number] 04/29/2018 16:40:00 04/29/2018 23:59:59 CLS Outpatient JUNE TAMAYO APRN [facility] [place] [id number] 10/08/2017 08:12:00 10/08/2017 09:57:00 DIS Emergency TAMI VICKERS MD [facility] ER BURNING LEFT SIDE, AUTO IMMUNE DISEASE [id number] 10/04/2017 06:50:00 10/04/2017 09:53:00 DIS Emergency MAURY ROJO MD [facility] ER AUTO IMMUNE DISEASE [id number] 10/02/2017 06:40:00 10/02/2017 09:10:00 DIS Emergency MAURY ROJO MD [facility] ER LEG PARALYSIS [id number] 02/17/2017 16:10:00 02/17/2017 17:20:00 DIS Emergency TED VELA [facility] ER DENTAL PAIN [id number] 12/02/2016 06:34:00 12/02/2016 08:10:00 DIS Emergency MAURY ROJO MD [facility] ER NOT FEELING WELL [id number] 11/18/2016 11:41:00 11/18/2016 13:42:00 DIS Emergency NARESH MATHIS APRN [facility] ER DENTAL PAIN [id number] 10/31/2016 13:59:00 10/31/2016 15:27:00 DIS Emergency NARESH MATHIS APRN [facility] ER VOMITING/NAUSEA SORE THROAT [id number] 10/24/2016 18:50:00 10/24/2016 19:38:00 DIS Emergency NARESH MATHIS APRN [facility] ER CONGESTION,COLD SYMPTOMS [id number] 06/26/2016 17:14:00 06/26/2016 20:15:00 DIS Emergency MAURY ROJO MD [facility] ER KIDNEY STONE [id number] 06/17/2016 09:45:00 06/17/2016 12:31:00 DIS Emergency TED VELA [facility] ER DENTAL PAIN/FACIAL SWELLING [id number] 04/15/2016 04:15:00 04/16/2016 12:30:00 DIS Inpatient JOSH EDMONDSON MD [facility] 4TH RHABDOMYLYSIS [id number] 10/09/2015 14:31:00 10/09/2015 17:30:00 DIS Emergency TED VELA [facility] ER SORE THROAT [id number] 08/07/2014 12:58:00 08/07/2014 15:34:00 DIS Emergency NARESH MATHIS APRN [facility] ER KNEE PAIN [id number] 06/25/2014 01:05:00 06/25/2014 02:30:00 DIS Emergency MEGA ALBA MD [facility] ER SOB,PAIN ALL OVER [id number] 06/15/2014 23:59:00 06/16/2014 01:44:00 DIS Emergency RANCHO AMAYA, TAMI Russell [facility] ER THROAT SWELLING [id number] 06/14/2014 18:02:00 06/14/2014 19:49:00 DIS Emergency NARESH MATHIS APRN [facility] ER DIFFICULTY BREATHING, GENERAL SWELLING
[2018-10-18] MEDS ORDERED: PRD20T PO (09:12)
[2018-10-18] MEDS ORDERED: RT-ALBUINH IH (09:12)
--- NOTE | 2018-10-18 09:12 | ED General ---
General Chief Complaint: Cough/Cold/Flu Symptoms Stated Complaint: ASTHMA Nursing Triage Note: TO ED PER EMS FROM HOME REPORTS HAS BEEN CONGESTED FOR 2 DAYS HAS NO INHAL Nursing Sepsis Screen: No Definite Risk Source of Information: Patient, EMS, Old Records Exam Limitations: No Limitations History of Present Illness Date Seen by Provider: Oct 18, 2018 Time Seen by Provider: 08:41 Initial Comments This 28-year-old man presents to the emergency room via EMS with complaints of upper airway congestion. He also has asthma and is out of his inhaler. He has not been particularly wheezy or short of breath but just feels congested. EMS reports no wheezing on their assessment. They delivered no treatments. He also states he has some type of chronic autoimmune disorder requiring him to take prednisone daily. He states the autoimmune disorder causes him to have seizures. He is out of the prednisone as well. He has a follow-up appointment in early October but has no access to medications until then. He sees Pascual Noel at [facility]. He cannot give a name for his autoimmune diagnosis. Allergies and Home Medications Allergies Coded Allergies: No Known Drug Allergies (Unverified , 06/14/14) Home Medications Albuterol Sulfate 1 Puff Puff, 2 PUFF IH Q4H 1 PUFF = 90 MCG Prescribed by: TAMI NAVA on 10/18/18911 Prednisone 20 Mg Tab, 1 TAB PO DAILY Prescribed by: TAMI NAVA on 10/18/18 09 Patient Home Medication List Home Medication List Reviewed: Yes Review of Systems Review of Systems Constitutional: no symptoms reported EENTM: see HPI Respiratory: see HPI Cardiovascular: no symptoms reported Gastrointestinal: no symptoms reported Genitourinary: no symptoms reported Musculoskeletal: see HPI Skin: no symptoms reported Psychiatric/Neurological: No Symptoms Reported Hematologic/Lymphatic: No Symptoms Reported Immunological/Allergic: see HPI Past Dqwzckf-Oquutj-Xrkjht Hx Past Med/Social Hx: Reviewed and Corrections made Patient Social History Alcohol Use: Denies Use Recreational Drug Use: No Smoking Status: Former Smoker Type Used: Cigarettes Former Smoker, Quit: Dec 25, 2015 Recent Foreign Travel: No Contact w/Someone Who Travel: No Recent Infectious Disease Expo: No Recent Hopitalizations: No Immunizations Up To Date Tetanus Booster (TDap): Less than 5yrs Date of Pneumonia Vaccine: Apr 25, 2014 Date of Influenza Vaccine: Jul 25, 2013 Seasonal Allergies Seasonal Allergies: Yes Past Medical History Surgeries: Yes (DENTAL SURG) Respiratory: Yes Asthma Cardiac: No Neurological: Yes (reported muscular disorder but unknown name) Seizure Disorder Reproductive Disorders: No Sexually Transmitted Disease: No HIV/AIDS: No Gastrointestinal: No Musculoskeletal: Yes (autoimmune disorder, nonspecified, history of nontraumatic rhabdomyolysis and muscle weakness, no follow-up due to finances) Endocrine: No HEENT: No Cancer: No Psychosocial: Yes (adjustment disorder) Depression Integumentary: No Blood Disorders: No Family Medical History Patient reports no known family medical history. No Pertinent Family Hx Physical Exam Vital Signs Vital Signs - First Documented 10/18/18 08:40 Temp 99.0 Pulse 86 Resp 18 B/P (MAP) 128/86 (100) Pulse Ox 100 O2 Delivery Room Air Capillary Refill : Less Than 3 Seconds Height, Weight, BMI Height: 5'11.00" Weight: 150lbs. 4.0oz. 68.964648rh; 27.1 BMI Method:Stated General Appearance: No Apparent Distress, WD/WN HEENT: PERRL/EOMI, TMs Normal, Normal ENT Inspection, Other (pharynx hyperemic) Neck: Normal Inspection Respiratory: No Accessory Muscle Use, No Respiratory Distress, Wheezing ( inspiratory wheezes without stridor), Other (delayed expiratory phase with decreased airflow) Cardiovascular: Regular Rate, Rhythm, No Edema, No Murmur Extremity: Normal Inspection, No Pedal Edema Neurologic/Psychiatric: Alert, Oriented x3, No Motor/Sensory Deficits, Normal Mood/Affect, side panel hanger II-XII Norm as Tested Skin: Normal Color, Warm/Dry Progress/Results/Core Measures Suspected Sepsis Recent Fever Within 48 Hours: No Infection Criteria Present: None New/Unexplained Altered Menta: No Sepsis Screen: No Definite Risk SIRS Temperature:99.0 Pulse: 86 Respiratory Rate: 18 Blood Pressure 128 /86 Mean: 100 Results/Orders My Orders Orders - TAMI VICKERS MD Albuterol/Ipra Inhalation Soln (Duoneb I (10/18/18 08:45) Svn Small Volume Nebulizer (10/18/18 08:44) Medications Given in ED Current Medications Medications Dose Ordered Sig/Wilfred Route Start Time Stop Time Status Last Admin Dose Admin Albuterol/ Ipratropium 3 ml ONCE ONCE INH 10/18/18 08:45 11/25/18 08:46 DC 10/18/18 09:04 3 ML Vital Signs/I&O 10/18/18 10/18/18 10/18/18 08:40 09:04 09:17 Temp 99.0 Pulse 86 77 Resp 18 18 B/P (MAP) 128/86 (100) 130/81 (97) Pulse Ox 100 100 100 O2 Delivery Room Air Room Air Capillary Refill : Less Than 3 Seconds Blood Pressure Mean: 100 Progress Note : Progress Note Patient felt much improved after a DuoNeb treatment. He was prescribed a week' s worth of his prednisone and a pro-air inhaler. I discussed patient's chronic autoimmune issue with Dr. Rich. She reviewed the chart and notes he has not followed up with specialty services due to finances. He was once placed on high -dose prednisone years ago and has been tapered down since then. An official diagnosis is not available in his chart. [place] police was aware of patient' s presence in the ER prior to his arrival. PD took him in their custody after his discharge. Departure Impression Primary Impression: Asthma exacerbation Qualified Codes: J45.901 - Unspecified asthma with (acute) exacerbation Additional Impression: Congestion of upper respiratory tract Disposition: 21 DIS/X[address]/LAW ENFORCE Condition: Improved Departure-Patient Inst. Decision time for Depature: 09:10 Referrals: [facility] [place] Primary Care Physician Patient Instructions: Asthma in Adults Add. Discharge Instructions: A short-term prescription for prednisone has been provided. You'll need to contact your primary care provider for any further treatment with prednisone. Use your inhaler as prescribed. Return to care if you have any further problems or concerns. Follow-up with your primary care provider soon as possible. All discharge instructions reviewed with patient and/or family. Voiced understanding. Scripts Albuterol Sulfate (PROAIR HFA) 1 Puff Puff 2 PUFF IH Q4H, #1 PUFF 1 PUFF = 90 MCG Prov: TAMI VICKERS MD 10/18/18 Prednisone (Prednisone) 20 Mg Tab 1 TAB PO DAILY, #7 TAB Prov: TAMI VICKERS MD 10/18/18 Copy Copies To 1: GUILLERMINA RICH MD, JOSHUA T MD Oct 18, 2018 09:12
[2018-10-18 09:17] VITALS: BP 130/81
== END 2018-10-18 09:17 | disposition home or self-care (01) ==
LOC: EDUNIT# 08:40 → ER 08:41
DX: J45.901 Unspecified asthma with (acute) exacerbation (principal); J98.8 Other specified respiratory disorders; G40.909 Epilepsy, unspecified, not intractable, without status epilepticus; M62.82 Rhabdomyolysis; F32.9 Major depressive disorder, single episode, unspecified; Z79.51 Long term (current) use of inhaled steroids; Z79.52 Long term (current) use of systemic steroids; Z87.891 Personal history of nicotine dependence
CPT/HCPCS: 94640; 99283

== ENCOUNTER 2019-03-05 05:23 | Emergency (ER) | payer SELFPAY ==
[~2019-03-05] VITALS: Ht 180.3 cm; Wt 68.2 kg
--- OUTSIDE RECORDS SUMMARY | 2019-03-05 05:28 | XMS REPORT | Clinical Summary ---
Author Author [facility] Address Unknown Phone Unavailable Care Team Providers Care Landfill Grader Name Role Phone Mello Yao MD Unavailable [facility] PP Mello Yao MD Unavailable Allergies No Known Allergies Medications End Date Status Medication Sig Dispensed Refills Start Date Active hydrocodone-acetaminophen Take 1 tablet 30 tablet 0 (NORCO) 5-325 MG by mouth 4 every 6 (six) hours as needed for Pain. Active ferrous sulfate Take 1 tablet 90 tablet 3 (ROCHELLE-IN-JAISON) 325 (65 FE) (325 mg 4 MG tabletIndications: total) by Iron Deficiency Anemia mouth 3 (three) times daily with meals. Indications: Anemia From Inadequate Iron in the Body Active senna-docusate Take 1 tablet 30 tablet 6 (PERICOLACE) 8.6-50 MG by mouth 4 nightly. Active predniSONE (DELTASONE) 5 Take by mouth 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 Myalgia 05/30/2014 Iron deficiency anemia due to dietary causes 05/14/2014 Weakness of both legs 05/13/2014 Acute viral syndrome 05/13/2014 Leg weakness, bilateral 05/13/2014 Ascending paralysis 05/13/2014 Immunizations Name Dates Previously Given Next [...] Alive Paternal Grandmother Paternal Uncle Social History Date Tobacco Use Types Packs/Day Years Used Quit: 03/24/2014 Former Smoker 0.25 4 Smokeless Tobacco: Never Used Alcohol Use Drinks/Week oz/Week Comments No 0.0 socially Sex Assigned at Date Recorded Not on file Industry Job Start Date Occupation Not on file Not on file Not on file Travel End Travel History Travel Start No recent travel history available. Last Filed Vital Signs Time Taken Vital Sign Reading 05/30/2014 1:44 PM CDT Blood Pressure 132/80 05/20/2014 10:32 AM CDT Pulse 96 05/20/2014 10:32 AM CDT Temperature 36.3 C (97.3 F) 05/14/2014 9:11 AM CDT Respiratory Rate 20 05/14/2014 9:11 AM CDT Oxygen Saturation 100% - Inhaled Oxygen - Concentration 05/30/2014 1:44 PM CDT Weight 68.5 kg (151 lb) 05/30/2014 1:44 PM CDT Height 180.3 cm (5' 11") 05/30/2014 1:44 PM CDT Body Mass Index 21.06 Plan of Treatment Health Maintenance Due Date Last Done Comments Varicella Vaccines (1 of 2003 2 - 13+ 2-dose series) Influenza Vaccine (Season 07/25/2019 Ended) DTaP,Tdap,and Td Vaccines 02/20/2024 02/19/2014 (2 - Td) Results Not on filefrom Last 3 Months Advance Directives Patient has advance care planning documents, and code status on file. For more information, please contact: [address] [address] Date Inactivated Comments Code Status Date Activated 05/14/2014 8:18 PM Full Code 05/13/2014 1:58 PM
[2019-03-05] MEDS ORDERED: LIDOCAINE 1% INJ 20 ML 20 ML VIAL INJ ONE (05:30)
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
--- OUTSIDE RECORDS SUMMARY | 2019-03-05 05:30 | XMS REPORT ---
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 Active 189096389 ALLERGIES No Information ENCOUNTERS Encounter Location Date Diagnosis [facility] [address] [address] 25 Dec, 2018 Seizures R56.9 ; Vision changes H53.9 and Contusion of face , initial encounter S00.83XA [facility] [address] [address]- [address] Sep, [facility] [address] [address]- [address] Sep, Back pain, lumbosacral M54.5 [facility] [id number] [place] [address] 30929- 8785 17 Jul, 2018 [facility] [address] [address]- [address] 13 Jul, 2018 [facility] [id number] [place] [address] 25646- 5164 Jul, [facility] [address] [address]- 68[address] Jul, [facility] [address] [address]- 9878 Jun, [facility] [address] [address]11- 0398 Apr, Back pain, lumbosacral M54.5 and Weight loss R63.4 [facility] [id number] [place] [address] 17479- 1382 Jan, [facility] [id number] [place] [address] 82336- 5470 Sep, Adjustment disorder with depressed mood F43.21 [facility] [address] 36522- 0481 Sep, Seizures R56.9 [facility] [id number] [place] [address] 75795- 7640 Sep, [facility] [id number] [place] [address] 94450- 4551 Jul, Adjustment disorder with depressed mood F43.21 and Other chronic pain G89.29 [facility] [id number] [place] [address] 55893- 6356 Jun, Non-traumatic rhabdomyolysis M62.82 [facility] [id number] [place] [address] 56227- 9301 Apr, [facility] [id number] [place] [address] 35114- 8210 Apr, Weakness R53.1 [facility] [id number] [place] [address] 16607- 7521 March, Weakness R53.1 [facility] [id number] [place] [address] 01361- 4079 March, [facility] [id number] [place] [address] 70454- 5113 March, Weakness R53.1 [facility] [id number] [place] [address] 23858- 2317 Feb, [facility] [id number] [place] [address] 16976- 1947 Feb, Weakness R53.1 [facility] [id number] [place] [address] 96154- 0891 Feb, Weakness R53.1 [facility] [id number] [place] [address] [id number] Jan, Dental caries K02.9 [facility] [id number] [place] [address] [id number] Jan, Dental examination Z01.20 [facility] [id number] [place] [address] 80213- 6290 Dec, [facility] [id number] [place] [address] 32818- 7228 Dec, [facility] [id number] [place] [address] 59563- 0470 Nov, [facility] [id number] [place] [address] 96347- 7396 Nov, [facility] [id number] [place] [address] 31542- 3232 Nov, [facility] [id number] [place] [address] 50103- 2662 Nov, [facility] [id number] [place] [address] 66495- 8861 Nov, Weakness R53.1 and 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 [facility] [id number] [place] [address] 15548- 8378 Nov, [facility] [id number] [place] [address] 16641- 2055 Oct, [facility] [id number] [place] [address] 920346- 2886 Jul, [facility] [id number] [place] [address] 042405- 2116 May, [facility] [id number] [place] [address] 68568- 8218 Apr, [facility] [id number] [place] [address] 74938- 2535 March, Seizures R56.9 and Neuropathy G62.9 [facility] [id number] [place] [address] 42138- 4820 March, [facility] [id number] [place] [address] 14026- 4724 March, [facility] [id number] [place] [address] 15119- 4849 March, Polyarthralgia M25.50 [facility] [id number] [place] [address] 66756- 0966 Jan, Muscle cramp R25.2 [facility] [id number] [place] [address] 38550- 9708 Jan, [facility] [id number] [place] [address] 65691- 5604 Dec, [facility] [id number] [place] [address] 42766- 1261 Oct, Muscle cramp R25.2 [facility] [id number] [place] [address] 02591- 9040 Oct, [facility] [id number] [place] [address] 83843- 8099 Jul, [facility] [id number] [place] [address] 29348- 3786 Jun, [facility] [id number] [place] [address] 26900- 6756 Jun, [facility] [id number] [place] [address] 832921- 1447 May, Muscle cramp 729.82 [facility] [id number] [place] [address] 99033- 9507 May, Anxiety state, unspecified 300.00 [facility] [address] [address]- 9524 Apr, [facility] [id number] [place] [address] 13052- 8324 Apr, Anxiety state 300.00 ; Cognitive decline 294.9 and [place] diagnosis deferred 799.9 [facility] [id number] [place] [address] 51436- 4015 March, [facility] [id number] [place] [address] 33982- 3056 March, [facility] [id number] [place] [address] 85649- 0701 March, Neuropathy 355.9 and Cognitive disorder 294.9 [facility] [id number] [place] [address] 10134- 9648 March, Neuropathy 355.9 and Cognitive disorder 294.9 [facility] [id number] [place] [address] 51426- 5884 March, Spasm of muscle 728.85 ; Memory loss 780.93 and Tremor of both hands 781.0 [facility] [address] [address]- 4047 March, [facility] [address] [address]- 4106 Feb, [facility] [id number] [address]- 0320 Feb, [facility] [address] [address]- 0784 Dec, [facility] [id number] [place] [address] 613415- 5165 Dec, [facility] [address] 3196 Dec, [facility] [id number] [place] [address]- 0263 Dec, [facility] [place] [facility] [address] [id number] [place] [address]- 6360 Nov, [facility] [place] [facility] [address] [id number] [place] [address]- 2782 Nov, [facility] [place] [facility] [address] [id number] [place] [address]- 1348 Nov, [facility] [place] [facility] [address] [id number] [place] [address]- 9488 Nov, [facility] [place] [facility] [address] [id number] [place] [address]- 5378 Nov, [facility] [place] [facility] [address] [id number] [place] [address]- 3933 Nov, [facility] [place] [facility] [address] [id number] [place] [address]- 1996 Oct, [facility] [place] [facility] [address] [id number] [place] [address]- 8448 Oct, [facility] [place] [facility] [address] [id number] [place] [address]- 2409 Sep, [facility] [place] [facility] [address] [facility] [id number] [place] [address]- 8632 Sep, [facility] [place] [facility] [address] [id number] [place] [address]- 3397 Sep, [facility] [place] [facility] [address] [id number] [place] [address]- 6462 Sep, [facility] [place] [facility] [address] [id number] [place] [address]- 6117 Aug, [facility] [place] [facility] [address] [id number] [place] [address]- 7898 Aug, [facility] [place] [facility] [address] [id number] [place] [address]- 1922 Aug, [facility] [place] [facility] [address] [id number] [place] [address]- 8789 Aug, 2013 [facility] [place] [facility] [address] [id number] [place] [address]- 8023 Aug, 2013 [facility] [place] [facility] [address] [id number] [place] [address]- 9921 Aug, 2013 [facility] [place] [facility] [address] [id number] [place] [address]- 5445 Aug, 2013 [facility] [place] [facility] [address] [id number] [place] [address]- 3843 Aug, [facility] [place] [facility] [address] [id number] [place] [address]- 8802 Aug, [facility] [place] [facility] [address] [id number] [place] [address]- 1125 Aug, [facility] [place] [facility] [address] [id number], [place] [address]- 2582 Aug, [facility] [place] [facility] [address] [id number] [place] [address]- 4739 Aug, [facility] [place] [facility] [address] [id number], [place] [address]- 6772 Aug, [facility] [place] [facility] [address] [id number] [address]- 3756 30 Jul, 2013 [facility] [place] [facility] [address] [id number], [place] [address]- 8631 18 Sep, 2013 [facility] [place] [facility] [address] [id number] [place] [address]- 6555 18 Sep, 2013 [facility] [place] [facility] [address] [id number], [place] [address]- 9106 03 Sep, 2013 [facility] [place] [facility] [address] [id number] [address]- 1689 03 Sep, 2013 [facility] [place] [facility] [id number] [address]- 3850 Jun, [facility] [address] [facility] [id number], [place] [address]- 0034 Jun, [facility] [address] [facility] [id number], [place] [address]- 5660 Jun, [facility] [address] [facility] [id number] [address]- 9640 Jun, [facility] [address] [facility] [id number], [place] [address]- 8665 Jun, [facility] [address] [facility] [id number], [place] [address]- 8579 Jun, [facility] [address] [facility] [id number] [address]- 7257 May, [facility] [address] [address]- 7486 May, [facility] [id number] [address]- 7420 May, [facility] [address] [address]- 5509 May, [facility] [id number] [address]- 8447 May, IMMUNIZATIONS No Known Immunizations SOCIAL HISTORY Never Assessed REASON FOR VISIT [facility] PLAN OF CARE VITAL SIGNS MEDICATIONS Medication Instructions Dosage Frequency Start Date End Date Duration Status ProAir HFA 90 mcg/actuation 2 puffs by Inhalation route 4 times per day May, Active PredniSONE 20 mg 2 tablet by Oral route 1 time per day for 5 day(s) May, Active RESULTS No Results PROCEDURES No Known procedures INSTRUCTIONS MEDICATIONS ADMINISTERED No Known Medications MEDICAL (GENERAL) HISTORY Type Description Date Medical History asthma Medical History chronic pain Medical History polymyalgia/polyarthralgia Hospitalization History auto immune 2012 Hospitalization History Rhabdomylysis 04/15/16
--- OUTSIDE RECORDS SUMMARY | 2019-03-05 05:30 | XMS REPORT ---
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 [address] [address] 25 Dec, 2018 Seizures R56.9 ; Vision changes H53.9 and Contusion of face , initial encounter S00.83XA [facility] [address] [address] Sep, [facility] [address] [address]- [address]68 Sep, Back pain, lumbosacral M54.5 [facility] [id number] [place] [address] 95423- 0120 17 Jul, 2018 [facility] [address] [address]- 1204 13 Jul, 2018 [facility] [id number] [place] [address] 46878- 0079 Jul, [facility] [address] [address]- [address]17 Jul, [facility] [address] 97747- 6564 Jun, [facility] [address] 81077- 0837 Apr, Back pain, lumbosacral M54.5 [address]4 [facility] [id number] [place] [address] 35193- 9779 Jan, [facility] [id number] [place] [address] 82125- 9056 Sep, Adjustment disorder with depressed mood F43.21 [facility] [address] 90711- 0218 Sep, Seizures R56.9 [facility] [id number] [place] [address] 79952- 1247 Sep, [facility] [id number] [place] [address] 98251- 6966 Jul, Adjustment disorder with depressed mood F43.21 and Other chronic pain G89.29 [facility] [id number] [place] [address] 46432- 6675 Jun, Non-traumatic rhabdomyolysis M62.82 [facility] [id number] [place] [address] 39861- 8850 Apr, [facility] [id number] [place] [address] 39772- 3764 Apr, Weakness R53.1 [facility] [id number] [place] [address] 11885- 8386 March, Weakness R53.1 [facility] [id number] [place] [address] 97950- 9169 March, [facility] [id number] [place] [address] 76355- 1989 March, Weak[address]1 [facility] [id number] [place] [address] 50839- 4510 Feb, [facility] [id number] [place] [address] 31141- 6355 Feb, Weakness R53.1 [facility] [id number] [place] [address] 36098- 8270 Feb, Weakness R53.1 [facility] [id number] [place] [address] [id number] Jan, Dental caries K02.9 [facility] [id number] [place] [address] [id number] Jan, Dental examination Z01.20 [facility] [id number] [place] [address] 62624- 1724 Dec, [facility] [id number] [place] [address] 14773- 9133 Dec, [facility] [id number] [place] [address] 06592- 5156 Nov, [facility] [id number] [place] [address] 27282- 7731 Nov, [facility] [id number] [place] [address] 02222- 6235 Nov, [facility] [id number] [place] [address] 17213- 8387 Nov, 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 [id number] [place] [address] 35173- 0068 Nov, [facility] [id number] [place] [address] 39968- 6949 Oct, [facility] [id number] [place] [address] 250790- 3576 Jul, [facility] [id number] [place] [address] 353649- 2317 May, [facility] [id number] [place] [address] 27494- 6028 Apr, [facility] [id number] [place] [address] 86590- 1070 March, Seizures R56.[address] [facility] [id number] [place] [address] 72106- 6093 March, [facility] [id number] [place] [address] 37347- 3956 March, [facility] [id number] [place] [address] 32243- 2403 March, Polyarthralgia M25.50 [facility] [id number] [place] [address] 84092- 6044 Jan, Muscle cramp R25.2 [facility] [id number] [place] [address] 08370- 8732 Jan, [facility] [id number] [place] [address] 47647- 1852 Dec, [facility] [id number] [place] [address] 42571- 9755 Oct, Muscle cramp R25.2 [facility] [id number] [place] [address] 42914- 7202 Oct, [facility] [id number] [place] [address] 42336- 6299 Jul, [facility] [id number] [place] [address] 15467- 2431 Jun, [facility] [id number] [place] [address] 95634- 3856 Jun, [facility] [id number] [place] [address] 006386- 6270 May, Muscle cramp 729.82 [facility] [id number] [place] [address] 55836- 7648 May, Anxiety state, unspecified 300.00 [facility] [address] [address]- 64[address] Apr, [facility] [id number] [place] [address] 62316- 3908 Apr, Anxiety state 300.00 ; Cognitive decline 294.9 and [place] II diagnosis deferred 799.9 [facility] [id number] [place] [address] 49395- 5618 March, [facility] [id number] [place] [address] 99050- 2621 March, [facility] [id number] [place] [address] 94939- 3308 March, Neuropathy 355.9 and Cognitive disorder 294.9 [facility] [id number] [place] [address] 96023- 2237 March, Neuropathy 355.9 and Cognitive disorder 294.9 [facility] [id number] [place] [address] 82280- 9269 March, Spasm of muscle 728.85 ; Memory loss 780.93 and Tremor of both hands 781.0 [facility] [address] [address]- 8[address] March, [facility] [address] [place] [address]- [address] Feb, [facility] [id number] [place] [address]- 0568 Feb, [facility] [address] [place] [address]- 8105 Dec, [facility] [id number] [place] [address] 861386- 0065 Dec, [facility] [address] [address] Dec, [facility] [id number] [place] [address]- 8823 Dec, [facility] [place] [facility] [address] [id number] [place] [address]- 0569 Nov, [facility] [place] [facility] [address] [id number] [place] [address]- 6566 Nov, [facility] [place] [facility] [address] [id number] [place] [address]- 3631 Nov, [facility] [place] [facility] [address] [id number] [place] [address]- 0803 Nov, [facility] [place] [facility] [address] [id number] [place] [address]- 2470 Nov, [facility] [place] [facility] [address] [id number] [place] [address]- 1437 Nov, [facility] [place] [facility] [address] [id number] [place] [address]- 0756 Oct, [facility] [place] [facility] [address] [id number] [place] [address]- 7161 Oct, [facility] [place] [facility] [address] [id number] [place] [address]- 9191 Sep, [facility] [place] [facility] [address] [facility] [id number] [place] [address]- 4977 Sep, [facility] [place] [facility] [address] [id number] [place] [address]- 5955 Sep, [facility] [place] [facility] [address] [id number] [place] [address]- 3357 Sep, [facility] [place] [facility] [address] [id number] [place] [address]- 0969 Aug, [facility] [place] [facility] [address] [id number] [place] [address]- 2825 Aug, [facility] [place] [facility] [address] [id number] [place] [address]- 9972 Aug, [facility] [place] [facility] [address] [id number] [place] [address]- 9024 Aug, 2013 [facility] [place] [facility] [address] [id number] [place] [address]- 7329 Aug, 2013 [facility] [place] [facility] [address] [id number] [place] [address]- 1269 Aug, 2013 [facility] [place] [facility] [address] [id number] [place] [address]- 9218 Aug, 2013 [facility] [place] [facility] [address] [id number] [place] [address]- 6780 Aug, [facility] [place] [facility] [address] [id number] [place] [address]- 1020 Aug, [facility] [place] [facility] [address] [id number] [place] [address]- 5835 Aug, [facility] [place] [facility] [address] [id number], [place] [address]- 3215 Aug, [facility] [place] [facility] [address] [id number] [place] [address]- 0186 Aug, [facility] [place] [facility] [address] [id number], [place] [address]- 1509 Aug, [facility] [place] [facility] [address] [id number], [place] [address]- 8522 30 Jul, 2013 [facility] [place] [facility] [address] [id number], [place] [address]- 1249 18 Sep, 2013 [facility] [place] [facility] [address] [id number] [place] [address]- 4739 18 Sep, 2013 [facility] [place] [facility] [address] [id number], [place] [address]- 4933 03 Sep, 2013 [facility] [place] [facility] [address] [id number], [place] [address]- 1832 03 Sep, 2013 [facility] [place] [facility] [id number], [place] [address]- 4759 Jun, [facility] [id number], [place] [address]- 6516 Jun, [facility] [address] [facility] [id number], [place] [address]- 7148 Jun, [facility] [id number], [place] [address]- 8169 Jun, [facility] [id number], [place] [address]- 0677 Jun, [facility] [address], [place] [address]- 2951 Jun, [facility] [address], [place] [address]- 7346 May, [facility] [address] [address] 1016 May, [facility] [address] [id number] [address] 3705 May, [facility] [id number], [place] [address]- 1606 May, [facility] [id number], [place] [address]- 5703 May, IMMUNIZATIONS No Known Immunizations SOCIAL HISTORY Never Assessed REASON FOR VISIT [facility] PLAN OF CARE VITAL SIGNS MEDICATIONS Unknown Medications RESULTS No Results PROCEDURES No Known procedures INSTRUCTIONS MEDICATIONS ADMINISTERED No Known Medications MEDICAL (GENERAL) HISTORY Type Description Date Medical History asthma Medical History chronic pain Medical History polymyalgia/polyarthralgia Hospitalization History auto immune 2013 Hospitalization History Rhabdomylysis 04/15/16
--- OUTSIDE RECORDS SUMMARY | 2019-03-05 05:31 | XMS REPORT ---
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 Active 513081793 Problem Weakness R53.1 Active 13528907 ALLERGIES No Information ENCOUNTERS Encounter Location Date Diagnosis [facility] [id number] [place] [address] 47420- 3916 Oct, [facility] [id number] [place] [address] 85112- 0930 Oct, [facility] [id number] [place] [address] 95778- 6958 Sep, [facility] [id number] [place] [address] 57619- 7906 Sep, Back pain, lumbosacral M54.5 [facility] [id number] [place] [address] 60161- 3812 17 Jul, 2018 [facility] [id number] [place] [address] 60242- 0156 Jul, [facility] [id number] [place] [address] 12978- 0537 Jul, [facility] [id number] [place] [address] 04346- 5377 Jul, [facility] [id number] [place] [address] 58875- 1856 Jun, [facility] [address] [place] [address] 58832- 1679 Apr, Back pain, lumbosacral M54.5 and Weight loss R63.4 [facility] [id number] [place] [address] 04805- 4470 Jan, [facility] [id number] [place] [address] 73548- 6974 Sep, Adjustment disorder with depressed mood F43.21 [facility] [id number] [place] [address] 68432- 8611 Sep, Seizures R56.9 [facility] [address] 69180- 9146 Sep, [facility] [id number] [place] [address] 73895- 4190 Jul, Adjustment disorder with depressed mood F43.21 and Other chronic pain G89.29 [facility] [id number] [place] [address] 15458- 8271 Jun, Non-traumatic rhabdomyolysis M62.82 [facility] [id number] [place] [address] 78486- 5283 Apr, [facility] [id number] [place] [address] 17078- 3789 Apr, Weakness R53.1 [facility] [id number] [place] [address] 30948- 4159 March, Weakness R53.1 [facility] [id number] [place] [address] 96455- 3718 March, [facility] [id number] [place] [address] 31000- 5056 March, Weakness R53.1 [facility] [id number] [place] [address] 65143- 4494 Feb, [facility] [id number] [place] [address]- 3226 Feb, Weakness R53.1 [facility] [id number] [place] [address] 74047 2546 Feb, Weakness R53.1 [facility] [id number] [place] [address] [id number] Jan, Dental caries K02.9 [facility] [id number] [place] [address] [id number] Jan, Dental examination Z01.20 [facility] [id number] [place] [address], [place] [address]- 2506 Dec, [facility] [id number] [place] [address] 01307- 4826 Dec, [facility] [id number] [place] [address] 88336- 6557 Nov, [facility] [id number] [place] [address] 75701- 0332 Nov, [facility] [id number] [place] [address] 31622- 2347 Nov, [facility] [id number] [place] [address] 88129- 7475 Nov, [facility] [id number] [place] [address] 94543- 0962 Nov, Weakness R53.1 and 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 [facility] [id number] [place] [address] 17651- 3557 Nov, [facility] [id number] [place] [address] 84637- 2546 Oct, [facility] [id number] [place] [address] 01346 2549 06 Jul, 2016 [facility] [id number] [place] [address] 72508- 5921 May, [facility] [id number] [place] [address] 31743- 5102 Apr, [facility] [id number] [place] [address] 91830- 9912 March, Seizures R56.9 and Neuropathy G62.9 [facility] [id number] [place] [address] 11512- 1415 March, [facility] [id number] [place] [address] 54342- 2547 March, [facility] [id number] [place] [address] 50362- 1149 March, Polyarthralgia M25.50 [facility] [id number] [place] [address] 60709- 7822 Jan, Muscle cramp R25.2 [facility] [id number] [place] [address] 84038- 0312 Jan, [facility] [id number] [place] [address] 42859- 0940 Dec, [facility] [id number] [place] [address] 10489- 0892 Oct, Muscle cramp R25.2 [facility] [id number] [place] [address] 74556- 4134 Oct, [facility] [id number] [place] [address] 88452- 8103 Jul, [facility] [id number] [place] [address] 12540- 2370 Jun, [facility] [id number] [place] [address] 268716- 6270 Jun, [facility] [id number] [place] [address] 69229- 8814 May, Muscle cramp 729.82 [facility] [address] [address]- 3585 May, Anxiety state, unspecified 300.00 [facility] [id number] [place] [address] 77420- 1707 Apr, [facility] [id number] [place] [address] 45347- 9988 Apr, Anxiety state 300.00 ; Cognitive decline 294.9 and [place] diagnosis deferred 799.9 [facility] [id number] [place] [address] 10038- 2783 March, [facility] [id number] [place] [address] 44182- 3808 March, [facility] [id number] [place] [address] 43615- 8385 March, Neuropathy 355.9 and Cognitive disorder 294.9 [facility] [id number] [place] [address] 05439- 9567 March, Neuropathy 355.9 and Cognitive disorder 294.9 [facility] [id number] [place] [address] 29370- 7342 March, Spasm of muscle 728.85 ; Memory loss 780.93 and Tremor of both hands 781.0 [facility] [address] [address]- 9593 March, [facility] [id number] [place] [address] 44065- 5501 Feb, [facility] [id number] [place] [address] 35555- 0160 Feb, [facility] [id number] [place] [address] 44522- 0091 Dec, [facility] [address] [address]- 8774 Dec, [facility] [id number] [place] [address]- 2926 Dec, [facility] [address] [id number] [place] [address]- 9658 Dec, [facility] [place] [facility] [address] [id number] [place] [address]- 4036 Nov, [facility] [address] [id number] [place] [address]- 9587 Nov, [facility] [place] [facility] [address] [id number] [place] [address]- 7649 Nov, [facility] [address] [id number] [place] [address]- 2406 Nov, [facility] [place] [facility] [address] [facility] [id number] [place] [address]- 8430 Nov, [facility] [address] [facility] [id number] [place] [address]- 4297 Nov, [facility] [address] [id number] [place] [address]- 5075 Oct, [facility] [place] [facility] [address] [id number] [place] [address]- 1990 Oct, [facility] [place] [facility] [address] [facility] [id number] [place] [address]- 7259 Sep, [facility] [place] [facility] [address] [id number] [place] [address]- 8657 Sep, [facility] [place] [facility] [address] [id number] [place] [address]- 1651 Sep, [facility] [place] [facility] [address] [id number] [place] [address]- 6629 Sep, [facility] [place] [facility] [address] [facility] [id number] [place] [address]- 2923 Aug, [facility] [place] [facility] [address] [id number] [place] [address]- 6227 Aug, [facility] [place] [facility] [address] [id number] [place] [address]- 4570 Aug, 2013 [facility] [place] [facility] [address] [id number] [place] [address]- 9285 Aug, 2013 [facility] [place] [facility] [address] [id number] [place] [address]- 6916 Aug, 2013 [facility] [place] [facility] [address] [id number] [place] [address]- 7663 Aug, 2013 [facility] [place] [facility] [address] [id number] [place] 7085 Aug, 2013 [facility] [place] [facility] [address] [id number] [place] [address]- 5641 Aug, 2013 [facility] [place] [facility] [address] [id number] [place] [address]- 6043 Aug, 2013 [facility] [place] [facility] [address] [id number] [place] [address]- 7068 Aug, 2013 [facility] [place] [facility] [address] [id number] [place] [address]- 0272 Aug, [facility] [place] [facility] [address] [id number] [place] [address]- 5148 Aug, [facility] [place] [facility] [address] [id number] [place] [address]- 1156 Aug, [facility] [place] [facility] [address] [id number], [place] [address]- [address] 30 Jul, 2013 [facility] [place] [facility] [address] [id number] [place] [address]- 8246 18 Jul, 2013 [facility] [place] [facility] [address] [id number] [place] [address]- 2164 18 Jul, 2013 [facility] [place] [facility] [address] [id number], [place] [address]- 4880 03 Jul, 2013 [facility] [place] [facility] [address] [id number], [place] [address]- 7072 Jul, [facility] [address] [address]- 0761 Jun, [facility] [address] [facility] [id number], [place] [address]- 4282 Jun, [facility] [address] [address]- 4489 Jun, [facility] [address] [facility] [id number], [place] [address]- 8838 Jun, [facility] [address] [facility] [id number], [place] [address]- 4308 Jun, [facility] [address] [address]- 5866 Jun, [facility] [address], [place] [address]- 8938 May, [facility] [address], [place] [address]- 5849 May, [facility] [address], [place] [address]- 9678 May, [facility] [address], [place] [address]- 4602 May, [facility] [id number] [address]- 8727 May, IMMUNIZATIONS No Known Immunizations SOCIAL HISTORY [...]
--- OUTSIDE RECORDS SUMMARY | 2019-03-05 05:35 | XMS REPORT | Continuity of Care Document ---
Author Organization Unknown Address Unknown Allergies Active Description Code Type Severity Reaction Onset Reported/Identified Relationship to Patient Clinical Status Yes NO NAME AVAILABLE 36338 DRUG N/ A N/A Yes No Known Drug Allergies [id number] Drug Allergy Unknown N/A 06/14/2014 Medications There [...] MARIA JARAMILLO PHD 493.90 ASTHMA UNSPECIFIED 06/17/2014 CLINT MADDEN, ANA [...] VEGA DO 788.42 POLYURIA 08/07/2014 NARESH MATHIS DELIVERY DEPARTMENT SUPERVISOR Ot 288.60 LEUKOCYTOSIS, UNSPECIFIED 08/07/2014 NARESH MATHIS APRN Ot 719.46 JOINT PAIN-L/LEG 08/11/2014 ANA MARIA [...] CONGESTION 10/24/2016 NARESH MATHIS APRN Ot Z79.52 CLINICAL UNIT EDUCATOR (CURRENT) USE OF SYSTEMIC STER 10/25/2016 NARESH MATHIS APRN Ot J06.9 ACUTE UPPER RESPIRATORY INFECTION, UNSPE 10/25/2016 NARESH MATHIS APRN Ot M62.82 RHABDOMYOLYSIS 10/25/2016 NARESH MATHIS APRN Ot R09.81 NASAL CONGESTION 10/25/2016 NARESH MATHIS APRN Ot Z79.52 CLINICAL UNIT EDUCATOR (CURRENT) USE OF SYSTEMIC STER 10/30/2016 NARESH MATHIS APRN Ot J06.9 ACUTE UPPER RESPIRATORY INFECTION, UNSPE 10/30/2016 NARESH MATHIS APRN Ot M62.82 RHABDOMYOLYSIS 10/30/2016 NARESH MATHIS APRN Ot R09.81 NASAL CONGESTION 10/30/2016 NARESH MATHIS APRN Ot Z79.52 CLINICAL UNIT EDUCATOR (CURRENT) USE OF SYSTEMIC STER 10/31/2016 NARESH MATHIS APRN Ot J02.9 ACUTE PHARYNGITIS, UNSPECIFIED 10/31/2016 NARESH MATHIS APRN Ot R11.2 NAUSEA WITH VOMITING, UNSPECIFIED 10/31/2016 NARESH MATHIS APRN Ot R74.8 ABNORMAL LEVELS OF OTHER SERUM ENZYMES 10/31/2016 NARESH MATHIS DELIVERY DEPARTMENT SUPERVISOR Ot Z79.52 CLINICAL UNIT EDUCATOR (CURRENT) USE OF SYSTEMIC STER 11/18/2016 NARESH MATHIS DELIVERY DEPARTMENT SUPERVISOR Ot K02.9 DENTAL CARIES, UNSPECIFIED 11/18/2016 NARESH MATHIS DELIVERY DEPARTMENT SUPERVISOR Ot K08.9 DISORDER OF TEETH AND SUPPORTING STRUCTU 11/20/2016 NARESH MATHIS DELIVERY DEPARTMENT SUPERVISOR Ot K02.9 DENTAL CARIES, UNSPECIFIED 11/20/2016 NARESH MATHIS DELIVERY DEPARTMENT SUPERVISOR Ot K08.9 DISORDER OF TEETH AND SUPPORTING STRUCTU 12/02/2016 MAURY ROJO MD Ot M79.1 MYALGIA 12/02/2016 MAURY ROJO MD Ot R53.1 WEAKNESS 12/02/2016 MAURY ROJO MD Ot Z79.52 MCFP (CURRENT) USE OF SYSTEMIC STER 12/03/2016 MAURY ROJO MD Ot M79.1 MYALGIA 12/03/2016 MAURY ROJO MD Ot R53.1 WEAKNESS 12/03/2016 MAURY ROJO MD Ot Z79.52 MCFP (CURRENT) USE OF SYSTEMIC STER 02/17/2017 TED [...] PERSONAL HISTORY OF NICOTINE DEPENDENCE 10/06/2017 MAURY RJOO MD Ot J45.909 UNSPECIFIED ASTHMA, UNCOMPLICATED 10/06/2017 [...] VICKERS MD Ot R07.89 OTHER CHEST PAIN 10/18/2018 TAMI VICKERS MD Ot F32.9 MAJOR DEPRESSIVE DISORDER, SINGLE EPISOD 10/18/2018 TAMI VICKERS MD Ot G40.909 EPILEPSY, UNSP, NOT INTRACTABLE, WITHOUT 10/18/2018 TAMI VICKERS MD Ot J45.901 UNSPECIFIED ASTHMA WITH (ACUTE) EXACERBA 10/18/2018 TAMI VICKERS MD Ot J45.909 UNSPECIFIED ASTHMA, UNCOMPLICATED 10/18/2018 TAMI VICKERS MD, Ot J98.8 OTHER SPECIFIED RESPIRATORY DISORDERS 10/18/2018 TAMI VICKERS MD Ot M62.82 RHABDOMYOLYSIS 10/18/2018 TAMI VICKERS MD Ot Z79.51 CLINICAL UNIT EDUCATOR (CURRENT) USE OF INHALED STERO 10/18/2018 TAMI VICKERS MD Ot Z79.52 CLINICAL UNIT EDUCATOR (CURRENT) USE OF SYSTEMIC STER 10/18/2018 TAMI VICKERS MD, Ot Z87.891 PERSONAL HISTORY OF NICOTINE DEPENDENCE 10/20/2018 TAMI VICKERS MD, Ot F32.9 MAJOR DEPRESSIVE DISORDER, SINGLE EPISOD 10/20/2018 TAMI VICKERS MD Ot G40.909 EPILEPSY, UNSP, NOT INTRACTABLE, WITHOUT 10/20/2018 TAMI VICKERS MD Ot J45.901 UNSPECIFIED ASTHMA WITH (ACUTE) EXACERBA 10/20/2018 TAMI VICKERS MD Ot J45.909 UNSPECIFIED ASTHMA, UNCOMPLICATED 10/20/2018 TAMI VICEKRS MD, Ot J98.8 OTHER SPECIFIED RESPIRATORY DISORDERS 10/20/2018 TAMI VICKERS MD Ot M62.82 RHABDOMYOLYSIS 10/20/2018 TAMI VICKERS MD Ot Z79.51 CLINICAL UNIT EDUCATOR (CURRENT) USE OF INHALED STERO 10/20/2018 TAMI VICKERS MD Ot Z79.52 CLINICAL UNIT EDUCATOR (CURRENT) USE OF SYSTEMIC STER 10/20/2018 TAMI VICKERS MD Ot Z87.891 PERSONAL HISTORY OF NICOTINE DEPENDENCE Procedures Code [place] [address] ROUTINE VENIPUNCTURE 06/27/2014 02092 TSH 06/27/2014 48939 SED/ESR RATE (IN HOUSE) 06/27/2014 14012 CRP 06/27/2014 16283 OXIMETRY 06/27/2014 34262 CBC 06/27/2014 7401215 GFR CALC (RESULT ONLY) 06/27/2014 33147 CMP 06/27/2014 56599 LIPID PANEL 06/27/2014 65295 PSYCH DIAGNOSTIC EVALUATION 08/11/2014 72640 ROUTINE VENIPUNCTURE 08/29/2014 64670 CORTISOL 08/29/2014 38664 ASO 08/29/2014 55589 RA FACTOR 08/29/2014 ANAANA LINDA ANALYZER (SCREEN) 08/29/2014 57982 MAGNESIUM 08/30/2014 37234 PSYTX PT&/FAMILY 30 MINUTES 09/28/2014 Results Test [...] FOR INFLUENZA A AND B ANTIGENS BY IA NR Complete blood count (CBC) with automated white [...] 0-44 Sedimentation Rate-[facility] - 03/24/17 12:05 [facility]15 Complete blood count (CBC) [...] Status Pt. Type Provider Facility Loc./Unit Complaint [id number] 11/29/2014 16:57:00 11/29/2014 23:59:59 CLS Outpatient SHANNA DE LA VEGA DO [id number] 10/23/2014 00:00:00 10/23/2014 23:59:59 CLS Outpatient CLINT MADDEN, ANA MARIA Dumont [id number] 09/28/2014 13:49:00 09/28/2014 23:59:59 CLS Outpatient ANA MARIA JARAMILLO PHD [id number] 08/29/2014 09:56:00 08/29/2014 23:59:59 CLS Outpatient JUNE TAMAYO APRN [id number] 08/11/2014 09:06:00 08/11/2014 23:59:59 CLS Outpatient ANA MARIA JARAMILLO PHD [id number] 06/27/2014 09:09:00 06/27/2014 23:59:59 CLS Outpatient JUNE TAMAYO APRN [id number] 06/17/2014 16:17:00 06/17/2014 23:59:59 CLS Outpatient JUNE TAMAYO APRN [id number] 03/25/2017 09:08:00 Document Registration [id number] 12/11/2016 18:05:00 Document Registration [id number] 05/26/2014 11:50:41 05/26/2014 23:59:00 DIS Outpatient DEANN WILLOUGHBY [facility] FLBO [id number] 05/03/2014 18:21:00 05/03/2014 19:29:00 DIS Emergency [facility] FED [facility] 05/31/2014 06:43:31 ACT Document Registration [id number] 01/18/2019 08:00:00 01/18/2019 23:59:59 CLS Outpatient JUNE TAMAYO APRN [facility] [id number] 10/18/2018 08:41:00 10/18/2018 09:17:00 DIS Emergency TAMI VICKERS MD [facility] ER ASTHMA [id number] 10/08/2017 08:12:00 10/08/2017 09:57:00 DIS Emergency TAMI VICKERS MD [facility] ER BURNING LEFT SIDE, AUTO IMMUNE DISEASE [id number] 10/04/2017 06:50:00 10/04/2017 09:53:00 DIS Emergency MAURY ROJO MD [facility] ER AUTO IMMUNE DISEASE [id number] 10/02/2017 06:40:00 10/02/2017 09:10:00 DIS Emergency MAURY ROJO MD [facility] ER LEG PARALYSIS [id number] 02/17/2017 16:10:00 02/17/2017 17:20:00 DIS Emergency TED VELA [facility] ER DENTAL PAIN [id number] 12/02/2016 06:34:00 12/02/2016 08:10:00 DIS Emergency MAURY ROJO MD [facility] ER NOT FEELING WELL [id number] 11/18/2016 11:41:00 11/18/2016 13:42:00 DIS Emergency NARESH MATHIS APRN [facility] ER DENTAL PAIN [id number] 10/31/2016 13:59:00 10/31/2016 15:27:00 DIS Emergency NARESH MATHIS APRN [facility] ER VOMITING/NAUSEA SORE THROAT [id number] 10/24/2016 18:50:00 10/24/2016 19:38:00 DIS Emergency NARESH MATHIS APRN [facility] ER CONGESTION,COLD SYMPTOMS [id number] 06/26/2016 17:14:00 06/26/2016 20:15:00 DIS Emergency MAURY ROJO MD [facility] ER KIDNEY STONE [id number] 06/17/2016 09:45:00 06/17/2016 12:31:00 DIS Emergency TED VELA [facility] ER DENTAL PAIN/FACIAL SWELLING [id number] 04/15/2016 04:15:00 04/16/2016 12:30:00 DIS Inpatient JOSH EDMONDSON MD [facility] 4TH RHABDOMYLYSIS [id number] 10/09/2015 14:31:00 10/09/2015 17:30:00 DIS Emergency TED VELA [facility] ER SORE THROAT [id number] 08/07/2014 12:58:00 08/07/2014 15:34:00 DIS Emergency NARESH MATHIS APRN [facility] ER KNEE PAIN [id number] 06/25/2014 01:05:00 06/25/2014 02:30:00 DIS Emergency MEGA ALBA MD [facility] ER SOB,PAIN ALL OVER [id number] 06/15/2014 23:59:00 06/16/2014 01:44:00 DIS Emergency RANCHO AMAYA, TAMI Russell [facility] ER THROAT SWELLING [id number] 06/14/2014 18:02:00 06/14/2014 19:49:00 DIS Emergency NARESH MATHIS APRN [facility] ER DIFFICULTY BREATHING, GENERAL SWELLING [id number] 03/05/2019 05:25:00 ACT Emergency NOEMI AMAYA, RUDDY Garcia [facility] ER GROIN ABSCESS
--- NOTE | 2019-03-05 05:36 | ED Integumentary General ---
General Chief Complaint: Skin/Wound Problems Stated Complaint: GROIN ABSCESS Source: patient Exam Limitations: no limitations (RUDDY FRANKLIN) History of Present Illness Date Seen by Provider: Mar 05, 2019 Time Seen by Provider: 05:18 Initial Comments The patient presents to the ER from his home by EMS with chief complaint that over the past 3 days that he has developed a boil in his left groin. He does not have any dysuria, discharge fever or nausea. There is no discharge from the wound. He does not have a history of hidradenitis separative up nor does he have a history of abscesses. He has not taken anything for pain. (RUDDY FRANKLIN) Allergies and Home Medications Allergies Coded Allergies: No Known Drug Allergies (Unverified , 06/14/14) Home Medications Albuterol Sulfate 1 Puff Puff, 2 PUFF IH Q4H 1 PUFF = 90 MCG Prescribed by: TAMI NAVA on 10/18/18 09 Prednisone 20 Mg Tab, 1 TAB PO DAILY Prescribed by: TAMI NAVA on 10/18/18 0912 Patient Home Medication List Home Medication List Reviewed: Yes (RUDDY FRANKLIN) Review of Systems Review of Systems Constitutional: No chills, No fever EENTM: No ear pain, No eye pain Respiratory: No cough, No phlegm, No short of breath Cardiovascular: No chest pain, No edema Gastrointestinal: No abdominal pain, No constipation, No diarrhea Genitourinary: No discharge, No dysuria Musculoskeletal: No back pain, No joint pain (RUDDY FRANKLIN) Past Ulwtxyb-Uczmts-Whdijc Hx Patient Social History Alcohol Use: Denies Use Recreational Drug Use: No Smoking Status: Former Smoker Type Used: Cigarettes Former Smoker, Quit: Dec 25, 2015 Recent Foreign Travel: No Contact w/Someone Who Travel: No Recent Hopitalizations: No (RUDDY FRANKLIN) Immunizations Up To Date Tetanus Booster (TDap): Less than 5yrs Date of Pneumonia Vaccine: Apr 25, 2014 Date of Influenza Vaccine: Jul 25, 2013 (RUDDY FRANKLIN) Seasonal Allergies Seasonal Allergies: Yes (RUDDY FRANKLIN) Past Medical History Surgeries: Yes (DENTAL SURG) Respiratory: Yes Asthma Cardiac: No Neurological: Yes (reported muscular disorder but unknown name) Seizure Disorder Reproductive Disorders: No Sexually Transmitted Disease: No HIV/AIDS: No Gastrointestinal: No Musculoskeletal: Yes Endocrine: No HEENT: No Cancer: No Psychosocial: Yes (adjustment disorder) Depression Integumentary: No Blood Disorders: No (RUDDY FRANKLIN) Family Medical History Patient reports no known family medical history. No Pertinent Family Hx (RUDDY FRANKLIN) Physical Exam Vital Signs Vital Signs - First Documented 03/05/19 05:23 Temp 97.9 Pulse 91 Resp 18 B/P (MAP) 130/94 (106) Pulse Ox 97 O2 Delivery Room Air (NATALIE DUMONT MD) Vital Signs Capillary Refill : (RUDDY FRANKLIN) General Appearance: WD/WN, no apparent distress HEENT: PERRL/EOMI, pharynx normal Neck: non-tender, full range of motion, normal inspection Cardiovascular: normal peripheral pulses, regular rate, rhythm Respiratory: no respiratory distress, no accessory muscle use Gastrointestinal: non tender, soft Extremities: non-tender, normal capillary refill Skin: other (small, fluctuant nodule consistent with an abscess in his left groin approximately 1 x 3 cm that is tender, erythematous with some pointing but no discharge. Mild induration around the nodule. There is no induration in the thigh) (RUDDY FRANKLIN) Progress/Results/Core Measures Results/Orders My Orders Orders - NATALIE DUMONT MD Wound Culture (03/05/19 06:11) (NATALIE DUMONT MD) Medications Given in ED Current Medications Medications Dose Ordered Sig/Wilfred Route Start Time Stop Time Status Last Admin Dose Admin Ketorolac Tromethamine 60 mg ONCE ONCE IM 03/05/19 05:45 03/05/19 05:46 DC 03/05/19 05:49 60 MG Lidocaine HCl 20 ml ONCE ONCE INJ 03/05/19 05:30 03/05/19 05:31 DC 03/05/19 06:03 20 ML Trimethoprim/ Sulfamethoxazole 1 ea ONCE ONCE PO 03/05/19 05:45 03/05/19 05:46 DC 03/05/19 05:49 1 EA (NATALIE DUMONT MD) Vital Signs/I&O 03/05/19 05:23 Temp 97.9 Pulse 91 Resp 18 B/P (MAP) 130/94 (106) Pulse Ox 97 O2 Delivery Room Air (NATALIE DUMONT MD) Progress Progress Note : Time: 05:35 Progress Note We have offered to drain the abscess in the usual fashion and the patient says he needs some time to think about this. We have offered Toradol for his pain. (RUDDY FRANKLIN) Progress Note : Time: 06:14 Progress Note I obtained the patient's permission and incised and drained his abscess with a number 11 blade. A culture and sensitivity was obtained. Patient tolerated the procedure well. A dressing was applied. (NATALIE DUMONT MD) Transfer of Care Time: 06:01 Care transferred to: Jess (RUDDY FRANKLIN) Departure Impression Primary Impression: Abscess Disposition: HOME, SELF-CARE Condition: Improved Departure-Patient Inst. Decision time for Depature: 06:17 (NATALIE DUMONT MD) Referrals: [facility] (PCP/Family) Primary Care Physician Patient Instructions: Abscess Incision and Drainage (DC) Add. Discharge Instructions: Bactrim as prescribed. Tylenol for pain. Clean with soap and water twice daily. Close follow up with [facility]. Come back if any problems or questions.All discharge instructions reviewed with patient and/or family. Voiced understanding. RUDDY FRANKLIN Mar 05, 2019 05:36 NATALIE DUMONT MD Mar 05, 2019 06:18
[2019-03-05] MEDS ORDERED: TRIM/SULFAMETH 160/800 (SEPTRA DS) TAB PO ONE (05:45)
[2019-03-05] MEDS ORDERED: KETOROLAC 60 MG/2 ML VIAL IM ONE (05:45)
[2019-03-05 06:18] VITALS: BP 124/79
== END 2019-03-05 06:21 | disposition home or self-care (01) ==
LOC: EDUNIT# 05:23 → ER 05:25
DX: L02.214 Cutaneous abscess of groin (principal); J45.909 Unspecified asthma, uncomplicated; G40.909 Epilepsy, unspecified, not intractable, without status epilepticus; F32.9 Major depressive disorder, single episode, unspecified; F43.20 Adjustment disorder, unspecified; Z79.52 Long term (current) use of systemic steroids; Z87.891 Personal history of nicotine dependence
CPT/HCPCS: 10160; 87070; 87077; 87205

== ENCOUNTER 2019-11-17 19:42 | Emergency (ER) | payer SELFPAY ==
[~2019-11-17] VITALS: Ht 180.3 cm; Wt 67.8 kg
--- NOTE | 2019-11-17 20:29 | ED General ---
General Stated Complaint: WEAKNESS Source of Information: Patient Exam Limitations: No Limitations History of Present Illness Date Seen by Provider: Nov 17, 2019 Time Seen by Provider: 20:28 Initial Comments To ER with generalized weakness for 3 weeks getting progressively worse. No fever no chills no cough. He did have a sore throat last week but that seems to be better. Intermittent abdominal pain, intermittent left hip pain, intermittent right forearm pain. History of seizures but takes no medications for it. He was formerly on prednisone for seizures but has been off of that for many months. Timing/Duration: Getting Worse, Intermittent Severity: Moderate Associated Systoms: No Cough, No Fever/Chills; Weakness Allergies and Home Medications Allergies Coded Allergies: No Known Drug Allergies (Unverified , 06/14/14) Home Medications Albuterol Sulfate 1 Puff Puff, 2 PUFF IH Q4H 1 PUFF = 90 MCG Prescribed by: TAMI NAVA on 10/18/18911 Prednisone 20 Mg Tab, 1 TAB PO DAILY Prescribed by: TAMI NAVA on 10/18/18 09 Patient Home Medication List Home Medication List Reviewed: Yes Review of Systems Review of Systems Constitutional: see HPI; No chills, No fever EENTM: see HPI, throat pain Respiratory: see HPI; No cough, No short of breath Cardiovascular: no symptoms reported Genitourinary: no symptoms reported Musculoskeletal: no symptoms reported Skin: no symptoms reported Psychiatric/Neurological: No Symptoms Reported Hematologic/Lymphatic: No Symptoms Reported Past Tkjnsqp-Zwtqgb-Rzerhr Hx Patient Social History Type Used: Cigarettes Former Smoker, Quit: Mar 03, 2019 2nd Hand Smoke Exposure: Yes Recent Foreign Travel: No Contact w/Someone Who Travel: No Recent Hopitalizations: No Immunizations Up To Date Tetanus Booster (TDap): Less than 5yrs Date of Pneumonia Vaccine: Apr 25, 2014 Date of Influenza Vaccine: Jul 25, 2013 Seasonal Allergies Seasonal Allergies: Yes Past Medical History Surgeries: Yes (DENTAL ) Respiratory: Yes Asthma Cardiac: No Neurological: Yes Seizure Disorder Reproductive Disorders: No Sexually Transmitted Disease: No HIV/AIDS: No Genitourinary: No Gastrointestinal: No Musculoskeletal: Yes Endocrine: No HEENT: No Cancer: No Psychosocial: Yes Depression Integumentary: No Blood Disorders: No Family Medical History Patient reports no known family medical history. No Pertinent Family Hx Physical Exam Vital Signs Vital Signs - First Documented 11/17/19 20:12 Temp 36.7 Pulse 78 Resp 18 B/P (MAP) 115/98 (104) Pulse Ox 98 O2 Delivery Room Air Capillary Refill : Height, Weight, BMI Height: 5'11.00" Weight: 150lbs. 4.0oz. [id number]; 27.1 BMI Method:Stated General Appearance: No Apparent Distress, WD/WN, Thin (well-appearing alert and oriented pleasant) Eyes: Bilateral Eye Normal Inspection, Bilateral Eye PERRL, Bilateral Eye EOMI Neck: Full Range of Motion, Normal Inspection Respiratory: Lungs Clear, Normal Breath Sounds, No Accessory Muscle Use, No Respiratory Distress Cardiovascular: Regular Rate, Rhythm, Normal Peripheral Pulses Gastrointestinal: Normal Bowel Sounds, Non Tender, Soft Extremity: Normal Capillary Refill, Normal Inspection Neurologic/Psychiatric: Alert, Oriented x3 Skin: Normal Color, Warm/Dry Progress/Results/Core Measures Suspected Sepsis SIRS Temperature: Pulse: Respiratory Rate: Laboratory Tests 11/17/19 20:29: White Blood Count 4.3 Blood Pressure / Mean: Laboratory Tests 11/17/19 20:29: Creatinine 1.04, Platelet Count 264, Total Bilirubin 0.6 Results/Orders Lab Results Laboratory Tests Test 11/17/19 20:29 11/17/19 20:34 Range/Units White Blood Count 4.3 4.3-11.0 10^3/uL Red Blood Count 5.28 4.35-5.85 10^6/uL Hemoglobin 15.1 13.3-17.7 G/DL Hematocrit 46 40-54 % Mean Corpuscular Volume 88 80-99 FL Mean Corpuscular Hemoglobin 29 25-34 PG Mean Corpuscular Hemoglobin Concent 33 32-36 G/DL Red Cell Distribution Width 13.3 10.0-14.5 % Platelet Count 264 130-400 10^3/uL Mean Platelet Volume 10.0 7.4-10.4 FL Neutrophils (%) (Auto) 34 L 42-75 % Lymphocytes (%) (Auto) 42 12-44 % Monocytes (%) (Auto) 16 H 0-12 % Eosinophils (%) (Auto) 8 0-10 % Basophils (%) (Auto) 1 0-10 % Neutrophils # (Auto) 1.5 L 1.8-7.8 X 10^3 Lymphocytes # (Auto) 1.8 1.0-4.0 X 10^3 Monocytes # (Auto) 0.7 0.0-1.0 X 10^3 Eosinophils # (Auto) 0.3 0.0-0.3 10^3/uL Basophils # (Auto) 0.0 0.0-0.1 10^3/uL Sodium Level 140 135-145 MMOL/L Potassium Level 4.2 3.6-5.0 MMOL/L Chloride Level 104 98-107 MMOL/L Carbon Dioxide Level 25 21-32 MMOL/L Anion Gap 11 5-14 MMOL/L Blood Urea Nitrogen 14 7-18 MG/DL Creatinine 1.04 0.60-1.30 MG/DL Estimat Glomerular Filtration Rate > 60 BUN/Creatinine Ratio 13 Glucose Level 80 70-105 MG/DL Calcium Level 9.5 8.5-10.1 MG/DL Corrected Calcium 9.2 8.5-10.1 MG/DL Total Bilirubin 0.6 0.1-1.0 MG/DL Aspartate Amino Transf (AST/SGOT) 25 5-34 U/L Alanine Aminotransferase (ALT/SGPT) 25 0-55 U/L Alkaline Phosphatase 90 40-136 U/L Total Creatine Kinase 358 H 30-200 U/L C-Reactive Protein High Sensitivity 0.20 0.00-0.50 MG/DL Total Protein 8.2 6.4-8.2 GM/DL Albumin 4.4 3.2-4.5 GM/DL Monoscreen NEGATIVE NEGATIVE Urine Color YELLOW Urine Clarity CLEAR Urine pH 6.0 5-9 Urine Specific Agate >=1.030 1.016-1.022 Urine Protein NEGATIVE NEGATIVE Urine Glucose (UA) NEGATIVE NEGATIVE Urine Ketones NEGATIVE NEGATIVE Urine Nitrite NEGATIVE NEGATIVE Urine Bilirubin NEGATIVE NEGATIVE Urine Urobilinogen 1.0 < = 1.0 MG/DL Urine Leukocyte Esterase NEGATIVE NEGATIVE Urine RBC (Auto) NEGATIVE NEGATIVE Urine RBC 0-2 /HPF Urine WBC 0-2 /HPF Urine Crystals NONE /LPF Urine Bacteria NEGATIVE /HPF Urine Casts NONE /LPF Urine Mucus SMALL H /LPF Urine Culture Indicated NO My Orders Orders - NARESH MATHIS DIVISION ORDER TECHNICIAN Erythrocyte Sedimentation Rate (11/17/19 20:26) Hs C Reactive Protein (11/17/19 20:26) Ua Culture If Indicated (11/17/19 20:26) Cbc With Automated Diff (11/17/19 20:26) Comprehensive Metabolic Panel (11/17/19 20:26) Monotest (11/17/19 20:26) Chest Pa/Lat (2 View) (11/17/19 20:26) Ed Iv/Invasive Line Start (11/17/19 20:26) Myoglobin Serum (11/17/19 20:31) Creatine Kinase (11/17/19 20:31) Vital Signs/I&O 11/17/19 20:12 Temp 36.7 Pulse 78 Resp 18 B/P (MAP) 115/98 (104) Pulse Ox 98 O2 Delivery Room Air Capillary Refill : Departure Impression Primary Impression: Myalgia Condition: Improved Departure-Patient Inst. Decision time for Depature: 21:03 Referrals: [facility] (PCP) Primary Care Physician JUNE TAMAYO (Family) Primary Care Physician Patient Instructions: NO INSTRUCTIONS GIVEN Add. Discharge Instructions: N. Steroids as directed starting tomorrow 2. Return to ER for any concerns 3. Follow-up with your doctor this week for recheck. Scripts Methylprednisolone (Medrol) 4 Mg Tab.ds.pk 4 MG PO UD for 6 Days, #21 PKG PER DOSE PACK INSTRUCTIONS Prov: NARESH MATHIS APRN 11/17/19 NARESH MATHIS APRN Nov 17, 2019 20:29
[2019-11-17 20:39] LABS: BASOPHILS % (AUTO) 1 % (0-10); EOSINOPHILS # (AUTO) 0.3 10^3/uL (0.0-0.3); EOSINOPHILS % (AUTO) 8 % (0-10); HEMATOCRIT 46 % (40-54); HEMOGLOBIN 15.1 G/DL (13.3-17.7); LYMPHOCYTES # (AUTO) 1.8 X 10^3 (1.0-4.0); LYMPHOCYTES % (AUTO) 42 % (12-44); MEAN CORPUSCULAR HEMOGLOBIN 29 PG (25-34); MEAN CORPUSCULAR HGB CONC 33 G/DL (32-36); MEAN CORPUSCULAR VOLUME 88 FL (80-99); MONOCYTES # (AUTO) 0.7 X 10^3 (0.0-1.0); MONOCYTES % (AUTO) 16 % (0-12); NEUTROPHILS # (AUTO) 1.5 X 10^3 (1.8-7.8); NEUTROPHILS % (AUTO) 34 % (42-75); PLATELET COUNT 264 10^3/uL (130-400); RED CELL DISTRIBUTION WIDTH 13.3 % (10.0-14.5); WHITE BLOOD COUNT 4.3 10^3/uL (4.3-11.0)
[2019-11-17 20:40] LABS: BILIRUBIN,URINE NEGATIVE (NEGATIVE); CLARITY,URINE CLEAR; COLOR,URINE YELLOW; GLUCOSE, URINE (UA) NEGATIVE (NEGATIVE); KETONES,URINE NEGATIVE (NEGATIVE); LEUKOCYTE ESTERASE ,URINE NEGATIVE (NEGATIVE); NITRITE,URINE NEGATIVE (NEGATIVE); PROTEIN,URINE NEGATIVE (NEGATIVE)
[2019-11-17 20:56] LABS: ALANINE AMINOTRANSFERASE 25 U/L (0-55); ALBUMIN 4.4 GM/DL (3.2-4.5); ALKALINE PHOSPHATASE 90 U/L (40-136); BILIRUBIN,TOTAL 0.6 MG/DL (0.1-1.0); BUN/CREATININE RATIO 13; CALCIUM 9.5 MG/DL (8.5-10.1); CARBON DIOXIDE 25 MMOL/L (21-32); CHLORIDE 104 MMOL/L (98-107); CREATINE KINASE 358 U/L (30-200); CREATININE SERUM 1.04 MG/DL (0.60-1.30); GFR ESTIMATED > 60; GLUCOSE 80 MG/DL (70-105); POTASSIUM 4.2 MMOL/L (3.6-5.0); SODIUM 140 MMOL/L (135-145); TOTAL PROTEIN 8.2 GM/DL (6.4-8.2)
[2019-11-17 21:01] LABS: BACTERIA,URINE NEGATIVE /HPF; RBC,URINE 0-2 /HPF; WBC,URINE 0-2 /HPF
[2019-11-17] MEDS ORDERED: METH4TAB PO (21:03)
--- NOTE | 2019-11-17 21:07 | Diagnostic Imaging Report ---
INDICATION: Weakness. FINDINGS: Left lower lobe infiltrate compatible with pneumonia. There are also some bilateral perihilar upper lobe infiltrates, all new from prior study of 10/08/2017. No failure, effusion, or pneumothorax. IMPRESSION: Bilateral perihilar infiltrates and left lower lobe pneumonia without pleural fluid or failure pattern. Dictated by: Dictated on workstation # [id number]
[2019-11-17 21:16] VITALS: BP 127/99
[2019-11-17 21:31] LABS: ERYTHROCYTE SEDIMENTATION RATE 8 MM/HR (0-15)
== END 2019-11-17 21:15 | disposition home or self-care (01) ==
LOC: EDUNIT# 19:42 → ER 19:43
DX: M79.18 Myalgia, other site (principal); J45.909 Unspecified asthma, uncomplicated; G40.909 Epilepsy, unspecified, not intractable, without status epilepticus; F32.9 Major depressive disorder, single episode, unspecified; Z87.891 Personal history of nicotine dependence; Z77.22 Contact with and (suspected) exposure to environmental tobacco smoke (acute) (chronic)
CPT/HCPCS: 36415; 71046; 80053; 81000; 82550; 83874; 85025; 85652; 86141; 86308

== ENCOUNTER 2019-12-14 04:19 | Emergency (ER) | payer SELFPAY ==
[~2019-12-14] VITALS: Ht 175.2 cm; Wt 70.3 kg
[~2019-12-14 04:19] MED LIST changes: +METH4TAB PO; -MINO100C2 PO; +MINO100C5 PO; +TRM50T PO
[2019-12-14] MEDS ORDERED: RT-ALBUTEROL SULF 2.5 MG/3 ML PRE-MIX VIAL INH STA (05:06)
--- NOTE | 2019-12-14 05:12 | ED Cough/URI ---
General Chief Complaint: Cough/Cold/Flu Symptoms Stated Complaint: CONGESTION,POSS FEVER Nursing Triage Note: going on third day of coughing with green/yellow sputum. has been taking tylenol at home. couldnt sleep so he came in. Sepsis Screen: No Definite Risk Source: patient Exam Limitations: no limitations History of Present Illness Date Seen by Provider: Dec 14, 2019 Time Seen by Provider: 04:56 Initial Comments Patient presents to ER by private conveyance from home with chief complaint for the past 4-5 days has had cough, chest pain on coughing, shortness of breath, wheezing. He has a history of asthma and on an albuterol inhaler. He's not been using it because he was told that his asthma was mild so he did not think he is supposed to use it. He has not had any fevers but he's had malaise. He's been using multiple cqjo-vth-fxcgffe cough remedies without any benefit and unable to get any sleep so he decided to come to the ER. No history of heart disease. Allergies and Home Medications Allergies Coded Allergies: No Known Drug Allergies (Unverified , 06/14/14) Home Medications Albuterol Sulfate 1 Puff Puff, 2 PUFF IH Q4H 1 PUFF = 90 MCG Prescribed by: TAMI NAVA on 10/18/18 09 Methylprednisolone 4 Mg Tab.ds.pk, 4 MG PO UD PER DOSE PACK INSTRUCTIONS Prescribed by: NARESH MATHIS on 11/17/192102 Prednisone 20 Mg Tab, 1 TAB PO DAILY Prescribed by: TAMI NAVA on 10/18/18 09 Patient Home Medication List Home Medication List Reviewed: Yes Review of Systems Review of Systems Constitutional: No chills, No diaphoresis EENTM: No ear pain, No blurred vision Respiratory: cough, short of breath, wheezing Cardiovascular: No chest pain, No edema, No Hx of Intervention Gastrointestinal: No abdominal pain, No constipation, No diarrhea Genitourinary: No discharge, No dysuria Musculoskeletal: No back pain, No joint pain All Other Systems Reviewed Negative Unless Noted: Yes Past Paphdtd-Jnnrgd-Tqehlc Hx Patient Social History Alcohol Use: Denies Use Recreational Drug Use: No Smoking Status: Former Smoker Type Used: Cigarettes Former Smoker, Quit: Jul 17, 2019 2nd Hand Smoke Exposure: Yes Recent Foreign Travel: No Contact w/Someone Who Travel: No Recent Infectious Disease Expo: No Recent Hopitalizations: No Physical Abuse: No Sexual Abuse: No Mistreated: No Fear: No Immunizations Up To Date Tetanus Booster (TDap): Less than 5yrs Date of Pneumonia Vaccine: Apr 25, 2014 Date of Influenza Vaccine: Jul 25, 2013 Seasonal Allergies Seasonal Allergies: Yes Past Medical History Surgeries: Yes (DENTAL ) Respiratory: Yes Asthma Cardiac: No Neurological: Yes Seizure Disorder Reproductive Disorders: No Sexually Transmitted Disease: No HIV/AIDS: No Genitourinary: No Gastrointestinal: No Musculoskeletal: Yes Endocrine: No HEENT: No Cancer: No Psychosocial: Yes Depression Integumentary: No Blood Disorders: No Family Medical History Patient reports no known family medical history. No Pertinent Family Hx Physical Exam Vital Signs - First Documented 12/14/19 12/14/19 04:30 04:39 Temp 37.0 Pulse 74 Resp 18 B/P (MAP) 151/91 (111) Pulse Ox 99 O2 Delivery Room Air Capillary Refill : Less Than 3 Seconds Height: 5'11.00" Weight: 150lbs. 4.0oz. 68.414889sv; 22.00 BMI Method:Stated General Appearance: WD/WN, mild distress Eyes: Bilateral Eye Normal Inspection, Bilateral Eye PERRL, Bilateral Eye EOMI HEENT: PERRL/EOMI, normal ENT inspection, TMs normal, pharynx normal Neck: non-tender, full range of motion, supple, normal inspection Respiratory: chest non-tender, no accessory muscle use, respiratory distress, rhonchi (bilateral), wheezing Cardiovascular: normal peripheral pulses, regular rate, rhythm Gastrointestinal: normal bowel sounds, non tender, soft Extremities: normal range of motion, non-tender, normal inspection, normal capillary refill Neurologic/Psychiatric: alert, normal mood/affect, oriented x 3 Skin: normal color, warm/dry Progress/Results/Core Measures Suspected Sepsis Recent Fever Within 48 Hours: No Infection Criteria Present: None New/Unexplained Altered Menta: No Sepsis Screen: No Definite Risk SIRS Temperature: Pulse: 74 Respiratory Rate: 18 Laboratory Tests 12/14/19 05:06: White Blood Count 6.9 Blood Pressure 151 /91 Mean: 111 Laboratory Tests 12/14/19 05:06: Platelet Count 230 12/14/19 05:26: Results/Orders Lab Results Laboratory Tests Test 12/14/19 05:06 12/14/19 05:26 Range/Units White Blood Count 6.9 4.3-11.0 10^3/uL Red Blood Count 5.43 4.35-5.85 10^6/uL Hemoglobin 15.4 13.3-17.7 G/DL Hematocrit 47 40-54 % Mean Corpuscular Volume 86 80-99 FL Mean Corpuscular Hemoglobin 28 25-34 PG Mean Corpuscular Hemoglobin Concent 33 32-36 G/DL Red Cell Distribution Width 13.1 10.0-14.5 % Platelet Count 230 130-400 10^3/uL Mean Platelet Volume 9.7 7.4-10.4 FL Neutrophils (%) (Auto) 48 42-75 % Lymphocytes (%) (Auto) 28 12-44 % Monocytes (%) (Auto) 16 H 0-12 % Eosinophils (%) (Auto) 8 0-10 % Basophils (%) (Auto) 0 0-10 % Neutrophils # (Auto) 3.3 1.8-7.8 X 10^3 Lymphocytes # (Auto) 1.9 1.0-4.0 X 10^3 Monocytes # (Auto) 1.1 H 0.0-1.0 X 10^3 Eosinophils # (Auto) 0.5 H 0.0-0.3 10^3/uL Basophils # (Auto) 0.0 0.0-0.1 10^3/uL Micro Results Microbiology 12/14/19 Influenza Types A,B Antigen (RA) - Final, Complete My Orders Orders - RUDDY FRANKLIN Influenza A And B Antigens (12/14/19 04:39) Albuterol Pre-Mix Nebs (Rt) (Proventil (12/14/19 05:06) Chest Pa/Lat (2 View) (12/14/19 05:06) Svn Small Volume Nebulizer (12/14/19 05:06) Cbc With Automated Diff (12/14/19 05:06) Hs C Reactive Protein (12/14/19 05:06) Basic Metabolic Panel (12/14/19 05:06) Ceftriaxone For Im Use (Rocephin For Im (12/14/19 05:45) Azithromycin Tablet (Zithromax Tablet) (12/14/19 05:45) Lidocaine 1% Inj 20 Ml (Xylocaine 1% Inj (12/14/19 05:45) Vital Signs/I&O 12/14/19 12/14/19 04:30 04:39 Temp 37.0 Pulse 74 Resp 18 B/P (MAP) 151/91 (111) Pulse Ox 99 O2 Delivery Room Air Capillary Refill : Less Than 3 Seconds Blood Pressure Mean: 111 Progress Note #1: Time: 05:11 Progress Note Regular breathing treatment check a chest x-ray. He has aseptic vital signs at this time. Influenza was negative. Suspect that he's having a viral bronchitis v ersus pneumonia. Progress Note #2: Time: 05:51 Progress Note His breathing is significantly improved although he still has some crackles in his right base. He says he feels much better. He is in no acute distress and has aseptic vital signs. We'll give him a gram or Rocephin and 500 mg by mouth azithromycin. We'll put him out on cefdinir and azithromycin. We'll give him a refill of albuterol and a spacer. We have given him good return precautions. Diagnostic Imaging Diagonstic Imaging: Xray Plain Films/CT/US/NM/MRI: chest (2v) Reviewed: Reviewed by Me Departure Impression Primary Impression: Pneumonia Qualified Codes: J18.1 - Lobar pneumonia, unspecified organism Additional Impression: Asthma Qualified Codes: J45.901 - Unspecified asthma with (acute) exacerbation Disposition: 01 HOME, SELF-CARE Condition: Improved Departure-Patient Inst. Decision time for Depature: 05:45 Referrals: [facility] (PCP) Primary Care Physician JUNE TAMAYO (Family) Primary Care Physician Patient Instructions: Asthma, Adult (DC), Pneumonia, Adult (DC) Add. Discharge Instructions: Tomorrow start taking cefdinir 1 capsule twice a day for the next 9 days. Tomorrow start taking azithromycin 1 tablet daily for the next 4 days. Start taking 2 puffs off of your albuterol inhaler every 6 hours. Take an additional 2 puffs of albuterol every 4 hours if you're still having wheezing or coughing fits. You may continue to use humidifiers, vapor rubs, Mucinex etc. If you're still having difficulty with shortness of breath, coughing etc. despite these treatments then please return to the nearest ER. Plan to follow up with your primary care doctor in about 3-5 days for follow-up. All discharge instructions reviewed with patient and/or family. Voiced understanding. Scripts Inhaler, Assist Devices (Space Chamber Plus) 1 Each Spacer EACH MC for Wheezing, #1 0 Refills Prov: RUDDY FRANKLIN 12/14/19 Albuterol Sulfate (PROAIR HFA) 1 Puff Puff 2 PUFF IH Q4H PRN for WHEEZING, #1 EA 0 Refills 1 PUFF = 90 MCG Prov: RUDDY FRANKLIN 12/14/19 Cefdinir (Cefdinir) 300 Mg Capsule 300 MG PO BID for 9 Days, #18 CAP 0 Refills Prov: RUDDY FRANKLIN 12/14/19 Azithromycin (Azithromycin) 250 Mg Tablet 250 MG PO DAILY, #4 TAB 0 Refills Prov: RUDDY FRANKLIN 12/14/19 Work/School Note: Work Release Form Date Seen in the Emergency Department: Dec 14, 2019 Return to Work: Dec 17, 2019 Restrictions: Return-No Fever (24hrs) RUDDY FRANKLIN Dec 14, 2019 05:12
[2019-12-14 05:36] LABS: BASOPHILS % (AUTO) 0 % (0-10); EOSINOPHILS # (AUTO) 0.5 10^3/uL (0.0-0.3); EOSINOPHILS % (AUTO) 8 % (0-10); HEMATOCRIT 47 % (40-54); HEMOGLOBIN 15.4 G/DL (13.3-17.7); LYMPHOCYTES # (AUTO) 1.9 X 10^3 (1.0-4.0); LYMPHOCYTES % (AUTO) 28 % (12-44); MEAN CORPUSCULAR HEMOGLOBIN 28 PG (25-34); MEAN CORPUSCULAR HGB CONC 33 G/DL (32-36); MEAN CORPUSCULAR VOLUME 86 FL (80-99); MEAN PLATELET VOLUME 9.7 FL (7.4-10.4); MONOCYTES # (AUTO) 1.1 X 10^3 (0.0-1.0); MONOCYTES % (AUTO) 16 % (0-12); NEUTROPHILS # (AUTO) 3.3 X 10^3 (1.8-7.8); NEUTROPHILS % (AUTO) 48 % (42-75); PLATELET COUNT 230 10^3/uL (130-400); RED CELL DISTRIBUTION WIDTH 13.1 % (10.0-14.5); WHITE BLOOD COUNT 6.9 10^3/uL (4.3-11.0)
[2019-12-14] MEDS ORDERED: cefTRIAXone 1,000 MG/2.86 ml vial (IM ONLY) IM ONE (05:45)
[2019-12-14] MEDS ORDERED: AZITHROMYCIN 250 MG TAB (ZITHROMAX) PO ONE (05:45)
[2019-12-14] MEDS ORDERED: LIDOCAINE 1% INJ 20 ML 20 ML VIAL INJ ONE (05:45)
[2019-12-14 05:59] LABS: BUN/CREATININE RATIO 10; CALCIUM 9.2 MG/DL (8.5-10.1); CARBON DIOXIDE 24 MMOL/L (21-32); CHLORIDE 106 MMOL/L (98-107); CREATININE SERUM 0.92 MG/DL (0.60-1.30); GFR ESTIMATED > 60; GLUCOSE 92 MG/DL (70-105); POTASSIUM 3.4 MMOL/L (3.6-5.0); SODIUM 141 MMOL/L (135-145)
[2019-12-14] MEDS ORDERED: RT-ALBUINH IH ×2 (06:00→10:37)
[2019-12-14] MEDS ORDERED: AZIT250T12 PO ×2 (06:00→10:37)
[2019-12-14] MEDS ORDERED: INHA1SPA24 MC (06:00)
[2019-12-14] MEDS ORDERED: CEFD300C3 PO ×2 (06:00→10:37)
[2019-12-14 06:12] VITALS: BP 130/77
--- NOTE | 2019-12-14 07:05 | Diagnostic Imaging Report ---
Reason for examination: Cough and congestion. 2 views of the chest were obtained and compared to 11/17/2019. There is lingular and left lower lobe airspace opacity as well as left perihilar opacity. This is persistent from the prior study. No effusions or cavitation. No pneumothorax. Heart size and mediastinum are within normal limits. IMPRESSION: 1. Persistent lingular, left lower lobe and left perihilar opacities. Continued follow-up is recommended to document resolution. Given the persistence, CT of the chest should be considered. Dictated by: Dictated on workstation # [id number]
== END 2019-12-14 06:12 | disposition home or self-care (01) ==
LOC: EDUNIT# 04:19 → ER 04:23
DX: J18.9 Pneumonia, unspecified organism (principal); J45.909 Unspecified asthma, uncomplicated; G40.909 Epilepsy, unspecified, not intractable, without status epilepticus; F32.9 Major depressive disorder, single episode, unspecified; Z79.52 Long term (current) use of systemic steroids; Z87.891 Personal history of nicotine dependence
CPT/HCPCS: 36415; 71046; 80048; 85025; 86141; 87804; 94640; 96372

== ENCOUNTER 2019-12-16 04:59 | Emergency (ER) | payer SELFPAY ==
[~2019-12-16] VITALS: Ht 180 cm; Wt 70.3 kg
[~2019-12-16 04:59] MED LIST changes: +AZIT250T12 PO; +CEFD300C3 PO; +INHA1SPA24 MC
[2019-12-16 05:20] LABS: ABG BASE EXCESS 1.5 MMOL/L (-2.5-2.5); ABG OXYGEN SATURATION 96 % (94-100); ABG PCO2 38 MMHG (35-45); ABG PH 7.44 (7.37-7.43); ABG PO2 69 MMHG (79-93); ABG TCO2 26.8 MMOL/L (21.0-31.0); ALLENS TEST YES-POS; INSPIRED O2 RA; PATIENT TEMP 95.6; VENTILATOR NO
--- NOTE | 2019-12-16 05:20 | ED Respiratory ---
General Chief Complaint: Cough/Cold/Flu Symptoms Stated Complaint: SOB,CONGESTION Source: patient Exam Limitations: no limitations History of Present Illness Date Seen by Provider: Dec 16, 2019 Time Seen by Provider: 05:03 Initial Comments Patient presents to ER by private conveyance from home with chief complaint that he feels short of breath. He was diagnosed with pneumonia and put on outpatient antibiotics. He has a history of asthma or using his albuterol 2-4 puffs up to 3 times a day. He says he does not feel any better but actually worse. He does not use oxygen at home. He is disabled secondary to seizure disorder. He denies nausea vomiting diarrhea rash or constipation. Allergies and Home Medications Allergies Coded Allergies: No Known Drug Allergies (Unverified , 06/14/14) Home Medications Albuterol Sulfate 1 Puff Puff, 2 PUFF IH Q4H 1 PUFF = 90 MCG Prescribed by: TAMI NAVA on 10/18/18 0912 Albuterol Sulfate 1 Puff Puff, 2 PUFF IH Q4H PRN for WHEEZING 1 PUFF = 90 MCG. Prescribed by: NARESH MATHIS on 12/14/19 1037 Azithromycin 250 Mg Tablet, 250 MG PO DAILY . Prescribed by: NARESH MATHIS on 12/14/19 1037 Cefdinir 300 Mg Capsule, 300 MG PO BID . Prescribed by: NARESH MATHIS on 12/14/19 1037 Methylprednisolone 4 Mg Tab.ds.pk, 4 MG PO UD PER DOSE PACK INSTRUCTIONS Prescribed by: NARESH MATHIS on 11/17/192102 Prednisone 20 Mg Tab, 1 TAB PO DAILY Prescribed by: TAMI NAVA on 10/18/18 0912 Patient Home Medication List Home Medication List Reviewed: Yes Review of Systems Review of Systems Constitutional: chills, fever, malaise EENTM: No ear discharge, No ear pain Respiratory: cough, short of breath, wheezing Cardiovascular: No chest pain, No palpitations Gastrointestinal: No abdominal pain, No nausea, No vomiting Genitourinary: No discharge, No dysuria Musculoskeletal: No back pain, No joint pain Skin: No pruritus, No rash Psychiatric/Neurological: Denies Headache, Denies Numbness, Denies Paresthesia Past Lpryjli-Gxatlp-Senjrl Hx Patient Social History Alcohol Use: Denies Use Recreational Drug Use: No Smoking Status: Former Smoker Type Used: Cigarettes Former Smoker, Quit: Jul 17, 2019 2nd Hand Smoke Exposure: Yes Recent Foreign Travel: No Contact w/Someone Who Travel: No Recent Hopitalizations: No Immunizations Up To Date Tetanus Booster (TDap): Less than 5yrs Date of Pneumonia Vaccine: Apr 25, 2014 Date of Influenza Vaccine: Jul 25, 2013 Seasonal Allergies Seasonal Allergies: Yes Past Medical History Surgeries: Yes (DENTAL ) Respiratory: Yes Asthma Cardiac: No Neurological: Yes Seizure Disorder Reproductive Disorders: No Sexually Transmitted Disease: No HIV/AIDS: No Genitourinary: No Gastrointestinal: No Musculoskeletal: Yes Endocrine: No HEENT: No Cancer: No Psychosocial: Yes Depression Integumentary: No Blood Disorders: No Family Medical History Patient reports no known family medical history. No Pertinent Family Hx Physical Exam Vital Signs - First Documented Capillary Refill : Height: 5'11.00" Weight: 150lbs. 4.0oz. 68.526622tu; 22.00 BMI Method:Stated General Appearance: WD/WN, no apparent distress Eyes: Bilateral Eye Normal Inspection, Bilateral Eye PERRL, Bilateral Eye EOMI HEENT: PERRL/EOMI, normal ENT inspection, TMs normal, pharynx normal Neck: non-tender, full range of motion, supple, normal inspection Respiratory: no respiratory distress, no accessory muscle use, wheezing (scant expiratory without prolonged expiratory phase) Cardiovascular: normal peripheral pulses, regular rate, rhythm, no edema Extremities: normal range of motion, non-tender, normal capillary refill Neurologic/Psychiatric: alert, normal mood/affect, oriented x 3 Skin: normal color, warm/dry Progress/Results/Core Measures Suspected Sepsis SIRS Temperature: Pulse: Respiratory Rate: Laboratory Tests 12/16/19 05:15: White Blood Count 7.2 Blood Pressure / Mean: Laboratory Tests 12/16/19 05:15: Creatinine 1.06, Platelet Count 248, Total Bilirubin 0.4 Results/Orders Lab Results Laboratory Tests Test 12/16/19 05:13 12/16/19 05:15 Range/Units Blood Gas Puncture Site L RAD Blood Gas Patient Temperature 95.6 Arterial Blood pH 7.44 H 7.37-7.43 Arterial Blood Partial Pressure CO2 38 35-45 MMHG Arterial Blood Partial Pressure O2 69 L 79-93 MMHG Arterial Blood HCO3 26 23-27 MMOL/L Arterial Blood Total CO2 26.8 21.0-31.0 MMOL/L Arterial Blood Oxygen Saturation 96 94-100 % Arterial Blood Base Excess 1.5 -2.5-2.5 MMOL/L Corey Test YES-POS Blood Gas Ventilator Setting NO Blood Gas Inspired Oxygen RA White Blood Count 7.2 4.3-11.0 10^3/uL Red Blood Count 5.01 4.35-5.85 10^6/uL Hemoglobin 14.1 13.3-17.7 G/DL Hematocrit 44 40-54 % Mean Corpuscular Volume 87 80-99 FL Mean Corpuscular Hemoglobin 28 25-34 PG Mean Corpuscular Hemoglobin Concent 32 32-36 G/DL Red Cell Distribution Width 13.2 10.0-14.5 % Platelet Count 248 130-400 10^3/uL Mean Platelet Volume 9.8 7.4-10.4 FL Neutrophils (%) (Auto) 45 42-75 % Lymphocytes (%) (Auto) 34 12-44 % Monocytes (%) (Auto) 13 H 0-12 % Eosinophils (%) (Auto) 8 0-10 % Basophils (%) (Auto) 0 0-10 % Neutrophils # (Auto) 3.3 1.8-7.8 X 10^3 Lymphocytes # (Auto) 2.4 1.0-4.0 X 10^3 Monocytes # (Auto) 0.9 0.0-1.0 X 10^3 Eosinophils # (Auto) 0.6 H 0.0-0.3 10^3/uL Basophils # (Auto) 0.0 0.0-0.1 10^3/uL Sodium Level 140 135-145 MMOL/L Potassium Level 3.8 3.6-5.0 MMOL/L Chloride Level 105 98-107 MMOL/L Carbon Dioxide Level 24 21-32 MMOL/L Anion Gap 11 5-14 MMOL/L Blood Urea Nitrogen 14 7-18 MG/DL Creatinine 1.06 0.60-1.30 MG/DL Estimat Glomerular Filtration Rate > 60 BUN/Creatinine Ratio 13 Glucose Level 102 70-105 MG/DL Calcium Level 9.6 8.5-10.1 MG/DL Corrected Calcium 9.4 8.5-10.1 MG/DL Total Bilirubin 0.4 0.1-1.0 MG/DL Aspartate Amino Transf (AST/SGOT) 25 5-34 U/L Alanine Aminotransferase (ALT/SGPT) 20 0-55 U/L Alkaline Phosphatase 92 40-136 U/L C-Reactive Protein High Sensitivity 1.02 H 0.00-0.50 MG/DL Total Protein 7.9 6.4-8.2 GM/DL Albumin 4.2 3.2-4.5 GM/DL Micro Results Microbiology 12/16/19 Influenza Types A,B Antigen (RA) - Final, Complete My Orders Orders - RUDDY FRANKLIN Influenza A And B Antigens (12/16/19 05:13) Cbc With Automated Diff (12/16/19 05:13) Comprehensive Metabolic Panel (12/16/19 05:13) Hs C Reactive Protein (12/16/19 05:13) Arterial Blood Gas (12/16/19 05:13) Chest 1 View, Ap/Pa Only (12/16/19 05:13) Albuterol Pre-Mix Nebs (Rt) (Proventil (12/16/19 05:21) Svn Small Volume Nebulizer (12/16/19 05:21) Rx-Albuterol Nebs (Rx-Proventil Nebs) (12/16/19 06:12) Vital Signs/I&O 12/16/19 12/16/19 12/16/19 05:07 05:07 06:04 Temp 35.1 Pulse 68 Resp 20 B/P (MAP) 121/80 (94) Pulse Ox 99 100 O2 Delivery Room Air Room Air Room Air Capillary Refill : Progress Note #1: Time: 05:18 Progress Note Repeat influenza swab, chest x-ray and basic labs. Patient has normal vital signs with oxygen saturation of 98% on room air. Scant wheezes heard and he says last breathing treatment was about 3 hours prior to arrival. Suspect that he is doing better than he gives himself credit for. ABG to confirm is not having any acute respiratory distress. Reviewing old x-rays shows he had similar appearance from over 4 weeks ago however he's only been on antibiotics for 2 days. It would be reasonable to do a CT scan although this can probably be done outpatient if he is not having any acute distress. Progress Note #2: Time: 06:16 Progress Note Patient felt he is breathing much better after the nebulized albuterol so we'll send him home with a nebulizer and some albuterol. He has an appointment later today with Pascual Noel. We have encouraged him to follow-up imaging to resolution through his primary care doctor. Diagnostic Imaging Diagonstic Imaging: Xray Plain Films/CT/US/NM/MRI: chest (11v) Comments Demonstrates improvement from x-ray obtained 2 days ago. Reviewed: Reviewed by Me Departure Impression Primary Impression: Pneumonia Qualified Codes: J18.1 - Lobar pneumonia, unspecified organism Additional Impression: Asthma Qualified Codes: J45.901 - Unspecified asthma with (acute) exacerbation Disposition: 01 HOME, SELF-CARE Condition: Improved Departure-Patient Inst. Decision time for Depature: 06:17 Referrals: [facility]/ (PCP) Primary Care Physician JUNE NOEL (Family) Primary Care Physician Patient Instructions: Asthma in Adults, Pneumonia, Adult (DC) Add. Discharge Instructions: Take the albuterol every 6 hours while awake through the nebulizer. Every 4 hours if you need to take another dose you may take 2.5 mg of the nebulizer for coughing or wheezing. Keep your follow-up appointment with your primary care provider. Follow-up your pneumonia to completion with primary care office. Afterwards a CT of the chest may be indicated to demonstrate resolution of the lower lobe infiltrate. All discharge instructions reviewed with patient and/or family. Voiced understanding. Scripts Albuterol Sulfate (Albuterol Sulfate) 2.5 Mg/3 Ml Vial.neb 2.5 MG INH Q4H PRN for WHEEZING, #50 EA 1 Refill Prov: RUDDY FRANKLIN 12/16/19 RUDDY FRANKLIN Dec 16, 2019 05:20
[2019-12-16] MEDS ORDERED: RT-ALBUTEROL SULF 2.5 MG/3 ML PRE-MIX VIAL INH STA (05:21)
[2019-12-16 05:23] LABS: BASOPHILS % (AUTO) 0 % (0-10); EOSINOPHILS # (AUTO) 0.6 10^3/uL (0.0-0.3); EOSINOPHILS % (AUTO) 8 % (0-10); HEMATOCRIT 44 % (40-54); HEMOGLOBIN 14.1 G/DL (13.3-17.7); LYMPHOCYTES # (AUTO) 2.4 X 10^3 (1.0-4.0); LYMPHOCYTES % (AUTO) 34 % (12-44); MEAN CORPUSCULAR HEMOGLOBIN 28 PG (25-34); MEAN CORPUSCULAR HGB CONC 32 G/DL (32-36); MEAN CORPUSCULAR VOLUME 87 FL (80-99); MEAN PLATELET VOLUME 9.8 FL (7.4-10.4); MONOCYTES # (AUTO) 0.9 X 10^3 (0.0-1.0); MONOCYTES % (AUTO) 13 % (0-12); NEUTROPHILS # (AUTO) 3.3 X 10^3 (1.8-7.8); NEUTROPHILS % (AUTO) 45 % (42-75); PLATELET COUNT 248 10^3/uL (130-400); RED CELL DISTRIBUTION WIDTH 13.2 % (10.0-14.5); WHITE BLOOD COUNT 7.2 10^3/uL (4.3-11.0)
[2019-12-16 05:40] LABS: ALANINE AMINOTRANSFERASE 20 U/L (0-55); ALBUMIN 4.2 GM/DL (3.2-4.5); ALKALINE PHOSPHATASE 92 U/L (40-136); BILIRUBIN,TOTAL 0.4 MG/DL (0.1-1.0); BUN/CREATININE RATIO 13; CALCIUM 9.6 MG/DL (8.5-10.1); CARBON DIOXIDE 24 MMOL/L (21-32); CHLORIDE 105 MMOL/L (98-107); CREATININE SERUM 1.06 MG/DL (0.60-1.30); GFR ESTIMATED > 60; GLUCOSE 102 MG/DL (70-105); POTASSIUM 3.8 MMOL/L (3.6-5.0); SODIUM 140 MMOL/L (135-145); TOTAL PROTEIN 7.9 GM/DL (6.4-8.2)
[2019-12-16] MEDS ORDERED: RX-ALBUTEROL NEB 2.5 MG/3 ML PACK #5 IH STA (06:12)
[2019-12-16] MEDS ORDERED: ALBU2.5V4 INH (06:21)
--- NOTE | 2019-12-16 06:27 | Diagnostic Imaging Report ---
INDICATION: Cough and congestion. COMPARISON: 12/14/2019. FINDINGS: There has been improvements in patchy infiltrates in the left lung. There is no effusion, pneumothorax, failure pattern or adverse change. IMPRESSION: Patchy areas of infiltrates greater left than right shows at least mild radiographic improvement with no evidence for pleural fluid or adverse development. Dictated by: Dictated on workstation # [id number]
[2019-12-16 06:28] VITALS: BP 119/90
== END 2019-12-16 06:28 | disposition home or self-care (01) ==
LOC: EDUNIT# 04:59 → ER 05:00
DX: J18.9 Pneumonia, unspecified organism (principal); J45.909 Unspecified asthma, uncomplicated; G40.909 Epilepsy, unspecified, not intractable, without status epilepticus; F32.9 Major depressive disorder, single episode, unspecified; Z79.52 Long term (current) use of systemic steroids; Z87.891 Personal history of nicotine dependence; Z77.22 Contact with and (suspected) exposure to environmental tobacco smoke (acute) (chronic)
CPT/HCPCS: 36415; 71045; 80053; 82805; 85025; 86141; 87804; 94640

== ENCOUNTER 2020-08-17 07:20 | Emergency (ER) | payer SELFPAY ==
[~2020-08-17] VITALS: Ht 180 cm; Wt 70.0 kg
[~2020-08-17 07:20] MED LIST changes: +ALBU2.5V4 INH
[2020-08-17 07:35] VITALS: BP 131/99
[2020-08-17] MEDS ORDERED: ALB0.5V INH (07:48)
[2020-08-17] MEDS ORDERED: PRD20T PO (07:48)
--- NOTE | 2020-08-17 07:51 | ED Cough/URI ---
General Chief Complaint: Respiratory Problems Stated Complaint: WHEEZING/COUGH/SOA Nursing Triage Note: PT CO OF SOA AND WHEEZING STATES HAS ALLERGIES, AND ASTHMA, PT STATES HAS BEEN TESTED FRIDAY FOR COVID FRIDAY AT [facility]. PT DENIES FEVER. PT STATES IS WHEEZING. CO OF SORE THROAT FOR A COUPLE DAYS Sepsis Screen: No Definite Risk Source: patient Exam Limitations: no limitations History of Present Illness Date Seen by Provider: Aug 17, 2020 Time Seen by Provider: 07:23 Initial Comments This 30-year-old gentleman presents to the emergency room with complaints of asthma exacerbation and allergies. He was tested for COVID 19 on August 14 at [facility] and does not yet have his results. His children have recently tested positive. He complains of runny nose, a tightening or discomfort in his throat with deep inspiration and expiration, and exacerbation of asthma wheezing. He denies fever, headache, myalgia, or other COVID-19 complaints. Patient reports he takes prednisone 10 mg daily as chronic therapy. However, he reports this is due to seizure disorder not asthma. He denies smoking. Allergies and Home Medications Allergies Coded Allergies: No Known Drug Allergies (Unverified , 06/14/14) Home Medications Albuterol Sulfate 1 Puff Puff, 2 PUFF IH Q4H 1 PUFF = 90 MCG Prescribed by: TAMI NAVA on 10/18/18 0912 Albuterol Sulfate 1 Puff Puff, 2 PUFF IH Q4H PRN for WHEEZING 1 PUFF = 90 MCG. Prescribed by: NARESH MATHIS on 12/14/19 1037 Albuterol Sulfate 2.5 Mg/3 Ml Vial.neb, 2.5 MG INH Q4H PRN for WHEEZING Prescribed by: RUDDY FRANKLIN on 12/16/19 0621 Albuterol Sulfate 2.5 Mg/0.5 Ml Vial.neb, 2.5 MG INH Q4H PRN for WHEEZING Prescribed by: TAMI NAVA on 08/17/20 0748 Azithromycin 250 Mg Tablet, 250 MG PO DAILY . Prescribed by: NARESH MATHIS on 12/14/19 1037 Cefdinir 300 Mg Capsule, 300 MG PO BID . Prescribed by: NARESH MATHIS on 12/14/19 1037 Methylprednisolone 4 Mg Tab.ds.pk, 4 MG PO UD PER DOSE PACK INSTRUCTIONS Prescribed by: NARESH MATHIS on 11/17/192102 Prednisone 20 Mg Tab, 1 TAB PO DAILY Prescribed by: TAMI NAVA on 10/18/18 0912 Prednisone 20 Mg Tab, 40 MG PO DAILY Prescribed by: TAMI NAVA on 08/17/20 0748 Patient Home Medication List Home Medication List Reviewed: Yes Review of Systems Review of Systems Constitutional: no symptoms reported EENTM: see HPI Respiratory: see HPI Cardiovascular: no symptoms reported Gastrointestinal: no symptoms reported Genitourinary: no symptoms reported Skin: no symptoms reported Psychiatric/Neurological: No Symptoms Reported Hematologic/Lymphatic: No Symptoms Reported Past Ytmywqk-Afclwj-Yuzyqv Hx Past Med/Social Hx: Reviewed Nursing Past Med/Soc Hx Patient Social History Alcohol Use: Denies Use Recreational Drug Use: No Drug of Choice: marijuana Smoking Status: Former Smoker Type Used: Cigarettes Former Smoker, Quit: Jul 17, 2019 2nd Hand Smoke Exposure: Yes Recent Foreign Travel: No Contact w/Someone Who Travel: No Recent Infectious Disease Expo: No Recent Hopitalizations: No Physical Abuse: No Sexual Abuse: No Immunizations Up To Date Tetanus Booster (TDap): Less than 5yrs PED Vaccines UTD: Yes Date of Pneumonia Vaccine: Apr 25, 2014 Date of Influenza Vaccine: Jul 25, 2013 Seasonal Allergies Seasonal Allergies: Yes Past Medical History Surgeries: Yes (DENTAL ) Respiratory: Yes Asthma Cardiac: No Neurological: Yes Seizure Disorder Reproductive Disorders: No Sexually Transmitted Disease: No HIV/AIDS: No Genitourinary: No Gastrointestinal: No Musculoskeletal: Yes Endocrine: No HEENT: No Cancer: No Psychosocial: Yes Depression Integumentary: No Blood Disorders: No Family Medical History Patient reports no known family medical history. No Pertinent Family Hx Physical Exam Vital Signs - First Documented 08/17/20 07:35 Temp 36.5 Pulse 71 Resp 18 B/P (MAP) 131/99 (110) Pulse Ox 97 Capillary Refill : Less Than 3 Seconds Height: 5'11.00" Weight: 150lbs. 4.0oz. 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 Patient is not in respiratory distress. I encouraged him to use an allergy medication daily. I've instructed him to take a short burst of prednisone. Nebulizer vials were prescribed. He was encouraged to follow up with his primary care provider to further discuss asthma maintenance. Departure Impression Primary Impression: Asthma exacerbation Qualified Codes: J45.901 - Unspecified asthma with (acute) exacerbation Additional Impression: URI (upper respiratory infection) Qualified Codes: J06.9 - Acute upper respiratory infection, unspecified Disposition: HOME, SELF-CARE Condition: Stable Departure-Patient Inst. Decision time for Depature: 07:47 Referrals: [facility] (PCP) Primary Care Physician JUNE TAMAYO (Family) Primary Care Physician Patient Instructions: Asthma, Adult (DC), COVID19 Add. Discharge Instructions: You may use the albuterol nebulized treatments every 4 hours as needed for shortness of breath and wheezing. Add an allergy medication such as Claritin, Zyrtec, or Jannette daily until the first hard freeze. You may use the less expensive generic equivalents. Make a follow-up appointment with your primary care provider to discuss asthma maintenance. Increase your prednisone to 40 mg daily for the next 4 days. Avoid any inhaled irritants such as smoke, dust, pollen, etc. Continue to quarantine until the results of your COVID-19 testing are known. Call your doctor or return to care if you have any further questions or concerns. Return to the ER if you have significant worsening of condition. All discharge instructions reviewed with patient and/or family. Voiced understanding. Scripts Albuterol Sulfate (Albuterol Sulfate) 2.5 Mg/0.5 Ml Vial.neb 2.5 MG INH Q4H PRN for WHEEZING, #50 EACH Prov: TAMI VICKERS MD 08/17/20 Prednisone (Prednisone) 20 Mg Tab 40 MG PO DAILY, #8 TAB 0 Refills Prov: TAMI VICKERS MD 08/17/20 Copy Copies To 1: SHANNA DE LA VEGA JOSHUA T MD Aug 17, 2020 07:51
== END 2020-08-17 08:05 | disposition home or self-care (01) ==
LOC: EDUNIT# 07:20 → ER 07:23
DX: J45.901 Unspecified asthma with (acute) exacerbation (principal); J06.9 Acute upper respiratory infection, unspecified; G40.909 Epilepsy, unspecified, not intractable, without status epilepticus; Z79.52 Long term (current) use of systemic steroids; Z87.891 Personal history of nicotine dependence; Z77.22 Contact with and (suspected) exposure to environmental tobacco smoke (acute) (chronic)
CPT/HCPCS: 99282

== ENCOUNTER 2021-01-25 14:47 | Emergency (ER) | payer SELFPAY ==
[~2021-01-25] VITALS: Ht 180.3 cm; Wt 70.4 kg
[~2021-01-25 14:47] MED LIST changes: +ALB0.5V INH
[2021-01-25] MEDS ORDERED: IOHEXOL 350 MG/ML 100 ML (OMNIPAQUE 350) VIAL IV ONE (16:00)
[2021-01-25] MEDS ORDERED: HOLD METFORMIN - RECEIVED CONTRAST 20 ML VIAL IV SCH (16:00)
[2021-01-25] MEDS ORDERED: NS 100 ML (IVPB) BAG IV ONE (16:00)
[2021-01-25] MEDS ORDERED: fentaNYL INJECTION 100 MCG/2 ML AMP IVP ONE (16:15)
[2021-01-25 16:18] LABS: BASOPHILS % (AUTO) 1 % (0-10); EOSINOPHILS # (AUTO) 0.4 10^3/uL (0.0-0.3); EOSINOPHILS % (AUTO) 5 % (0-10); HEMATOCRIT 44 % (40-54); HEMOGLOBIN 14.4 g/dL (13.3-17.7); LYMPHOCYTES # (AUTO) 2.5 10^3/uL (1.0-4.0); LYMPHOCYTES % (AUTO) 29 % (12-44); MEAN CORPUSCULAR HEMOGLOBIN 29 pg (25-34); MEAN CORPUSCULAR HGB CONC 33 g/dL (32-36); MEAN CORPUSCULAR VOLUME 89 fL (80-99); MONOCYTES # (AUTO) 0.8 10^3/uL (0.0-1.0); MONOCYTES % (AUTO) 9 % (0-12); NEUTROPHILS # (AUTO) 4.9 10^3/uL (1.8-7.8); NEUTROPHILS % (AUTO) 56 % (42-75); PLATELET COUNT 275 10^3/uL (130-400); WHITE BLOOD COUNT 8.7 10^3/uL (4.3-11.0)
[2021-01-25 16:24] LABS: INR 0.9 (0.8-1.4); PROTHROMBIN TIME PATIENT 12.8 SEC (12.2-14.7)
[2021-01-25 16:27] LABS: ALBUMIN 4.2 GM/DL (3.2-4.5)
[2021-01-25 16:28] LABS: CHLORIDE 106 MMOL/L (98-107); SODIUM 142 MMOL/L (135-145)
[2021-01-25 16:29] LABS: CALCIUM 9.1 MG/DL (8.5-10.1)
[2021-01-25 16:30] LABS: GLUCOSE 85 MG/DL (70-105); TOTAL PROTEIN 7.8 GM/DL (6.4-8.2)
[2021-01-25 16:31] LABS: CARBON DIOXIDE 24 MMOL/L (21-32)
[2021-01-25 16:32] LABS: BILIRUBIN,TOTAL 0.6 MG/DL (0.1-1.0)
[2021-01-25 16:33] LABS: ALKALINE PHOSPHATASE 92 U/L (40-136)
[2021-01-25 16:34] LABS: CREATININE SERUM 1.05 MG/DL (0.60-1.30); GFR ESTIMATED > 60
[2021-01-25 16:35] LABS: BUN/CREATININE RATIO 13
[2021-01-25 16:37] LABS: ALANINE AMINOTRANSFERASE 21 U/L (0-55)
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
[2021-01-25 17:29] LABS: BILIRUBIN,URINE NEGATIVE (NEGATIVE); CLARITY,URINE CLEAR; COLOR,URINE YELLOW; GLUCOSE, URINE (UA) NEGATIVE (NEGATIVE); KETONES,URINE 1+ (NEGATIVE); LEUKOCYTE ESTERASE ,URINE NEGATIVE (NEGATIVE); NITRITE,URINE NEGATIVE (NEGATIVE); PROTEIN,URINE NEGATIVE (NEGATIVE)
[2021-01-25] MEDS ORDERED: KETOROLAC 30 MG/ML VIAL IVP ONE (17:30)
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
[2021-01-25 17:45] VITALS: BP 124/89
[2021-01-25 17:53] LABS: BACTERIA,URINE NEGATIVE /HPF
== END 2021-01-25 17:49 | disposition home or self-care (01) ==
LOC: EDUNIT# 14:47 → ER 14:51
DX: S27.329A Contusion of lung, unspecified, initial encounter (principal); R10.84 Generalized abdominal pain; I27.20 Pulmonary hypertension, unspecified; J45.909 Unspecified asthma, uncomplicated; F17.210 Nicotine dependence, cigarettes, uncomplicated; Z79.52 Long term (current) use of systemic steroids; V89.2XXA Person injured in unspecified motor-vehicle accident, traffic, initial encounter
CPT/HCPCS: 36415; 71260; 74177; 80053; 81000; 83735; 83874; 84484; 85025; 85610; 85730; 87088; 93041; 93306

== ENCOUNTER 2021-04-08 00:27 | Emergency (ER) | payer SELFPAY | END 2021-04-08 00:58 | disposition left against medical advice (07) | LOC: EDUNIT# 00:27 → ER 00:29 | DX: R68.89 Other general symptoms and signs (principal) ==

== ENCOUNTER 2021-07-31 02:21 | Emergency (ER) | payer SELFPAY ==
[~2021-07-31] VITALS: Ht 180 cm; Wt 70.4 kg
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
[2021-07-31 02:45] LABS: HEMATOCRIT 43 % (40-54); HEMOGLOBIN 13.4 g/dL (13.3-17.7); MEAN CORPUSCULAR HEMOGLOBIN 29 pg (25-34); MEAN CORPUSCULAR HGB CONC 31 g/dL (32-36); MEAN CORPUSCULAR VOLUME 94 fL (80-99); MEAN PLATELET VOLUME 9.9 fL (9.0-12.2); PLATELET COUNT 258 10^3/uL (130-400); WHITE BLOOD COUNT 7.7 10^3/uL (4.3-11.0)
[2021-07-31] MEDS ORDERED: NS IV 1000 ML 1,000 ML IV SCH (02:45)
[2021-07-31 02:59] LABS: POTASSIUM 3.9 MMOL/L (3.6-5.0)
[2021-07-31 03:00] LABS: CALCIUM 9.4 MG/DL (8.5-10.1)
[2021-07-31 03:02] LABS: TOTAL PROTEIN 7.5 GM/DL (6.4-8.2)
[2021-07-31 03:03] LABS: BILIRUBIN,TOTAL 0.8 MG/DL (0.1-1.0)
[2021-07-31 03:05] LABS: PHOSPHORUS 3.6 MG/DL (2.3-4.7)
[2021-07-31 03:06] LABS: CREATININE SERUM 1.03 MG/DL (0.60-1.30)
[2021-07-31 03:07] LABS: BILIRUBIN,DIRECT 0.2 MG/DL (0.0-0.3); BILIRUBIN,INDIRECT 0.6 MG/DL
[2021-07-31 03:19] LABS: FIBRIN DEGRADATION PRODUCTS < 0.27 UG/ML (0.00-0.49); FIBRINOGEN 361 MG/DL (221-496); PARTIAL THROMBOPLASTIN TIME 25 SEC (24-35); PROTHROMBIN TIME PATIENT 13.7 SEC (12.2-14.7)
[2021-07-31] MEDS ORDERED: LIDOCAINE/EPI 1%-1:100,000 (XYLOCAINE) 20ML ONE (03:22)
[2021-07-31] MEDS ORDERED: NS 100 ML (IVPB) BAG IV ONE (03:30)
[2021-07-31] MEDS ORDERED: LIDOCAINE/EPI 1%-1:100,000 (XYLOCAINE) 10 ML INJ ONE (03:30)
[2021-07-31] MEDS ORDERED: TETANUS,DIPTH,PERTUSS P/F (BOOSTRIX) 0.5 ML VIAL IM ONE (03:30)
[2021-07-31] MEDS ORDERED: IOHEXOL 350 MG/ML 100 ML (OMNIPAQUE 350) VIAL IV ONE (03:30)
[2021-07-31] MEDS ORDERED: CEPH500T PO (03:31)
[2021-07-31 03:38] LABS: BILIRUBIN,URINE NEGATIVE (NEGATIVE); CLARITY,URINE CLEAR; COLOR,URINE YELLOW; GLUCOSE, URINE (UA) NEGATIVE (NEGATIVE); KETONES,URINE NEGATIVE (NEGATIVE); LEUKOCYTE ESTERASE ,URINE NEGATIVE (NEGATIVE); NITRITE,URINE NEGATIVE (NEGATIVE); PROTEIN,URINE NEGATIVE (NEGATIVE)
[2021-07-31 03:45] LABS: BACTERIA,URINE NEGATIVE /HPF; RBC,URINE 0-2 /HPF; SQUAMOUS EPITHELIAL CELL,UR 0-2 /HPF
[2021-07-31] MEDS ORDERED: CEPHALEXIN 250 MG (KEFLEX) CAP PO SCH (03:45)
[2021-07-31 03:51] LABS: AMPHETAMINE SCREEN, URINE NEGATIVE (NEGATIVE); BARBITURATE SCREEN URINE NEGATIVE (NEGATIVE); BENZODIAZEPINES SCREEN URINE NEGATIVE (NEGATIVE); CANNABINOID SCREEN, URINE POSITIVE (NEGATIVE); COCAINE SCREEN URINE NEGATIVE (NEGATIVE); METHADONE STAT NEGATIVE (NEGATIVE); METHAMPHETAMINE SCREEN URINE S NEGATIVE (NEGATIVE); OPIATE SCREEN URINE NEGATIVE (NEGATIVE); OXYCODONE STAT NEGATIVE (NEGATIVE); PROPOXYPHENE STAT NEGATIVE (NEGATIVE); TRICYCLIC ANTIDEPRESSANTS SCRE NEGATIVE (NEGATIVE)
[2021-07-31 04:04] VITALS: BP 106/78
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
== END 2021-07-31 04:05 | disposition home or self-care (01) ==
LOC: EDUNIT# 02:21 → ER 02:23
DX: S31.010A Laceration without foreign body of lower back and pelvis without penetration into retroperitoneum, initial encounter (principal); F12.90 Cannabis use, unspecified, uncomplicated; J45.909 Unspecified asthma, uncomplicated; F17.210 Nicotine dependence, cigarettes, uncomplicated; Z72.89 Other problems related to lifestyle; Z23 Encounter for immunization; Z79.52 Long term (current) use of systemic steroids; Y04.8XXA Assault by other bodily force, initial encounter
CPT/HCPCS: 71045; 71260; 72128; 72131; 72170; 74177; 80048; 80076; 80306; 81000; 82550; 83605; 83735; 84100; 85027; 85379; 85384; 85610; 85730; 86850; 86900; 86901; 86920; 90471; 99284; G0480; 36415; 80320; 90715